=== PATIENT | female | born 1950 | race Caucasian/White ===

== ENCOUNTER 2022-06-28 12:22 | Emergency (ER) | payer MEDICARE, SELFPAY ==
[2022-06-28 12:37] VITALS: BP 118/82; PULSE 85; RESP 18; TEMP 36.6; O2SAT 97; BMI 29.2
--- NOTE | 2022-06-28 13:34 | ED.ABDPAIN ---
HPI - Abdominal Pain General Time Seen by Provider: 13:35 Date Seen: 06/28/22 Chief Complaint: Flank Pain Stated Complaint: Poss kidney stone, nausea vomiting Time Seen by Provider: 06/28/22 13:34 Source: patient, RN notes reviewed and old records reviewed Mode of arrival: ambulatory Limitations: no limitations History of Present Illness HPI narrative: patient is a very pleasant 72-year-old female with a history of kidney stones and urinary tract infection as well as hypertension, cholecystectomy who comes to the emergency room for evaluation regarding 48 hours of vomiting and diarrhea. Patient states that for 48 hours she has had nonbloody liquid diarrhea that she describes is pouring out of her. This is associated with persistent vomiting and she has been unable to keep anything down. Briefly she ate a sandwich yesterday but vomited up a few hours later. She has not had fever or chills. She has no known ill contacts at this point. She does describe the onset of right flank pain yesterday that eventually went away. It did come back again this morning. Patient did take oxycodone this morning. She states that it is not present at this time. She notes that she does get relief of how she feels when she vomits but no change in discomfort when she has a bowel movement. Patient denies any symptoms of COVID. notes she has not taken her antihypertensives for 2 days which include hydrochlorothiazide and losartan. Patient does have a history of a kidney stone and stated when she had this she also received antibiotics so she felt she also had a coexisting infection. No recent antibiotics or history of C diff. Related Data Home Medications Medication Instructions Recorded Confirmed hydrochlorothiazide 25 mg tablet 25 mg PO DAILY 06/28/22 06/28/22 losartan 50 mg tablet 50 mg PO DAILY 06/28/22 06/28/22 Previous Rx's Medication Instructions Recorded cefdinir 300 mg capsule 300 mg PO BID 7 days #14 caps 06/28/22 Allergies Allergy/AdvReac Type Severity Reaction Status Date / Time No Known Drug Allergies Allergy Verified 06/28/22 16:35 Review of Systems Status of ROS Reports: 10 or more systems reviewed and unremarkable except as noted in History and below Const Denies: fever or chills ENMT Denies: throat pain or difficulty swallowing Cardio Denies: chest pain, edema, swelling of feet/ankles or shortness of breath with exertion Resp Denies: shortness of breath or cough GI Reports: abdominal pain ( Uncomfortable), nausea, vomiting and diarrhea; Denies: difficulty swallowing or blood in stool Denies: painful urination Musculo Reports: back pain ( occasional episodes of right flank pain.) Neuro Denies: headache PFSH PFSH Social History Smoking Status: Never smoker How often do you have a drink containing alcohol: never AUDIT-C Alcohol total score: 0 Non-prescribed substance use: denies use Exam Narrative: Exam Narrative: Patient is currently in the hallway due to high patient volume. She is nontoxic but she is fatigued in appearance. Oral cavity with tacky mucous membranes. Neck is supple without lymphadenopathy. Heart with a regular rate and rhythm. Lungs are clear bilaterally. Abdomen is soft no tenderness. No CVA tenderness with percussion. Lower extremities without edema. Const: Vital Signs, click to edit/add: Vital Signs - 24 hr 06/28/22 12:37 Temperature 97.8 F Pulse Rate [Pulse Oximeter] 85 Respiratory Rate 18 Blood Pressure [Ri ght Upper Arm] 118/82 Pulse Oximetry 97 Oxygen Delivery Me thod Room Air Documenting provider has reviewed patient's vital signs: yes Course Course Hospital Course: Will place IV and give fluids. Will check CBC, comprehensive panel, CRP, urinalysis, amylase, lipase. I do believe that we will need to do a CT scan but given patient's age would prefer to wait on creatinine prior to that. Differential diagnosis does include But is not limited to pyelonephritis, enteritis, C diff, ureteral colic, nephrolithiasis. Reevaluation(s) Reevaluation #1: patient noted to have pain come back. Patient was given morphine 4 mg which did not help her discomfort. She was then given Dilaudid 0.5 mg with moderate improvement. Reevaluation #2: Repeat dose of Dilaudid was given and patient is feels much improved. She has been able to tolerate small amounts of water. Will challenge her with some Sprite at this point. Consultations Consultation #1: [facility] the [facility]. My concern was stones that were noted on a CT. These were nonobstructing stones and therefore Urology does not feel we need to be worried. Certainly she is not septic at this point. Vital Signs Vital signs: Initial Vital Signs Temperature 97.8 F 06/28/22 12:37 Temperature Source Temporal Artery Scan 06/28/22 12:37 Pulse Rate 85 06/28/22 12:37 Respiratory Rate 18 06/28/22 12:37 Blood Pressure 118/82 06/28/22 12:37 Blood Pressure Mean 94 06/28/22 12:37 Blood Pressure Position Sitting 06/28/22 12:37 Pulse Oximetry 97 06/28/22 12:37 Oxygen Delivery Method 06/28/22 12:37 Vital Signs Temperature 97.8 F 06/28/22 12:37 Pulse Rate 85 06/28/22 12:37 Respiratory Rate 18 06/28/22 12:37 Blood Pressure 118/82 06/28/22 12:37 Pulse Oximetry 97 06/28/22 12:37 Oxygen Delivery Method 06/28/22 12:37 Temperature 97.8 F 06/28/22 12:37 Pulse Rate 85 06/28/22 12:37 Respiratory Rate 18 06/28/22 12:37 Blood Pressure 118/82 06/28/22 12:37 Pulse Oximetry 97 06/28/22 12:37 Oxygen Delivery Method 06/28/22 12:37 MDM - Abdominal Pain MDM Narrative Medical decision making narrative: 1. UTI-I do think patient likely has very early pyelonephritis given the appearance of the urine as well as hyperemia of the ureter. Fortunately there is no evidence of perinephric stranding. Patient was given Rocephin 1 g IV. She will continue on Omnicef 300 mg p.o. b.i.d. starting tomorrow morning. Given the severity of her symptoms I did not feel comfortable with Keflex and wanted broader spectrum antibiotic. I would like her to follow up with her primary MD this week so that they can check a culture and ensure correct antibiotic selection. 2. Nausea vomiting diarrhea-I believe this to be viral in nature. Patient has had no further vomiting or diarrhea since she has been here in the emergency room. I advised against the use of Imodium. Return to the emergency room for worsening symptoms. 3. Nephrolithiasis without ureteral obstruction-discussed with Urology. Patient states she lives close to the hospital. I have advised her to return for fever, vomiting, worsening symptoms. 4. Right flank pain-likely related to 1. Recommend [place] 5/325 1-2 tabs p.o. q.4-6 hours p.r.n. 12. With no refills via [facility]. 3. Disposition-return for worsening symptoms. Zofran and [place] via [facility]. Omnicef sent to pharmacy. Medical Records Attestation: I reviewed the patient's medical records. Lab Data Attestation: I reviewed the patient's lab results. Labs: Lab Results 06/28/22 06/28/22 06/28/22 Range/Units 14:02 14:02 14:02 WBC 9.00 (4.50-11.00) K/uL RBC 4.82 (4.00-5.20) m/uL Hgb 14.5 (12.0-16.0) gm/dL Hct 43.2 (33.0-51.0) % MCV 90 (80-100) fL MCH 30 (26-34) pg MCHC 34 (32-36) gm/dL RDW Coeff of Kimber[place] 13.0 (11.5-15.5) % Plt Count 311 (140-440) K/uL Neut % (Auto) 72.4 H (42.0-72.0) % Lymph % (Auto) 16.7 L (20-44) % [place] % (Auto) 10.1 (0.0-11.0) % Eos % (Auto) 0.4 (0.0-7.0) % Baso % (Auto) 0.3 (0.0-3.0) % Neut # (Auto) 6.50 (1.7-7.0) K/uL Lymph # (Auto) 1.50 (0.90-2.90) K/uL [place] # (Auto) 0.90 (0.00-0.90) K/UL Eos # (Auto) 0.04 (0.00-0.50) K/uL Baso # (Auto) 0.03 (0.00-0.30) K/uL Abs Immat Gran (auto) 0.01 (0.00-0.30) K/uL Imm/Tot Granulo (auto) Not Reportable Sodium 139 (135-149) mmol/L Potassium 3.3 L (3.6-5.1) mmol/L Chloride 102 (96-114) mmol/L Carbon Dioxide 23 (20-32) mmol/L BUN 26 (7-30) mg/dL Creatinine 0.9 (0.5-1.5) mg/dL Estimated Creat Clear 42.07 Estimated GFR 68 ml/min Glucose 93 (60-115) mg/dL Calcium 9.0 (8.4-10.6) mg/dL Total Bilirubin 0.6 (0.1-1.5) mg/dL AST 27 (12-35) U/L ALT 25 (4-35) U/L Alkaline Phosphatase 83 (40-150) U/L C-Reactive Protein 2.4 H (0.5-1.0) mg/dL Total Protein 8.3 (6.0-8.3) g/dL Albumin 4.9 (3.3-5.0) g/dL Amylase 75 (18-89) U/L Lipase 38 (23-300) U/L Urine Color (Yellow) Urine Appearance (Clear) Urine pH (5.0-8.5) Ur Specific [place] (1.000-1.030) Urine Protein (Negative) Urine Glucose (UA) (Negative) Urine Ketones (Negative) Urine Blood (Negative) Urine Nitrite (Negative) Urine Bilirubin (Negative) Urine Urobilinogen (0.2-1.0) Ur Leukocyte Esterase (Negative) Urine RBC (0-2) Urine WBC (0-5) Ur Squamous Epith Cells (None-Few) Urine Bacteria (None) Urine Yeast (None) SARS-CoV-2 (PCR) Negative SARS-CoV-2 (Negative) Influenza Type A (PCR) Negative PCR FLU A (Negative) Influenza Type B (PCR) Negative PCR FLU B (Negative) 06/28/22 Range/Units 15:29 WBC (4.50-11.00) K/uL RBC (4.00-5.20) m/uL Hgb (12.0-16.0) gm/dL Hct (33.0-51.0) % MCV (80-100) fL MCH (26-34) pg MCHC (32-36) gm/dL RDW Coeff of Kimberly (11.5-15.5) % Plt Count (140-440) K/uL Neut % (Auto) (42.0-72.0) % Lymph % (Auto) (20-44) % [place] % (Auto) (0.0-11.0) % Eos % (Auto) (0.0-7.0) % Baso % (Auto) (0.0-3.0) % Neut # (Auto) (1.7-7.0) K/uL Lymph # (Auto) (0.90-2.90) K/uL [place] # (Auto) (0.00-0.90) K/UL Eos # (Auto) (0.00-0.50) K/uL Baso # (Auto) (0.00-0.30) K/uL Abs Immat Gran (auto) (0.00-0.30) K/uL Imm/Tot Granulo (auto) Sodium (135-149) mmol/L Potassium (3.6-5.1) mmol/L Chloride (96-114) mmol/L Carbon Dioxide (20-32) mmol/L BUN (7-30) mg/dL Creatinine (0.5-1.5) mg/dL Estimated Creat Clear Estimated GFR ml/min Glucose (60-115) mg/dL Calcium (8.4-10.6) mg/dL Total Bilirubin (0.1-1.5) mg/dL AST (12-35) U/L ALT (4-35) U/L Alkaline Phosphatase (40-150) U/L C-Reactive Protein (0.5-1.0) mg/dL Total Protein (6.0-8.3) g/dL Albumin (3.3-5.0) g/dL Amylase (18-89) U/L Lipase (23-300) U/L Urine Color Yellow (Yellow) Urine Appearance Clear (Clear) Urine pH 5.5 (5.0-8.5) Ur Specific [place] 1.025 (1.000-1.030) Urine Protein Trace A (Negative) Urine Glucose (UA) Negative (Negative) Urine Ketones 2+ A (Negative) Urine Blood Trace-intact A (Negative) Urine Nitrite Negative (Negative) Urine Bilirubin Negative (Negative) Urine Urobilinogen 0.2 (0.2-1.0) Ur Leukocyte Esterase 1+ A (Negative) Urine RBC 5-10 A (0-2) Urine WBC 5-10 A (0-5) Ur Squamous Epith Cells Many A (None-Few) Urine Bacteria Few A (None) Urine Yeast Few A (None) SARS-CoV-2 (PCR) (Negative) Influenza Type A (PCR) (Negative) Influenza Type B (PCR) (Negative) Imaging Data CT scan - abdomen: Attestation: I have reviewed the pertinent imaging results. My impression: multiple air-fluid levels Radiologist's impression: Liver: Unremarkable. Gallbladder and bile ducts: Surgically absent gallbladder. Normal caliber bile ducts. Spleen: Unremarkable. Pancreas: Unremarkable. Adrenal glands: Unremarkable. No nodules. Kidneys and Ureters: Symmetric cortical enhancement. Dependent high density in the right renal pelvis could be pooling of contrast or small stone. Additional density in the interpolar region of the right kidney (65) could be a stone or contrast excretion. Mild bilateral hydronephrosis, with hyperemia of the right renal pelvis and proximal ureter. Lymph Nodes and Retroperitoneum: Unremarkable. Vasculature: Incidentally noted retroaortic left renal vein, a normal variant. GI tract: Unremarkable. Normal in caliber. Normal appendix. Peritoneum/Abdominal Wall: Unremarkable. No free air or free fluid. Pelvic Viscera: Surgically absent. Bladder: Laxity of the pelvic floor. Otherwise normal bladder. Bones: Unremarkable for age. IMPRESSION: 1. Questionable right interpolar and pelvic stone versus excretion of contrast. 2. Mild bilateral hydronephrosis. Hyperemia of the proximal right ureter could be inflammatory or infectious changes. 3. No other significant CT abnormality. Discharge Plan Discharge Clinical Impression: Nausea vomiting and diarrhea, Acute UTI Patient Disposition: Home, Self-Care Condition: Improved Additional Instructions: Zofran as needed for nausea. Push fluids as much as possible. For low potassium recommend increasing banana intake. For pain [place] as needed. [place] also known as hydrocodone and Tylenol or Vicodin. Cautious use as this can be addicting but may be used for discomfort. For antibiotic will use Omnicef also known as cefdinir. This is a cephalosporin. We will have to wait until the urine culture returns to ensure that we picked the right antibiotic. You have tested negative for COVID and influenza today. Follow-up with your primary MD at later this week for recheck to ensure that you are improving and to check the urine culture. Return to the emergency room for fever, persistent vomiting, worsening symptoms and as needed. Prescriptions: New cefdinir 300 mg capsule 300 mg PO BID 7 Days Qty: 14 0RF No Action losartan 50 mg tablet 50 mg PO DAILY Label Comments: TAKE 1 TABLET (50 MG) BY MOUTH ONCE DAILY. hydrochlorothiazide 25 mg tablet 25 mg PO DAILY Label Comments: TAKE 1 TABLET (25 MG) BY MOUTH ONCE DAILY. Stand Alone Forms: [employer] Info Instructions
[2022-06-28] MEDS: 0.9 % SODIUM CHLORIDE 1000 ml 1,000 ML IV ×2 (14:12→14:52)
[2022-06-28] MEDS: ONDANSETRON 2 MG/ML inj 4 MG IVP (14:12)
[2022-06-28] MEDS: MORPHINE 4 MG/ML INJ IVP (14:15)
[2022-06-28] MEDS: HYDROmorphone 0.5 mg/0.5 ml inj IVP ×2 (14:30→17:00)
[2022-06-28 14:40] LABS: Basophils Absolute Auto 0.03 K/uL (0.00-0.30); Basophils Percent Auto 0.3 % (0.0-3.0); Eosinophils Absolute Auto 0.04 K/uL (0.00-0.50); Eosinophils Percent Auto 0.4 % (0.0-7.0); Hematocrit 43.2 % (33.0-51.0); Hemoglobin* 14.5 gm/dL (12.0-16.0); Immature Granulocytes Abs Auto 0.01 K/uL (0.00-0.30); Lymphocytes Percent Auto 16.7 % (20-44); Mean Corpuscular HGB Conc 34 gm/dL (32-36); Mean Corpuscular Hemoglobin 30 pg (26-34); Mean Corpuscular Volume 90 fL (80-100); Monocytes Percent Auto 10.1 % (0.0-11.0); Neutrophils Percent Auto 72.4 % (42.0-72.0); Platelet Count* 311 K/uL (140-440); Red Blood Count 4.82 m/uL (4.00-5.20)
[2022-06-28 14:45] LABS: Albumin* 4.9 g/dL (3.3-5.0); Chloride* 102 mmol/L (96-114)
[2022-06-28 14:46] LABS: Potassium* 3.3 mmol/L (3.6-5.1); Sodium* 139 mmol/L (135-149)
[2022-06-28 14:47] LABS: Slide Review Reflex No
[2022-06-28 14:48] LABS: Amylase* 75 U/L (18-89); Creatinine* 0.9 mg/dL (0.5-1.5); Est. Creatinine Clearance* 42.07; Estimated Glomerular Filt Rate 68 ml/min
[2022-06-28 14:49] LABS: Alanine Aminotransferase* 25 U/L (4-35); Alkaline Phosphatase* 83 U/L (40-150); Aspartate Amino Transferase* 27 U/L (12-35); Bilirubin Total* 0.6 mg/dL (0.1-1.5); Blood Urea Nitrogen* 26 mg/dL (7-30); Carbon Dioxide* 23 mmol/L (20-32); Glucose* 93 mg/dL (60-115); Lipase* 38 U/L (23-300); Total Protein* 8.3 g/dL (6.0-8.3)
[2022-06-28 14:52] LABS: C Reactive Protein* 2.4 mg/dL (0.5-1.0)
[2022-06-28 15:11] LABS: PCR FLU A Negative PCR FLU A (Negative); PCR FLU B Negative PCR FLU B (Negative)
[2022-06-28 15:16] LABS: SARS PCR* Negative SARS-CoV-2 (Negative)
[2022-06-28 15:36] LABS: Appearance Urine Clear (Clear); Bilirubin Urine Negative (Negative); Blood Urine Trace-intact (Negative); Color Urine Yellow (Yellow); Glucose Urine Negative (Negative); Ketones Urine 2+ (Negative); Leukocyte Esterase Urine 1+ (Negative); Nitrite Urine Negative (Negative); Protein Urine Trace (Negative); Specific Gravity Urine 1.025 (1.000-1.030); Urobilinogen Urine 0.2 (0.2-1.0); pH Urine 5.5 (5.0-8.5)
[2022-06-28 15:47] LABS: Bacteria Urine Few; Squamous Epithelial Cell Urine Many (None-Few)
--- NOTE | 2022-06-28 15:55 | CRLHL7_ITS ---
For Patients: As a result of the Century Cures Act, medical imaging exams and procedure reports are released immediately into your electronic medical record. You may view this report before your referring provider. If you have questions, please contact your health care provider. INDICATION: Vomiting, diarrhea, occasional flank pain. History of kidney stones. TECHNIQUE: CT abdomen and pelvis acquired with 81 mL Isovue 370 IV contrast. Coronal and sagittal reformats were generated. COMPARISON: None. FINDINGS: Lower chest: Linear bibasilar opacities are likely scarring. Liver: Unremarkable. Gallbladder and bile ducts: Surgically absent gallbladder. Normal caliber bile ducts. Spleen: Unremarkable. Pancreas: Unremarkable. Adrenal glands: Unremarkable. No nodules. Kidneys and Ureters: Symmetric cortical enhancement. Dependent high density in the right renal pelvis could be pooling of contrast or small stone. Additional density in the interpolar region of the right kidney (2/65) could be a stone or contrast excretion. Mild bilateral hydronephrosis, with hyperemia of the right renal pelvis and proximal ureter. Lymph Nodes and Retroperitoneum: Unremarkable. Vasculature: Incidentally noted retroaortic left renal vein, a normal variant. GI tract: Unremarkable. Normal in caliber. Normal appendix. Peritoneum/Abdominal Wall: Unremarkable. No free air or free fluid. Pelvic Viscera: Surgically absent. Bladder: Laxity of the pelvic floor. Otherwise normal bladder. Bones: Unremarkable for age. IMPRESSION: 1. Questionable right interpolar and pelvic stone versus excretion of contrast. 2. Mild bilateral hydronephrosis. Hyperemia of the proximal right ureter could be inflammatory or infectious changes. 3. No other significant CT abnormality. Please note that all CT scans at this facility use dose modulation, iterative reconstruction, and/or weight-based dosing when appropriate to reduce radiation dose to as low as reasonably achievable. Dictated by Colt Guerrero MD @ 06/28/2022 5:19:13 PM (Electronically Signed)
[2022-06-28 17:30] VITALS: BP 126/66; PULSE 72; RESP 14; O2SAT 97
[2022-06-28] MEDS: cefTRIAXone 1 GM in 0.9 % SODIUM CHLORIDE Mini-bag 100 ML IVPB (17:50)
[2022-06-28 18:30] VITALS: BP 130/81; PULSE 68; RESP 14; O2SAT 96
[2022-06-28 19:03] VITALS: BP 118/82; PULSE 85; RESP 18; TEMP 36.6
--- NOTE | 2022-06-30 09:01 | ED.NURSE ---
chart accessed due to concerns about her pain and wanted to know about urine culture. may return due to the pain and is worried about having sepsis, as the doctor had told her that when she was here on 06/28/22. denies fever.
== END 2022-06-28 19:04 | disposition home or self-care (01) ==
PROVIDERS: Emergency Provider Family Medicine; PCP Family Medicine
DX: N39.0 Urinary tract infection, site not specified (principal); N11.0 Nonobstructive reflux-associated chronic pyelonephritis; R11.2 Nausea with vomiting, unspecified; R19.7 Diarrhea, unspecified; I10 Essential (primary) hypertension; Z87.442 Personal history of urinary calculi; Z20.822 Contact with and (suspected) exposure to COVID-19; Z79.899 Other long term (current) drug therapy; N20.0 Calculus of kidney; N28.89 Other specified disorders of kidney and ureter
CPT/HCPCS: 36415; 74177; 80053; 81001; 82150; 83690; 85025; 86140; 87086; 87493; 87631; 96361; 96365; 96374; 96375; 96376; 99284; 99285; J0696; J1170; J2270; J2405; J7030; Q9967

== ENCOUNTER 2022-06-30 11:40 | Emergency (ER) | payer MEDICARE, SELFPAY ==
[2022-06-30 12:01] VITALS: BP 119/73; PULSE 76; RESP 20; TEMP 36.7; O2SAT 97; BMI 29.1
[2022-06-30 13:08] VITALS: BP 125/68; PULSE 72; RESP 20; O2SAT 95
--- OUTSIDE RECORDS SUMMARY | 2022-06-30 13:50 | XMS_ITS | Encounter Summary ---
:1950 Author Organization [facility] Address [address] [place] [address] Care Team Providers Name Role Phone Irma Chin MD Primary Care Provider Reason for Visit Auth/Cert Specialty Diagnoses / Procedures Referred By Contact Refer red To Contact Gastroenterology Diagnoses personal history of polyps, family history of colon cancer Rh Endoscopy Procedures COLONOSCOPY [address] [place] [address] Phone: Fax: Referral ID Status Reason Start Date Expiration Date Visits Requ ested Visits Authorized [id number] 1 1 Encounter Details Date Type Department Care Team Description 01/01/2018 Hospital Encounter [facility] Carlene Mendezah Endoscopy Pat Masters MD [address] COLON RECTAL [place], [place] SURGERY [id number] [facility] [phone] [address] [place], [place] [id number] (Wo rk) Social History Tobacco Use Types Packs/Day Years Used Date Smoking Tobacco: Never Smokeless Tobacco: Never Alcohol Use Standard Drinks/Week Comments Yes 0 (1 standard drink = 0.6 oz pure alcoho l) Occas Sex Assigned at Date Recorded Not on file documented as of this encounter Last Filed Vital Signs Vital Sign Reading Time Taken Comments Blood Pressure 117/72 01/01/2018 11:11 AM CDT Pulse - - Temperature - - Respiratory Rate 16 01/01/2018 11:11 AM CDT Oxygen Saturation 98% 01/01/2018 11:11 AM CDT Inhaled Oxygen Concentration - - Weight 72.6 kg (160 lb) 01/01/2018 9:25 AM CDT Height 160 cm (5' 3) 01/01/2018 9:25 AM CDT Body Mass Index 28.34 01/01/2018 9:25 AM CDT documented in this encounter Discharge Instructions Discharge InstructionsBridgette Patel RN - 01/01/2018 10:54 AM CDT Images from the original note were not included. Understanding Colon and Rectal Polyps The colon has a smooth lining composed of millions of cells. The colon (also called the large intestine) is a muscular tube that forms the last part of the digestive tract. It absorbs water and stores food waste. The colon is about 4 to 6 feet long. The rectum is the last 6 inches of the colon. The colon and rectum have a smooth lining composed of millions of cells. Changes in these cells can lead to growths in the colon that can become cancerous and should beremoved. When the Colon Lining Changes Changes that occur in the cells that line the colon or rectum can lead to growths called polyps. Over a period of years, polyps can turn cancerous. Removing polyps early may prevent cancer from ever forming. Polyps Polyps are fleshy clumps of tissue that form on the lining of the colon or rectum. Small polyps are usually benign (not cancerous). However, over time, cells in a polyp can change and become cancerous.The larger a polyp grows, the more likely this is to happen. Also, certain types of polyps known as a denomatous polyps are considered premalignant. This means that they will almost always become cancerous if they???re not removed. Cancer Almost all colorectal cancers start when polyp cells begin growing abnormally. As a cancerous tumor grows, it may involve more and more of the colon or rectum. In time, cancer can also grow beyond the colon or rectum and spread to nearby organs or to glands called lymph nodes. The cells can also travel to other parts of the body. This is known as metastasis. The earlier a cancerous tumor is removed, the better the chance of preventing its spread. ?? [id number] [employer], [address] [place] [address], [place] [address]. All rights reserved. This information is not intended as a substitute for professional medical care. Always follow your healthcare professional's instructions. Understanding Diverticulosis and Diverticulitis Pouches or diverticula usually occur in the lower part of the colon called the sigmoid. Diverticulitis occurs when the pouches become inflamed. The colon (large intestine) is the last part of the digestive tract. It absorbs water from stool andchanges it from a liquid to a solid. In certain cases, small pouches called diverticula can form in the colon wall. This condition is called diverticulosis. The pouches can become infected. If this happens, it becomes a more serious problem called diverticulitis. These problems can be painful. But they can be managed. Managing Your Condition Diet changes or taking medications are often tried first. These may be enough to bring relief. If the case is bad, surgery may be done. You and your doctor can discuss the plan that is best for you. If You Have Diverticulosis Diet changes are often enough to control symptoms. The main changes are adding fiber (roughage) and drinking more water. Fiber absorbs water as it travels through your colon. This helps your stool staysoft and move smoothly. Water helps this process. If needed, you may be told to take [id number]-[id number] stool softeners. To help relieve pain, antispasmodic medications may be prescribed. If You Have Diverticulitis Treatment depends on how bad your symptoms are. For mild symptoms: You may be put on a liquid diet for a short time. You may also be prescribed antibiotics. If these two steps relieve your symptoms, you may then be prescribed a high-fiber diet. If you still have symptoms, your doctor will discuss further treatment options with you. For severe symptoms: You may need to be admitted to the hospital. There, you can be given IV antibiotics and fluids. Once symptoms are under control, the above treatments may be tried. If these don???tcontrol your condition, your doctor may discuss the option of having surgery with you. [place] to Colon Health Help keep your colon healthy with a diet that includes plenty of high-fiber fruits, vegetables, and whole grains. Drink plenty of liquids like water and juice. Your doctor may also recommend avoiding seeds and nuts. ?? [phone] [employer], [address] [place] [address], [place] [address]. All rights reserved. This information is not intended as a substitute for professional medical care. Always follow your healthcare professional's instructions. HIGH FIBER DIET Fiber is present in all fruits, vegetables, cereals and grains. Fiber passes through the body undigested. A high fiber diet helps food move through the intestinal tract. The added bulk is helpful in preventing constipation. In people with diverticulosis it serves to clean out the pouches along the colon wall while preventing new ones from forming. A high fiber diet also reduces the risk of colon cancer, decreases blood cholesterol and prevents high blood sugar in people with diabetes. The foods listed below are high in fiber and should be included in your diet. If you are not used tohigh fiber foods, start with 1 or 2 foods from this list. Every 3-4 days add a new one to your diet until you are eating 4 high fiber foods per day. This should give you 20-35 Gm of fiber/day. It is also important to drink a lot of water when you are on this diet (6-8 glasses a day). Water causes the fiber to swell and increases the benefit. FOODS HIGH IN DIETARY FIBER: BREADS: Made with 100% whole wheat flour; jessica, wheat or rye crackers; tortillas, bran muffins CEREALS: Whole grain cereal with bran (Chex, Raisin Bran, Cinebar Bran), oatmeal, rolled oats, granola,wheat flakes, brown rice NUTS: Any nuts FRUITS: All fresh fruits along with edible skins, (bananas, citrus fruit, mangoes, pears, prunes, raisins, apples, pineapple, apricot, melon, jams and marmalades), fruit juices (especially prune juice) VEGETABLES: All types, preferably raw or lightly cooked: especially, celery, eggplant, potatoes, spinach, broccoli, brussel sprouts, winter squash, carrots, cauliflower, soybeans, lentils, fresh and dried beans of all kinds OTHER: Popcorn, any spices ?? [id number] [facility], [address] [place] [address], [place] [address]. All rights reserved. This information is not intended as a substitute for professional medical care. Always follow your healthcare professional's instructions. documented in this encounter Medications at Time of Discharge Medication Sig Dispensed Refills Start Date End Date ASPIRIN PO Take 81 mg by 0 mouth daily HYDROCHLOROTHIAZIDE PO Take 25 mg by 0 mouth daily Losartan Potassium (COZAAR PO) Take 50 mg by 0 mouth daily multivitamin, therapeutic with Take 1 tablet by 0 minerals (MULTI-VITAMIN) TABS mouth daily documented as of this encounter H&P Notes Faustina Mendez MD - 01/01/2018 9:29 AM CDT Pre-Endoscopy History and Physical Genoveva Bosch Date of : 1950 Age: [age] year old Date of Procedure: 01/01/2018 Primary care provider: Irma Chin Type of Endoscopy: colonoscopy Reason for Procedure: surveillance Type of Anesthesia Anticipated: Moderate Sedation HPI: Genoveva is a 67 year old female who will be undergoing the above procedure. A history and physical has been performed. The patient's medications and allergies have been reviewed. The risks and benefits of the procedure and the sedation options and risks were discussed with thepatient. All questions were answered and informed consent was obtained. She denies a personal or family history of anesthesia complications or bleeding disorders. Allergies Allergen Reactions ??? Lisinopril Cough Prior to Admission Medications Prescriptions Last Dose Informant Patient Reported? Taking? ASPIRIN PO Past Week at Unknown time Yes Yes Sig: Take 81 mg by mouth daily HYDROCHLOROTHIAZIDE PO 12/31/2017 at Unknown time Yes Yes Sig: Take 25 mg by mouth daily Losartan Potassium (COZAAR PO) 12/31/2017 at Unknown time Yes Yes Sig: Take 50 mg by mouth daily multivitamin, therapeutic with minerals (MULTI-VITAMIN) TABS Past Week at Unknown time Yes Yes Sig: Take 1 tablet by mouth daily Facility-Administered Medications: None There is no problem list on file for this patient. Past Medical History: Diagnosis Date ??? FH: colon cancer ??? Hyperlipidemia ??? Hypertension ??? Kidney stones ??? Melanoma (H) ??? Motion sickness ??? PONV (postoperative nausea and vomiting) ??? Skin melanoma (H) Past Surgical History: Procedure Laterality Date ??? ABDOMEN SURGERY GABI/BSO ??? CHOLECYSTECTOMY ??? COLONOSCOPY ??? CYSTOSCOPY, RETROGRADES, COMBINED 08/04/2013 Procedure: COMBINED CYSTOSCOPY, RETROGRADES;; Surgeon: Saurav Kelsey MD; Location: [facility] OR ??? DACRYOCYSTORHINOSTOMY Right 12/19/2016 Procedure: DACRYOCYSTORHINOSTOMY; RIGHT DACRYOCYSTORHINOSTOMY ; Surgeon: Sandra Cochran MD; Location: [facility] ??? GENITOURINARY SURGERY bladder repair, kidney stone ??? DECK STEWARD SURGERY ??? LASER HOLMIUM LITHOTRIPSY URETER(S), INSERT STENT, COMBINED 08/04/2013 Procedure: COMBINED CYSTOSCOPY, URETEROSCOPY, LASER HOLMIUM LITHOTRIPSY URETER(S), INSERT STENT; CYSTOSCOPY, LEFT RETROGRADES, LEFT URETEROSCOPY, LEFT DOUBLE J STENT PLACEMENT, stone extraction; Surgeon: Saurav Kelsey MD; Location: [facility] OR ??? RECTOCELE REPAIR ??? WISDOM TEETH Social History Substance Use Topics ??? Smoking status: Never Smoker ??? Smokeless tobacco: Never Used ??? Alcohol use Yes Comment: Occas Family History Problem Relation Age of Onset ??? Colon Cancer Mother ??? Colon Cancer Father REVIEW OF SYSTEMS: 5 point ROS negative except as noted above in HPI, including Gen., Resp., CV, GI & system review. PHYSICAL EXAM: Ht 1.6 m (5' 3) Wt 72.6 kg (160 lb) BMI 28.34 kg/m2 Estimated body mass index is 28.34 kg/(m^2)as calculated from the following: Height as of this encounter: 1.6 m (5' 3). Weight as of this encounter: 72.6 kg (160 lb). GENERAL APPEARANCE: healthy and alert MENTAL STATUS: alert AIRWAY EXAM: Mallampatti Class II (visualization of the soft palate, fauces, and uvula) RESP: lungs clear to auscultation - no rales, rhonchi or wheezes CV: regular rates and rhythm DIAGNOSTICS: Not indicated IMPRESSION ASA Class 2 - Mild systemic disease PLAN: Plan for colonoscopy. We discussed the risks, benefits and alternatives and the patient wished to proceed. The above has been forwarded to the consulting provider. Signed Electronically by: Faustina Mendez MD January 01, 2018 documented in this encounter Miscellaneous Notes Op Note - Faustina Mendez MD - 01/01/2018 10:42 AM CDT See Provation Note In Chart Faustina Mendez MD [facility] Office documented in this encounter Plan of Treatment Not on filedocumented as of this encounter Procedures Procedure Name Priority Date/Time Associated Comments Diagnosis SURGICAL PATHOLOGY Routine 01/01/2018 10:34 Resul ts for this EXAM AM CDT procedure are i n the results section. COLONOSCOPY Routine 01/01/2018 10:04 Results for this AM CDT procedure are i n the results section. COLONOSCOPY, 01/01/2018 10:02 small transverse FLEXIBLE, WITH LESION AM CDT colon polyp REMOVAL USING SNARE documented in this encounter Results Surgical pathology exam (01/01/2018 10:34 AM CDT) Component Value Ref Test Analysis Performed At [facility] Enable Injections Range Method Time Signature Copath Report Patient Name: GENOVEVA BOSCH MR#: [id number] Specimen #: [id number] Collected: 01/01/2018 Received: 01/01/2018 Reported: 01/02/2018 14:31 Ordering Phy(s): FAUSTINA MENDEZ For improved result formatting, select 'View Enhanced Report Format' under Linked Documents section. SPECIMEN(S): Colon polyp, transverse FINAL DIAGNOSIS: Transverse colon, polyp, biopsy/polypectomy- - Tubular adenoma; negative for high-grade dysplasia and mal ignancy. Electronically signed out by: Jimena Roth M.D. CLINICAL HISTORY: History of polyps, family history of colon cancer. GROSS: The specimen is received in formalin labeled with the patien t's name, identifying information and designated transverse polyp. ??It consists of a 0.2 cm bosch chidi te tissue fragment. ?? Submitted entirely in one block. (Dictated by: CRISTOFER Qiu 01/01/2018 12:23 PM) MICROSCOPIC: Microscopic examination is performed. CPT Codes: A: 54344-TM0 TESTING LAB LOCATION: [address] ??[id number] COLLECTION SITE: Client: [facility] Location: [facility] (R) Specimen (Source) Anatomical Collection Method Collection Time Re ceived Time Location / / Volume Laterality Polyp LARGE INTESTINE 01/01/2018 10:34 (morphologic PART / Unknown AM CDT abnormality) Faustina [facility] Performing Organization Address City/State/ZIP Code Phon e Number CÉSAR COLONOSCOPY (01/01/2018 10:04 AM CDT) [facility] Method Time Signature COLONOSCOPY [facility] RAD IOLOGY RESULTS Patient Name: Genoveva Bosch ?Procedure D ate: 01/01/2018 10:04 AM ? Accou nt Number: [id number] Date of : 1950 ? Admit Type: Outp atient Age: 67 ? Gender: Female Attending MD: Faustina Mendez MD ?Total Sedati on Time: 29 minutes of continuous bedside 1:1. IT:11, WDT:16m Instrument Name: 139 ? Procedure: ?Colonoscopy Indications: ?Screening for colorec laurita malignant neoplasm Providers: ?Faustina Mendez MD (Doctor) Referring MD: ? Irma Chin (Referrin ella TAYLOR) Medicines: ?Fentanyl 100 micrograms IV, Midazolam 3 mg IV Complications: ?No immediate complications. Procedure: ?Pre-Anesthesia Assessment: ?- Prior to the procedure, a History and Physical ?was performed, and patient medications and ?allergies were reviewed. The patient is competent. ?The risks and benefits of the procedure and the ?sedation options and risks were discussed with the ?patient. All questions were answered and informed ?consent was obtained. Patient identification and ?proposed procedure were verified by the physician ?and the nurse in the endoscopy suite. Mental Status ?E xamination: alert and oriented. Airway ?Examination: normal oropharyngeal airway and neck ?mobility. Respiratory Examination: clear to ?auscultation. CV Examination: normal. Prophylactic ?Antibiotics: The patient does not require ?prophylactic antibiotics. Prior Anticoagulants: The ?patient has taken no previous anticoagulant or ?antiplatelet agents. ASA Grade Assessment: II - A ?patient with mild systemic disease. After reviewing ?the risks and benefits, the patient was deemed in ?satisfactory condition to undergo the procedure. ?The anesthesia plan was to use moderate sedation / ?analgesia (conscious sedation). Immediately prior ?to administration of medications, the patient was ?re-assessed for adequacy to receive sedatives. The ?heart rate, respiratory rate, oxygen saturations, ?blood pressure, adequacy of pulmonary ventilation, ?and response to care were monitored throughout the ?procedure. The physical status of the patient was ?re-assessed after the procedure. ?After obtaining informed consent, the colonoscope ?was passed under direct vision. Throughout the ?procedure, the patient's blood pressure, pulse, and ?oxygen saturations were monitored continuously. The ?[employer] Colonoscope Model #[id number]-H190L, ?[place]#139, SN#[id number] was introduced through the ?anus and advanced to 5 cm into the ileum. The ?colonoscopy was performed without difficulty. The ?patient tolerated the procedure well. The quality ?of the bowel preparat ion was good. ? Findings: ? The perianal and digital rectal examinations were nor mal. Pertinent ? negatives include normal sphincte r tone and no palpable rectal lesions. ? The terminal ileum appeared normal. ? A 2 mm polyp was found in the transverse colon. The polyp was sessile. ? The polyp was removed with a cold snare. Resect ion and retrieval were ? complete. ? A few small-mouthed diverticula were found in the sig moid colon. ? The retroflexed view of the dista l rectum and anal verge was normal and ? showed no anal or rectal abnormalities. ? Impression: ? - The examined portion of the ileum was normal. ?- One 2 mm polyp in the transverse colon, removed ?with a cold snare. Resected and retrieved. ?- Diverti culosis in the sigmoid colon. ?- The distal rectum and anal verge are normal on ?retroflexion view. Recommendation: ? - Repeat colonoscopy in 5 years for surveillance. ? Procedure Code(s): ? --- Professional --- ? 57439, Colonoscopy, flexible; with removal of tumor (s), polyp(s), or ? other lesion(s) by snare technique Diagnosis Code(s): ? --- Professional --- ? Z12.11, Encounter for screening for malignant neoplas m of colon ? D12.3, Benign neoplasm of transverse colo n (hepatic flexure or splenic ? flexure) ? K57.30, Diverticulosi s of large intestine without perforation or abscess ? without bleeding CPT copyright 2016 [employer]. All rights reserved. The codes documented in this report are prelimin maru and upon job putter up and ticket preparer review may be revised to meet current compliance requirements. Faustina Mendez MD 01/01/2018 10:49:10 AM I was physically present for the entire viewing portion of t he exam. Faustina Mendez MD Number of Addenda: 0 Note Initiated On: 01/01/2018 10:04 AM MRN: ?[id number] Procedure Date: ? 01/01/2018 10:04:55 AM Scope Withdrawal Time: 0 hours 16 minutes 2 seconds Total Procedure Duration: 0 hours 27 minutes 55 seconds Estimated Blood Loss: ? Scope In: 10:12:00 AM Scope Out: 10:39:55 AM Specimen (Source) Anatomical Collection Method Collection Time Re ceived Time Location / / Volume Laterality 01/01/2018 10:04 AM CDT Irma Chin MD PROCEDURES Performing Organization Address City/State/ZIP Code Phon e Number RADIOLOGY RESULTS documented in this encounter Visit Diagnoses Not on filedocumented in this encounter Administered Medications Inactive Administered Medications - up to 3 most recent administrations Medication Order MAR Action Action Date Dose Rate Site fentaNYL (PF) (SUBLIMAZE) Given 01/01/2018 10:10 AM CDT 100 mcg injection PRN, Administer over 3-5 Minutes, Starting on Sun01/01/18 at 1010, Intra-procedure midazolam (VERSED) injection Given 01/01/2018 10:18 AM CDT 1 mg Administer over 2 Minutes, PRN, Starting on Sun01/01/18 at 1010, Intra-procedure Given 01/01/2018 10:10 AM CDT 2 mg ondansetron (ZOFRAN) injection 4 mg 4 mg, Intravenous, EVERY 6 HOURS PRN, nausea, vomiting , Administer over 2-5 Minutes, Starting on Sun01/01/18 at 1049, This is Step 1 of nausea and vomiting management. If nausea not resolved in 15 minutes, go t o Step 2 prochlorperazine (COMPAZINE). Irritant. For ordered doses up to 4 mg, give IV Push undiluted over 2-5 minutes., Post-procedure ondansetron (ZOFRAN-ODT) ODT tab 4 mg 4 mg, Oral, EVERY 6 HOURS PRN, nausea, v omiting, Starting on Sun01/01/18 at 1049, This is Step 1 of nausea and vomiting management. If n ausea not resolved in 15 minutes, go to Step 2 prochlorperazine (COMPAZINE). Do not push through foil backing. Peel back foil and gently remove. Place on to ngue immediately. Administration with liquid unnecessary W ith dry hands, peel back foil backing and gently remove tablet; do not push oral d isintegrating tablet through foil backing; administer immediately on tongue and oral disintegrati ng tablet dissolves in seconds; then swallow with saliva; liquid not required ., Post-procedure sodium chloride (PF) 0.9% PF flush 3 mL Given 01/01/2018 10:19 AM CDT 3 mLs 3 mL, Intracatheter, EVERY 1 HOUR PRN, line flush, for peripheral IV flush post IV meds, Starting on Sun01/01/18 at 1006, Pre-procedure Given 01/01/2018 10:11 AM CDT 3 mLs documented in this encounter Active and Recently Administered Medications Times are shown in CDT. Scheduled Medication Order 12/30/2017 12/31/2017 01/01/2018 sodium chloride (PF) 0.9% PF flush 3 mL 1015 (Canceled Entry - Provider: Orders Generic Provider - Comment: Automatically canceled at discontinue of medication order) 3 mL, Intracatheter, EVERY 8 HOURS, Firs t dose on Sun01/01/18 at 1015, And Q1H PRN, to lock peripheral IV dormant line., Pre-procedure PRN Medication Order 12/30/2017 12/31/2017 01/01/2018 fentaNYL (PF) (SUBLIMAZE) injection 1010 (Given - Provider: Eileen Colon RN - Comment: vorb) Administer over 3-5 Minutes, PRN, Starting Sun01/01/18 at 101 0, Intra-procedure flumazenil (ROMAZICON) injection 0.2 mg 0.2 mg, Intravenous, EVERY 1 MIN PRN, be nzodiazepine reversal, over sedation, Administer over 1 Minutes, Starting Sun01/01/18 at 1049, For 12 hours, Give over 15 seconds. If inadequate response after 45 seconds, may repeat up to a MAX total do se of 1 mg. Continue monitoring until discharge criteria are met for a minimum of 2 hours Irritant. For ordered doses up to 1 mg, give IV Push undiluted. Administer each 0.2mg over 15 seconds., Post-procedure lidocaine (LMX4) kit Topical, EVERY 1 HOUR PRN, pain, with VA D insertion or accessing implanted port., Starting Sun01/01/18 at 1006, Do NOT give if patient has a history of allergy to any local anesthetic or any ran prod uct. Apply 30 minutes prior to VAD inser tion or port access. MAX Dose: 2.5 g (?? of 5 g tube), Pre-procedure lidocaine 1 % 1 mL 1 mL, Other, EVERY 1 HOUR PRN, mild pain with VAD insertion or accessing implanted port, Starting 01/01/18 at 1006, Do NOT give if patient has a history of allergy to any local anesthetic or any medrano e product. MAX dose 1 mL subcutaneous O R intradermal in divided doses., Pre-procedure May continue current IV fluid if patient has IV fluids infusing until discharge. CONTINUOUS PRN, Starting 01/01/18 at 1 049, Until 01/01/18 at 1319, Post-procedure midazolam (VERSED) injection 101 0 (Given - Provider: Eileen Colon RN - Comment: fredi)1018 (Given - Provider: Eileen Colon RN - Comment: fredi) Administer over 2 Minutes, PRN, Starting 01/01/18 at 1010, Int ra-procedure naloxone (NARCAN) injection 0.1-0.4 mg 0.1-0.4 mg, Intravenous, EVERY 2 MIN PRN , opioid reversal, Starting 01/01/18 at 1049, For 24 hours, For apnea or imminent respiratory arrest: give 0.4 mg IV undiluted Q 2 minutes PRN until desired deg ree of reversal is obtained, stop opioid and notify provider. Continue monitoring until discharge criteria are met for a minimum of 2 hours. For severe sedation, decrease in respiratory depth, quality o r Respiratory Rate less than 8: give 0.1 mg IV Q 2 minutes x 3 doses, stop opioid and notify provider. Try to minimize reversal of analgesia especially in end-of-life patients. Continue monitoring until discharge criteria are met for a minimu m of 2 hours For ordered doses up to 2mg give IVP. Give each 0.4mg over 15 seconds in emergency situations. For non- emergent situations further dilute in 9mL of N S to facilitate titration of response., Post-procedure ondansetron (ZOFRAN) injection 4 mg 4 mg, Intravenous, ONCE PRN, nausea, vom iting, Administer over 2-5 Minutes, Starting 01/01/18 at 1006, For 1 dose, Give in ENDO pre procedure prep area. Irritant. For ordered doses up to 4 mg, give IV Push undiluted over 2-5 minutes., Pre-procedure ondansetron (ZOFRAN) injection 4 mg(Linked Group 1) 4 mg, Intravenous, EVERY 6 HOURS PRN, na usea, vomiting, Administer over 2-5 Minutes, Starting 01/01/18 at 1049, This is Step 1 of nausea and vomiting management. If nausea not resolved in 15 minutes, go to Step 2 prochlorperazine (COMPAZINE ). Irritant. For ordered doses up to 4 mg, give IV Push undiluted over 2-5 minutes., Post-procedure ondansetron (ZOFRAN-ODT) ODT tab 4 mg(Linked Group 1) 4 mg, Oral, EVERY 6 HOURS PRN, nausea, v omiting, Starting 01/01/18 at 1049, This is Step 1 of nausea and vomiting management. If nausea not resolved in 15 minutes, go to Step 2 prochlorperazine (TREVON ZINE). Do not push through foil backing. Peel back foil and gently remove. Place on tongue immediately. Administration with liquid unnecessary With dry hands, peel back foil backing and gently remove ta blet; do not push oral disintegrating ta blet through foil backing; administer immediately on tongue and oral disintegrating tablet dissolves in seconds; then swallow with saliva; liquid not required., Post-procedure sodium chloride (PF) 0.9% PF flush 3 mL 1011 (Given - Provider: Eileen Colon RN)1019 (Given - Provider: Eileen Colon RN) 3 mL, Intracatheter, EVERY 1 HOUR PRN, l ine flush, for peripheral IV flush post IV meds, Starting 01/01/18 at 1006, Pre-procedure sodium chloride (PF) 0.9% PF flush 3 mL 3 mL, Intravenous, EVERY 1 MIN PRN, line flush, after medication administration. For peripheral IV flush post IV meds, Starting 01/01/18 at 1049, Post-procedure Linked Groups Order Group 1: ondansetron (ZOFRAN-ODT) ODT tab 4 mgJump to med 4 mg, Oral, EVERY 6 HOURS PRN, nausea, v omiting, Starting 01/01/18 at 1049
This is Step 1 of nausea and vomiting management. If nausea not resolved in 15 minutes, go to Rolando p 2 prochlorperazine (COMPAZINE). Do not push through foil backing. Peel back foil and gently remove. Place on tongue immediately. Administration with liquid unnecessary With dry hands, peel ba ck foil backing and gently remove tablet ; do not push oral disintegrating tablet through foil backing; administer immediately on tongue and oral disintegrating tablet dissolves in seconds; then swallow with saliva; liquid not required.
Pos t-procedure Or ondansetron (ZOFRAN) injection 4 mgJump to med 4 mg, Intravenous, EVERY 6 HOURS PRN, na usea, vomiting, Administer over 2-5 Minutes, Starting 01/01/18 at 1049
This is Step 1 of nausea and vomiting management. If nausea n ot resolved in 15 minutes, go to Step 2 prochlorperazine (COMPAZINE). Irritant. For ordered doses up to 4 mg, give IV Push undiluted over 2-5 minutes.
Post-procedure documented in this encounter Care Teams Resident Physician In Radiology Relationship Specialty Start Date End Date Irma Chin, PCP - General Family Practice documented as of this encounter
--- OUTSIDE RECORDS SUMMARY | 2022-06-30 13:50 | XMS_ITS | Clinical Summary ---
:1950 Author Organization [facility] Address [address] [place] [address] Care Team Providers Name Role Phone Irma Chin MD Primary Care Provider Allergies Active Allergy Reactions Severity Noted Date Comments Lisinopril Cough 12/18/2016 Medications Medication Sig Dispensed Refills Start Date End Date Status ASPIRIN PO Take 81 mg by 0 Activ e mouth daily multivitamin, therapeutic Take 1 tablet 0 Active with minerals by mouth (MULTI-VITAMIN) TABS daily Losartan Potassium (COZAAR Take 50 mg by 0 Active PO) mouth daily HYDROCHLOROTHIAZIDE PO Take 25 mg by 0 Active mouth daily Active Problems No known active problems Family History Medical History Relation Comments Colon Cancer Father Colon Cancer Mother Relation Status Comments Father Mother Alive Social History Tobacco Use Types Packs/Day Years Used Date Smoking Tobacco: Never Smokeless Tobacco: Never Alcohol Use Standard Drinks/Week Comments Yes 0 (1 standard drink = 0.6 oz pure alcoho l) Occas Sex Assigned at Date Recorded Not on file Last Filed Vital Signs Vital Sign Reading Time Taken Comments Blood Pressure 117/72 01/01/2018 11:11 AM CDT Pulse - - Temperature 36.3 ??C (97.4 ??F) 12/19/2016 9:45 AM CDT Respiratory Rate 16 01/01/2018 11:11 AM CDT Oxygen Saturation 98% 01/01/2018 11:11 AM CDT Inhaled Oxygen Concentration - - Weight 72.6 kg (160 lb) 01/01/2018 9:25 AM CDT Height 160 cm (5' 3) 01/01/2018 9:25 AM CDT Body Mass Index 28.34 01/01/2018 9:25 AM CDT Plan of Treatment Health Maintenance Due Date Last Done Comments ADVANCE CARE PLANNING 1950 ANNUAL REVIEW OF HM ORDERS 1950 CT COLONOGRAPHY 1950 DEXA 1950 FIT-DNA (Cologuard) 1950 FIT 1950 FLEX SIG 1950 HEPATITIS B IMMUNIZATION (1 1950 of 3 - 3-dose series) MAMMO SCREENING 1950 COVID-19 Vaccine (#1) 1950 HEPATITIS C SCREENING 1968 DTAP/TDAP/TD IMMUNIZATION 1975 (1 - Tdap) LIPID 1995 ZOSTER IMMUNIZATION (2 of 05/20/2012 03/25/2012 3) FALL RISK ASSESSMENT 2015 MEDICARE ANNUAL WELLNESS 2015 VISIT PHQ-2 (once per calendar 08/27/2021 year) INFLUENZA VACCINE (#1) 2022 05/29/2017, 05/25/2017, 2016, Additional history exists COLONOSCOPY 01/02/2028 01/01/2018, 09/25/2007 COLORECTAL CANCER SCREENING 01/02/2028 Pneumococcal Vaccine: 65+ Completed 05/25/2017, 05/09/2016 Years IPV IMMUNIZATION Aged Out No longer eligi ble based on patient 's age to complete this topic MENINGITIS IMMUNIZATION Aged Out No longe r eligible based on patient 's age to complete this topic Medical Devices Implanted Type Area Snow Plow Tractor Operator Device Shelf Model / Identifier Expiration Serial / Date Lot Eye Imp Kit Lacrimal Intubation [place] [id number] Lens/Eye Right: Ey edil GILMANDMED 09/26/2019 [id number] / Implanted: Qty: 1 on 12/19/2016 by Sandra Cochran MD at [facility] Implant [id number] / Stent Ureteral Dbl Pigtail Inlay [id number] Left: Nickolas Ocasio BARD 12/24/2017 [id number] / Implanted: Qty: 1 on 08/04/2013 by Saurav Matthews MD at [facility] Ureter INC-UROLOGIC / [id number] Insurance Payer Benefit Plan / Subscriber ID Effective Phone Address T ype Group Dates MEDICARE MEDICARE FOR HB [id number] 2015-Pres [phone] ATTN CLAIMS Medicare SUPPLEMENT ent [address] [facility] [place] [address] BCBS BCBS JENA [id number] 2016-Prese [phone] [address] [address] PPO BLUE nt [address] [place] [address] Care Teams Drone Operator Relationship Specialty Start Date End Date Irma Chin, PCP - General Family Practice
--- OUTSIDE RECORDS SUMMARY | 2022-06-30 13:50 | XMS_ITS | Encounter Summary ---
:1950 Author Organization [facility] Address [address] [facility] [place] [address] Care Team Providers Name Role Phone Irma Chin MD Primary Care Provider Reason for Visit Auth/Cert Specialty Diagnoses / Procedures Referred By Contact Refer red To Contact Surgery Diagnoses RIGHT NASAL LACRIMAL DUCT OBSTRUCTION Sh Periop Servic es Procedures DACRYOCYSTORHINOSTOMY [address] [place] [address] Phone: Referral ID Status Reason Start Date Expiration Date Visits Requ ested Visits Authorized [id number] 1 1 Encounter Details Date Type Department Care Team Description 12/19/2016 Anesthesia Event [facility] Hollis Davidson MD [facility] [address] [place] [address] [place] [facility] KimberlyMargi khan, MERCHANDISE ADJUSTMENT CLERK MINGLER OPERATOR [address] [place] [id number] Services [address] [place] [address] Anesthesia Record Procedure Summary Procedure Name Responsible Anesthesia Start Anesthesia Stop Anesthesiologist Time Time RIGHT DACRYOCYSTORHINOSTOMY Hollis Davidson, 12/19/16 0724 12/19/16 0838 (Right: Eye) Events Date Time Event Comment 12/19/2016 0655 0724 An Start 0724 An Start Data 0724 Present 0728 An Induction 0730 An LMA 0731 Present 0743 AN INCISION 0831 LMA Removed 0832 MD Present 0834 an stop data 0838 An Stop Electronically s igned by Margi Harris on December 19, 2016 8:38 AM Name Total dexamethasone 4mg/mL 4 mg ePHEDrine 5 mg/mL 20 mg fentaNYL (SUBLIMAZE) injection 50 mcg lidocaine 2% 100 mg midazolam 1mg/mL 2 mg ondansetron 2mg/mL 4 mg phenylephrine (ALVIN-SYNEPHRINE) injection 1 mg 400 mcg propofol (DIPRIVAN) injection 10 mg/mL vial 200 mg propofol infusion (mcg/kg/min) 509.84 mg ceFAZolin vial 1 gm 2 g LR 1,300 mL Agents Name NO HELIOX O2 N2O Air Exp Sevoflurane Exp Isoflurane Exp Desflurane Exp N2O O2 Delivery Device Ins Sevoflurane Ins Isoflurane Ins Desflurane O2 Auxiliary Blood No blood administrations on file. Lines, Drains, and Airways Type Details Placement Removal Incision/Surgical Site 12/19/16; 0745; Face 12/19/16 0745 by Lexi Moy RN Peripheral IV 12/19/16; 0726; 20 G; 12/19/16 0726 by 12/19/16 1115 by Left; Hand; Alcohol; Margi Harris Elizabeth Injectable; Tolerated DougieSHANNA roy CRNA, RN well Retired Non-Surgical 12/19/16; 0730; Easy; 12/19/16 0730 by 11/26 01/10 0834 by Airway Intravenous; Easy; 4; Margi Harris om, Margi mm; laryngeal mask Dougie, MERCHANDISE ADJUSTMENT CLERK MINGLER OPERATOR SHANNA Constantino MINGLER OPERATOR airway; center of mouth; Equal, clear and bilateral; MINGLER OPERATOR; TS; Spontaneous ventilation, Adequate tidal volume, Purposeful movement documented in this encounter Social History Tobacco Use Types Packs/Day Years Used Date Smoking Tobacco: Never Alcohol Use Standard Drinks/Week Comments Yes 0 (1 standard drink = 0.6 oz pure alcoho l) Occas Sex Assigned at Date Recorded Not on file documented as of this encounter OR Notes Anesthesia Postprocedure Evaluation - Hollis Davidson MD - 12/19/2016 1:23 PM CDT Patient: Genoveva Bosch Procedure(s): RIGHT DACRYOCYSTORHINOSTOMY - Wound Class: I-Clean Diagnosis:RIGHT NASAL LACRIMAL DUCT OBSTRUCTION Diagnosis Additional Information: No value filed. Anesthesia Type: General Note: Anesthesia Post Evaluation Patient location during evaluation: PACU Patient participation: Able to fully participate in evaluation Level of consciousness: awake and alert Pain management: adequate Airway patency: patent Cardiovascular status: acceptable Respiratory status: acceptable Hydration status: acceptable PONV: none Anesthetic complications: None Last vitals: Vitals: 12/19/16 1000 12/19/16 1015 12/19/16 1115 BP: 94/58 110/67 Resp: 14 12 Temp: SpO2: 93% 92% 94% Electronically Signed By: Hollis Davidson MD December 19, 2016 1:23 PM Anesthesia Preprocedure Evaluation - Hollis Davidson MD - 12/19/2016 6:39 AM CDT Anesthesia Evaluation . Pt has had prior anesthetic. Type: General History of anesthetic complications - PONV and motion sickness ROS/MED HX ENT/Pulmonary: (-) tobacco use, asthma, COPD and sleep apnea Neurologic: Cardiovascular: (+) Dyslipidemia, hypertension----. : . . . :. . (-) CAD METS/Exercise Tolerance: Hematologic: Musculoskeletal: GI/Hepatic: (-) GERD and liver disease Renal/Genitourinary: (+) Nephrolithiasis , (-) renal disease Endo: (-) Type I DM and Type II DM Psychiatric: Infectious Disease: Malignancy: Other: Physical Exam Normal systems: cardiovascular, pulmonary and dental Airway Mallampati: III TM distance: >3 FB Neck ROM: full Dental Cardiovascular Pulmonary Anesthesia Plan History & Physical Review History and physical reviewed and following examination; no interval change. ASA Status: 2 . NPO Status: > 8 hours Plan for General with Intravenous induction. Maintenance will be TIVA. PONV prophylaxis: Ondansetron (or other 5HT-3) and Dexamethasone or Solumedrol Postoperative Care Postoperative pain management: Multi-modal analgesia. Consents Anesthetic plan, risks, benefits and alternatives discussed with: Patient.. . documented in this encounter Miscellaneous Notes Anesthesia Care Transfer Note - Margi Harris APRN MINGLER OPERATOR - 12/19/2016 8:38 AM CDT Patient: Genoveva Bosch Procedure(s): RIGHT DACRYOCYSTORHINOSTOMY - Wound Class: I-Clean Diagnosis: RIGHT NASAL LACRIMAL DUCT OBSTRUCTION Diagnosis Additional Information: No value filed. Anesthesia Type: General Note: Airway :Face Mask Patient transferred to:PACU Comments: Spontaneous respirations, airway patent, LMA removed atraumatically. Oxygen via face mask at 10 LPM to PACU, connected to wall O2 in PACU. All monitors and alarms on and functioning. Report given to MOTION PICTURE CAMERA OPERATOR and questions answered. Vitals: (Last set prior to Anesthesia Care Transfer) MINGLER OPERATOR VITALS 12/19/2016 0804 - 12/19/2016 0838 12/19/2016 NIBP: (!) 113/100 NIBP Mean: 106 Resp Rate (observed): (!) 1 Resp Rate (set): 10 Electronically Signed By: Margi Harris APRN CRNA December 19, 2016 8:38 AM documented in this encounter Plan of Treatment Not on filedocumented as of this encounter Visit Diagnoses Not on filedocumented in this encounter Administered Medications Inactive Administered Medications - up to 3 most recent administrations Medication Order MAR Action Action Date Dose Rate Site ceFAZolin (ANCEF) 1 g vial to attach Given 12/19/2016 7:39 AM CD T 2 g to NS 100 ml bag for ADULT or 50 ml bag for PEDS Routine, PRN, Starting on Sun12/19/16 at 0739, Anesthesia Intra-op dexamethasone (DECADRON) injection Given 12/19/2016 7:36 AM CDT 4 mg PRN, Administer over 1-4 Minutes, Starting on Sun12/19/16 at 0736, Anesthesia Intra-op ePHEDrine injection Given 12/19/2016 7:55 AM CDT 5 mg PRN, Starting on Sun12/19/16 at 0732, Anesthesia Intra-op Given 12/19/2016 7:41 AM CDT 5 mg Given 12/19/2016 7:35 AM CDT 5 mg fentaNYL Citrate (PF) (SUBLIMAZE) inject ion Given 12/19/2016 7:28 AM CDT 50 mcg PRN, moderate to severe pain, Starting on Sun12/19/16 at 0724, Anesthesia Intra-op lactated ringers infusion New Bag 12/19/2016 8:08 AM CDT Intravenous, CONTINUOUS PRN, Anesthesia Intra-op, Starting on Sun12/19/16 at 0726, Until Sun12/19/16 at 0838 New Bag 12/19/2016 7:26 AM CDT lidocaine injection 2% (MDV) Given 12/19/2016 7:28 AM CDT 100 mg PRN, Starting on Sun12/19/16 at 0724, Anesthesia Intra-op midazolam (VERSED) injection Given 12/19/2016 7:26 AM CDT 2 mg PRN, anxiety, Starting on Sun12/19/16 at 0726, Anesthesia Intra-op ondansetron (ZOFRAN) injection Given 12/19/2016 7:45 AM CDT 4 mg PRN, nausea, vomiting, Administer over 2-5 Minutes, Starting on Sun12/19/16 at 0745, Anesthesia Intra-op phenylephrine (ALVIN-SYNEPHRINE) injection 1 mg Bolus 12/19/2016 8:17 AM CDT 50 mcg 1 mg, CONTINUOUS PRN, Starting on Sun12/19/16 at 0732, Anesthesia Intra-op Bolus 12/19/2016 7:55 AM CDT 50 mcg Bolus 12/19/2016 7:41 AM CDT 100 mcg propofol (DIPRIVAN) infusion Rate/Dose 12/19/2016 8:07 80 mcg/kg/min 38.2 mL/hr Intravenous, CONTINUOUS PRN, Change AM CDT Starting on Sun12/19/16 at 0728, Anesthesia Intra-op Rate/Dose Change 12/19/2016 7:59 AM CDT 100 mcg/kg/min 47.8 mL/hr Rate/Dose Change 12/19/2016 7:46 AM CDT 110 mcg/kg/min 52.5 mL/hr propofol (DIPRIVAN) injection 10 mg/mL v ial Given 12/19/2016 7:28 AM CDT 200 mg PRN, Starting on Sun12/19/16 at 0715, Anesthesia Intra-op documented in this encounter Care Teams Transition Of Care Specialist Relationship Specialty Start Date End Date Irma Chin, PCP - General Family Practice documented as of this encounter
--- OUTSIDE RECORDS SUMMARY | 2022-06-30 13:50 | XMS_ITS | Encounter Summary ---
:1950 Author Organization [facility] Address [address] [place] [address] Care Team Providers Name Role Phone Irma Chin MD Primary Care Provider Reason for Visit Auth/Cert Specialty Diagnoses / Procedures Referred By Contact Refer red To Contact Gastroenterology Diagnoses personal history of polyps, family history of colon cancer Rh Endoscopy Procedures COLONOSCOPY [address] [place] [address] Phone: Fax: Referral ID Status Reason Start Date Expiration Date Visits Requ ested Visits Authorized [id number] 1 1 Encounter Details Date Type Department Care Team Description 01/01/2018 Surgery [facility] Faustina Mendez Colonoscop y with Endoscopy Pat Masters MD polypectomy by cold [address] COLON RECTAL snare [place], [place] [address] [address] [facility] [phone] [address] [place] [address] (Wo rk) Surgery Details Date/Time Status Location OR Service Patient Class Case Case Trauma Class Type Case? 01/01/18 9:15 Posted [facility] [place] AM Panel 1 Procedure [facility]RB Anes Op Region Wound Class Commen ts Colonoscopy with N/A Conscious Rectum II-Clean Colonosc opy with polypectomy by Sedation Contaminated polypect carole by cold snare cold snare Surgeon Surgeon Role Service Panel Faustina Mendez MD Primary [place] 1 documented in this encounter Social History Tobacco Use Types Packs/Day Years Used Date Smoking Tobacco: Never Smokeless Tobacco: Never Alcohol Use Standard Drinks/Week Comments Yes 0 (1 standard drink = 0.6 oz pure alcoho l) Occas Sex Assigned at Date Recorded Not on file documented as of this encounter Last Filed Vital Signs Vital Sign Reading Time Taken Comments Blood Pressure - - Pulse - - Temperature - - Respiratory Rate - - Oxygen Saturation - - Inhaled Oxygen Concentration - - Weight 72.6 [...] the chance of preventing its spread. ?? 4069-1323 Lilly Woodard, [address] [facility], [place] [address]. All rights reserved. This information is not [...] needed, you may be told to take skga-lyp-voaslld stool softeners. To help relieve pain, antispasmodic [...] the option of having surgery with you. [facility] Help keep your colon healthy with a diet that includes plenty of high-fiber fruits, vegetables, and whole grains. Drink plenty of liquids like water and juice. Your doctor may also recommend avoiding seeds and nuts. ?? 4624-3852 Lilly Woodard, [address] [place] [address], [place] [address]. All rights reserved. This information is not [...] grain cereal with bran (Chex, Raisin Bran, [place] Bran), oatmeal, rolled oats, granola,wheat flakes, brown [...] all kinds OTHER: Popcorn, any spices ?? 7187-0813 [facility], [address] [place] [address]. All rights reserved. This information is not [...] DACRYOCYSTORHINOSTOMY ; Surgeon: Sandra Cochran MD; Location: [facility] ??? GENITOURINARY SURGERY bladder repair, kidney stone ??? [facility] ??? LASER HOLMIUM LITHOTRIPSY URETER(S), INSERT [...] Component Value Ref Test Analysis Performed At [facility] [place] gist Range Method Time Signature Copath Report Patient Name: GENOVEVA BOSCH MR#: [id number] Specimen #: [id number] Collected: 01/01/2018 Received: 01/01/2018 Reported: 01/02/2018 14:31 [...] Microscopic examination is performed. CPT Codes: A: 26304-SF1 TESTING LAB LOCATION: [facility] [address] [place], [place] ??[address] COLLECTION SITE: Client: [facility] Location: RHENDO (R) Specimen (Source) Anatomical Collection Method Collection Time Re ceived Time Location / / Volume Laterality Polyp LARGE INTESTINE 01/01/2018 10:34 (morphologic PART / Unknown AM CDT abnormality) Faustina Mendez MD LAB - [facility] Performing Organization Address City/State/ZIP Code Phon e Number COPATH COLONOSCOPY (01/01/2018 10:04 AM CDT) [facility] [place] gist Method Time Signature COLONOSCOPY [facility] RAD IOLOGY RESULTS Patient Name: Genoveva Bosch ?Procedure D ate: 01/01/2018 10:04 AM ? Accou nt Number: [id number] Date of : 1950 ? Admit Type: [...] and ?oxygen saturations were monitored continuously. The ?[employer] Peds Colonoscope Model #PCF-H190L, ?[place]#139, SN#[id number] was introduced through the ?anus and advanced [...] Procedure Code(s): ? --- Professional --- ? 54838, Colonoscopy, flexible; with removal of tumor (s), polyp(s), or ? other lesion(s) by snare technique Diagnosis Code(s): ? --- Professional --- ? Z12.11, Encounter for screening for malignant neoplas m of colon ? D12.3, Benign neoplasm of transverse colo n (hepatic flexure or splenic ? flexure) ? K57.30, Diverticulosi s of large intestine without perforation or abscess ? without bleeding CPT copyright 2016 [employer]. All rights reserved. The codes documented in this report are prelimin maru and upon security system engineer review may be revised to meet current compliance requirements. Faustina Mendez MD 01/01/2018 10:49:10 AM I was physically present for the entire viewing portion of t he exam. Faustina Mendez MD Number of Addenda: 0 Note Initiated On: 01/01/2018 10:04 AM MRN: ?[id number] Procedure Date: ? 01/01/2018 10:04:55 AM Scope [...] D insertion or accessing implanted port., Starting e 01/01/18 at 1006, Do NOT give if [...] fluids infusing until discharge. CONTINUOUS PRN, Starting Sun01/01/18 at 1 049, Until Sun01/01/18 at 1319, Post-procedure midazolam (VERSED) injection 101 0 (Given - Provider: Eileen Colon RN - Comment: vorstar)1018 (Given - Provider: Eileen Colon RN - Comment: fredi) Administer over 2 Minutes, PRN, Starting e 01/01/18 at 1010, Int ra-procedure naloxone (NARCAN) injection 0.1-0.4 mg 0.1-0.4 mg, Intravenous, EVERY 2 MIN PRN , opioid reversal, Starting Sun01/01/18 at 1049, For 24 hours, For apnea [...]
Post-procedure documented in this encounter Care Teams Buckle Stapler Relationship Specialty Start Date End Date Irma Chin, PCP - General Family Practice documented as of this encounter
--- OUTSIDE RECORDS SUMMARY | 2022-06-30 13:50 | XMS_ITS | Encounter Summary ---
:1950 Author Organization [place] Address [address] [facility] [place] [address] Care Team Providers Name Role Phone Irma Chin MD Primary Care Provider Reason for Visit Auth/Cert Specialty Diagnoses / Procedures Referred By Contact Refer red To Contact Surgery Diagnoses RIGHT NASAL LACRIMAL DUCT OBSTRUCTION Sh Periop Servic es Procedures DACRYOCYSTORHINOSTOMY [address] [place] [phone] Phone: Referral ID Status Reason Start Date Expiration Date Visits Requ ested Visits Authorized [id number] 1 1 Encounter Details Date Type Department Care Team Description 12/19/2016 Surgery [facility] Sandra Cochran D ACRYOCYSTORHINOSTOMY Southda PeriOP MD [facility] [place] [facility] [address] PLASTIC SURGER [address] [place] [facility] [address] [id number] [place] [id number] (Wo rk) Surgery Details Date/Time Status Location OR Service Patient Case Case Traum a Class Class Type Case? 12/19/16 7:30 Posted Z SH SD SD 16 Ophthalmology Same Day AM Surgery Panel 1 Procedure LRB Anes Op Region Wound Comment s Class RIGHT Right General Eye I-Clean RIGHT DACRYOCYSTORHINOSTOMY DAC RYOCYSTORHINOSTOMY Surgeon Surgeon Role Service Panel Sandra Cochran MD Primary Ophthalmology 1 documented in this encounter Social History Tobacco Use Types Packs/Day Years Used Date Smoking Tobacco: Never Alcohol Use Standard Drinks/Week Comments Yes 0 (1 standard drink = 0.6 oz pure alcoho l) Occas Sex Assigned at Date Recorded Not on file documented as of this encounter Last Filed Vital Signs Vital Sign Reading Time Taken Comments Blood Pressure 110/67 12/19/2016 11:15 AM CDT Pulse - - Temperature 36.3 ??C (97.4 ??F) 12/19/2016 9:45 AM CDT Respiratory Rate 12 12/19/2016 11:15 AM CDT Oxygen Saturation 94% 12/19/2016 11:15 AM CDT Inhaled Oxygen Concentration - - Weight 79.6 kg (175 lb 9 oz) 12/19/2016 6:11 AM CDT Height 160 cm (5' 3) 12/19/2016 6:11 AM CDT Body Mass Index 31.1 12/19/2016 6:11 AM CDT documented in this encounter Discharge Instructions Discharge InstructionsMandie Stevenson RN - 12/19/2016 9:05 AM CDT Same Day Surgery Discharge Instructions for Sedation and General Anesthesia ?? It's not unusual to feel dizzy, light-headed or faint for up to 24 hours after surgery or while taking pain medication. If you have these symptoms: sit for a few minutes before standing and have someone assist you when you get up to walk or use the bathroom. ?? You should rest and relax for the next 24 hours. We recommend you make arrangements to have an adult stay with you for at least 24 hours after your discharge. Avoid hazardous and strenuous activity. ?? DO NOT DRIVE any vehicle or operate mechanical equipment for 24 hours following the end of your surgery. Even though you may feel normal, your reactions may be affected by the medication you have received. ?? Do not drink alcoholic beverages for 24 hours following surgery. ?? Slowly progress to your regular diet as you feel able. It's not unusual to feel nauseated and/or vomit after receiving anesthesia. If you develop these symptoms, drink clear liquids (apple juice, mikael ceci, broth, 7-up, etc. ) until you feel better. If your nausea and vomiting persists for 24 hours, please notify your surgeon. ?? All narcotic pain medications, along with inactivity and anesthesia, can cause constipation. Drinking plenty of liquids and increasing fiber intake will help. ?? For any questions of a medical nature, call your surgeon. ?? Do not make important decisions for 24 hours. ?? If you had general anesthesia, you may have a sore throat for a couple of days related to the breathing tube used during surgery. You may use Cepacol lozenges to help with this discomfort. If it worsens or if you develop a fever, contact your surgeon. ?? If you feel your pain is not well managed with the pain medications prescribed by your surgeon, please contact your surgeon's office to let them know so they can address your concerns. Dacryocystorhinostomy Discharge Instructions [employer] Dr. Sandra Cochran [address] [facility] [address] [place], [place] [address] Things to avoid: You should avoid blowing the nose forcefully or heavy sneezing while any tubing is in place to keep the tubes from coming loose or displacing. The inside of the nose should not be disturbed if at all possible. If you have any drying or discomfort following your DCR on the inside of the nose, it is okay to apply a small amount of Vaseline gently to the area. Additionally, saline nasal spray may be helpful. If you feel any stuffiness or congestion while any tubing is in place, we recommend nasal strips that can be bought at any drugstore and worn at night. You will see a tiny (1/4 inch) loop of the silicone tubing extruding from the corner of your operated eye(s). Be careful not to disturb this area. If the silicone tubing does dislodge and extend into the eye, tape the tube using medical adhesive, to the side of the nose. Call our office to set up an ap pointment to have the tube repositioned or removed. The rubber tube inside your nose should fall out on its own in about 4-6 weeks. If it does not, callthe office and the doctor can remove it in the office. If the tube loosens or falls out sooner, it is okay because this tube was in place only to add extra bulk while the natural passage is forming andwon???t severely affect the overall outcome of the surgery. Activity: Please avoid heavy lifting or strenuous exercise for seven days after surgery. You may resume regular activities as tolerated. Air travel should also be avoided during this period of time. You may carefully shower on the second day after surgery. At night, sleep with your head elevated on 2-3 pillows.Using ice packs will help reduce bruising and swelling. Continue this until the swelling subsides. Medication: If the doctor has given you some medications to take after surgery, please take these according to the instructions on the bottle. Pain medications may make you drowsy so do not drive, operate heavy machinery, or use alcohol while taking pain medications. If you were taking Aspirin prior to your surgery, you may resume this medication tomorrow. If you were taking Coumadin (warfarin) prior to your surgery, you may resume this medication with your next scheduled dose. Bleeding: After a DCR, it is normal to have some bloody discharge from the nose that may empty into the back of the throat. This will subside over the first one to two days after surgery. Please contact the doctor if there is excessive bleeding which does not respond to simple pressure on the nose. Questions: Please feel free to contact the office should any questions come up which are not answered above. The phone number is [phone]. documented in this encounter Medications at Time of Discharge Medication Sig Dispensed Refills Start Date End Date ASPIRIN PO Take 81 mg by 0 mouth daily HYDROCHLOROTHIAZIDE PO Take 25 mg by 0 mouth daily Losartan Potassium (COZAAR Take 50 mg by 0 PO) mouth daily multivitamin, therapeutic Take 1 tablet by 0 with minerals mouth daily (MULTI-VITAMIN) TABS erythromycin (ROMYCIN) Apply 1 2 Tube 1 12/19/2016 ophthalmic Application ointmentIndications: topically 3 times Nasolacrimal duct daily Apply thin obstruction, right ribbon to incision along right nasal bridge three times per day for 10 days HYDROcodone-acetaminophen Take 1 tablet by 20 tablet 0 11/2612/31/2017 (NORCO) 5-325 MG per mouth every 6 tabletIndications: hours as needed Nasolacrimal duct obstruction, right kiamaisj-zufmwahfy-rultnimh Place 1 drop into 1 Bottle 0 0 12/19/2016 12/31/2017 asone (MAXITROL) the right eye 3 [id number] SUSP times daily ophthalmic suspIndications: Nasolacrimal duct obstruction, right documented as of this encounter Nursing Notes Radha Joyner RN - 12/19/2016 10:28 AM CDT O2 sat running 88-94. Given an Incentive Spirometer and instructed on using it at home. Radha Joyner RN - 12/19/2016 10:27 AM CDT PNDS met, po per I&O sheet. Pt dressed, up in recliner and transported to Phase 2. documented in this encounter Miscellaneous Notes Op Note - Sandra Cochran MD - 12/19/2016 8:40 AM CDT Pre-operative Diagnosis: ?? 1. Right nasolacrimal duct obstruction ? Post-operative Diagnosis: Same as above ? Procedure(s): ?1. External dacryocystorhinostomy with stents, right side ? Surgeon: Sandra Cochran MD ? Anesthesia: General anesthesia with local anesthetic ? Blood loss: <5 cc ? Complications: None ? Specimens: None? Operative Procedure: Prior to bringing the patient to the operating room, the risks, benefits and alternatives to the procedure were discussed with the patient.? The patient's nose was packed with Afrin soaked neurosurgical cottonoids. A rogelio was made at the medial canthus extending from medial canthal tendon inferiorly toward the alaof the nose for 1.5 cm. Local anesthetic was injected (purulent drainage was noted from the lacrimalsac). The patient was prepped and draped in sterile fashion. ??A 15 blade was used to make an incision along the marking. Singleton scissors were then used to bluntly dissect to the underlying periosteum. 4-0 Silk sutures were then placed through the edges of the incision. Four sutures were placed around the incision. The freer periosteal elevator was then used to expose and make an incision through the periosteum. The periosteum was then elevated to the level of the anterior lacrimal crest. The lacrimal sac as then elevated from the lacrimal sac fossa. The posterior portion of the lacrimalsac fossa was identified where the thin bone resides. A Sierra sella punch was then used to remove the bone of the posterior lacrimal sac fossa. An adequate ostium was performed and the underlying nasal mucosa was identified. A Fanrock blade was then used to make an incision along the lacrimal sac with vertical anterior incisions superiorly and inferiorly. The inside of the lacrimal sac was then visualized. The Mclean probe was placed though the canalicular system and visualized. The posterior flap of the lacrimal sac was then constructed with Tamar scissors. The flaps for the nasal mucosa were then made with the blade. The anterior flapwas developed, and the posterior flap was then developed with the blade and Tamar scissors. A 5-0 vicryl suture on half manchester needle was then used to suture together the posterior flaps. The Mims stents were then placed through the system. This was retrieved from the nose in this case with a Mims hook. The other arm of the stent was placed and retrieved from the nose in the same fashion. The anterior flaps were then sutured together over the Mims stent with the same 5-0 vicryl suture on a half manchester needle. The skin incision was then closed with deep interrupted 5-0 Vicryl sutures placed in a buried fashion. Superficial sutures were then placed with the 6-0 fast absorbing gut suture in an interrupted fashion. The patient will use antibiotic ointment three times a day and the patient will return in one week for reevaluation. The patient was extubated and transferred to recovery in stable position. Sandra Cochran documented in this encounter Plan of Treatment Not on filedocumented as of this encounter Procedures Procedure Name Priority Date/Time Associated Diagnosis Comme nts DACRYOCYSTORHINOSTOMY 12/19/2016 7:24 AM RIGHT NASAL L ACRIMAL CDT DUCT OBSTRUCTION EKG CARDIAC - HIM SCAN 12/12/2016 12:00 AM CDT documented in this encounter Results EKG CARDIAC - HIM SCAN (12/12/2016 12:00 AM CDT) Specimen (Source) Anatomical Location Collection Method / Collectio n Time Received Time / Laterality Volume 12/12/2016 Narrative This result has an attachment that is no t available. Provider Outside ECG ORDERABLES documented in this encounter Visit Diagnoses Not on filedocumented in this encounter Administered Medications Inactive Administered Medications - up to 3 most recent administrations Medication Order MAR Action Action Date Dose Rate Site bupivacaine 0.5% w/EPI 20mL + Given 12/19/2016 7:35 AM CDT 3 mLs lidocaine 2% w/EPI 1:100,000 20mL PRN, Starting on Sun12/19/16 at 0735, Intra-procedure dimenhyDRINATE (DRAMAMINE) tablet 50 mg Given 12/19/2016 7:00 AM CDT 50 mg 50 mg, Oral, ONCE, On Sun12/19/16 at 0700, For 1 dose, Pre-procedure erythromycin (ROMYCIN) ophthalmic ointme nt Given 12/19/2016 7:36 AM CDT 1 g PRN, Starting on Sun12/19/16 at 0736, Intra-procedure fentaNYL Citrate (PF) (SUBLIMAZE) inject ion 25-50 mcg 25-50 mcg, Intravenous, EVERY 2 MIN PRN, other, acute pain while in PACU., Starting on Sun12/19/16 at 0840, MAX cumulative d ose = 250 mcg. Use Fentanyl initially, as a short acting agent for acute pain control. If insuffic ient, or a longer acting agent is needed, begin Morphine or Hydromorphone if or dered., PACU fentaNYL Citrate (PF) (SUBLIMAZE) inject ion 25-50 mcg 25-50 mcg, Intravenous, EVERY 15 MIN PRN, other, acute pain while in Phase II, Starting on Sun12/19/16 at 0840, MAX cumulative dose = 250 mcg. Use Fentanyl initially, as a short acting agent for a cute pain control. If insufficient, or a longer acting agent is needed, begin Mor phine or Hydromorphone if ordered., Phase ll HYDROcodone-acetaminophen (NORCO) 5-325 MG Given 12/19 9:38 AM CDT 1 tablet per tablet 1 tablet 1 tablet, Oral, ONCE, On Sun12/19/16 at 0945, For 1 dose, Maximum acetaminophen dose from all sources= 75 mg/kg/day not to exceed 4 grams, PACU/Phase II HYDROmorphone (PF) (DILAUDID) injection 0.3-0.5 mg 0.3-0.5 mg, Intravenous, EVERY 10 MIN WA N, other, acute pain.?May administer if Respiratory Rate is greater than 10, Sta rting on Sun12/19/16 at 0840, If fentanyl is also ordered, use HYDROmorphone if pa in control insufficient with fentanyl or a longer acting agent is needed. Max cumulative dose = 2 mg, PACU/Phase II lactated ringers infusion at 100 mL/hr, Intravenous, CONTINUOUS, Continue until IV catheter is weaned, PACU/Phase II, Starting on Sun12/19/16 at 0845, Until Sun12/19/16 at 1322 meperidine (DEMEROL) injection 12.5 mg 12.5 mg, Intravenous, EVERY 15 MIN PRN, post anesthesia shivering, Starting on Sun12/19/16 at 0840, For 2 doses, PACU/Phase II naloxone (NARCAN) injection 0.1-0.4 mg 0.1-0.4 mg, Intravenous, EVERY 2 MIN PRN , opioid reversal, Starting on Sun12/19/16 at 0840, For 24 hours, For apnea or imminent respirato ry arrest: give 0.4 mg IV undiluted Q 2 minutes PRN until desired degree of reversal is obtained, stop opioid and notify provider. Continue monitoring until dischar ge are criteria met for a minimum of 2 hours. For severe sedation, decrease in respiratory depth, quality or Respiratory Rate greater than 8: give 0. 1 mg IV Q 2 minutes x 3 doses, stop opioid and notify provider. Try to minimize reversal of analg esia especially in end-of-life patients. Continue monitorin g until discharge criteria are met for a minimum of 2 hours., PACU/Phase II ondansetron (ZOFRAN) injection 4 mg Given 12/19/2016 9:40 AM CDT 4 mg 4 mg, Intravenous, EVERY 30 MIN PRN, nausea, vomiting, Administer over 2-5 Minutes, Starting on Sun12/19/16 at 0840, For 2 doses, MAX total dose = 8 mg, including OR dosing. This is step 1 of the nausea and vomiting protocol. If not resolved in 15 minutes, then go to step 2 (Prochlorperazine if ordered). Irritant., PACU/Phase II ondansetron (ZOFRAN-ODT) ODT tab 4 mg 4 mg, Oral, EVERY 30 MIN PRN, nausea, vo miting, Starting on Sun12/19/16 at 0840, For 2 doses, MAX total dose = 8 mg, including OR dosin g. This is step 1 of the nausea and vomiting protocol. If not resolved in 15 mi nutes, then go to step 2 (Prochlorperazine if ordered)., PACU/Phase II ORAL Pain Medications - may administer a s ordered by surgeon for take home use CONTINUOUS PRN, Starting on Sun12/19/16 at 0840, Until Sun12/19/16 at 1322, May administer oral pain medications as ordered by surgeon for take home use. Discontinue IV pain medication prior to administration of oral pain medication., PACU/Phase II oxymetazoline (AFRIN) 0.05 % spray Given 12/19/2016 7:39 AM CDT 1 spray PRN, Starting on Sun12/19/16 at 0739, Intra-procedure prochlorperazine (COMPAZINE) injection 5 mg 5 mg, Intravenous, EVERY 6 HOURS PRN, na usea, vomiting, Starting on Sun12/19/16 at 0840, This is Step 2 of the nausea and v omiting protocol. If nausea not resolved in 15 minutes, give Metoclopramide if order ed (step 3 of nausea and vomiting protocol) , PACU/Phase II documented in this encounter Active and Recently Administered Medications Times are shown in CDT. Scheduled Medication Order 12/17/2016 12/18/2016 12/19/2016 dimenhyDRINATE (DRAMAMINE) tablet 50 mg (COMPLETED) 0700 (Given - Provider: Carmen Strong RN) 50 mg, Oral, ONCE, On Sun12/19/16 at 0700, For 1 dose, Pre-proce dure HYDROcodone-acetaminophen (NORCO) 5-325 MG per tablet 1 tablet ( COMPLETED) 0938 (Given - Provider: Radha Joyner RN) 1 tablet, Oral, ONCE, On Sun12/19/16 at 0945, For 1 dose, Maximum acetaminophen dose from all sources= 75 mg/kg/day not to exceed 4 grams, PACU/Phase II Continuous Medication Order 12/17/2016 12/18/2016 12/19/2016 lactated ringers infusion 0845 ( Canceled Entry - Provider: Orders Generic Provider - Comment: Automatically canceled at discontinue of medication order) at 100 mL/hr, Intravenous, CONTINUOUS, C ontinue until IV catheter is weaned, PACU/Phase II, Starting Sun12/19/16 at 0845, Until Sun12/19/16 at 1322 PRN Medication Order 12/17/2016 12/18/2016 12/19/2016 bupivacaine 0.5% w/EPI 20mL + lidocaine 2% w/EPI 1:100,000 20mL (CANCELED) 0735 (Given - Provider: Sandra Cochran MD) PRN, Starting Sun12/19/16 at 0735, Intra-procedure erythromycin (ROMYCIN) ophthalmic ointment (CANCELED) 0736 (Given - Provider: Sandra Cochran MD) PRN, Starting e 12/19/16 at 0736, Intra-procedure fentaNYL Citrate (PF) (SUBLIMAZE) injection 25-50 mcg 25-50 mcg, Intravenous, EVERY 2 MIN PRN, Starting e 12/19/16 at 0840, other, acute pain while in PACU., MAX cumulative dose = 250 mcg. Use Fentanyl initially, as a short acting agent for acute pain con trol. If insufficient, or a longer actin g agent is needed, begin Morphine or Hydromorphone if ordered., PACU fentaNYL Citrate (PF) (SUBLIMAZE) injection 25-50 mcg 25-50 mcg, Intravenous, EVERY 15 MIN PRN , Starting e 12/19/16 at 0840, other, acute pain while in Phase II, MAX cumulative dose = 250 mcg. Use Fentanyl initially, as a short acting agent for acute pain control. If insufficient, or a longer a cting agent is needed, begin Morphine or Hydromorphone if ordered., Phase ll HYDROmorphone (PF) (DILAUDID) injection 0.3-0.5 mg 0.3-0.5 mg, Intravenous, EVERY 10 MIN WA N, Starting 12/19/16 at 0840, Until 12/19/16 at 1322, other, acute pain.?May administer if Respiratory Rate is greater than 10, PACU/Phase II, If fentany l is also ordered, use HYDROmorphone if pain control insufficient with fentanyl or a longer acting agent is needed. Max cumulative dose = 2 mg meperidine (DEMEROL) injection 12.5 mg 12.5 mg, Intravenous, EVERY 15 MIN PRN, 2 doses, Starting 12/19/16 at 0840, Until 12/19/16 at 1322, post anesthesia shivering, PACU/Phase II naloxone (NARCAN) injection 0.1-0.4 mg 0.1-0.4 mg, Intravenous, EVERY 2 MIN PRN , opioid reversal, Starting e 12/19/16 at 0840, For 24 hours, For apnea or imminent respiratory arrest: give 0.4 mg IV undiluted Q 2 minutes PRN until desired de gree of reversal is obtained, stop opioi d and notify provider. Continue monitoring until discharge are criteria met for a minimum of 2 hours. For severe sedation, decrease in respiratory depth, quality or Respiratory Rate greater than 8: give 0.1 mg IV Q 2 minutes x 3 doses, stop opioid and notify provider. Try to minimize reversal of analgesia especially in end-of-life patients. Continue monitoring u ntil discharge criteria are met for a minimum of 2 hours., PACU/ Phase II ondansetron (ZOFRAN) injection 4 mg(Linked Group 1) 0940 (Given - Provider: Radha Joyner RN) 4 mg, Intravenous, EVERY 30 MIN PRN, steven sea, vomiting, Administer over 2-5 Minutes, Starting e 12/19/16 at 0840, For 2 doses, MAX total dose = 8 mg, including OR dosing. This is step 1 of the nausea an d vomiting protocol. If not resolved in 15 minutes, then go to step 2 (Prochlorperazine if ordered). Irritant., PACU/Phase II ondansetron (ZOFRAN-ODT) ODT tab 4 mg(Linked Group 1) 0940 (See Alternative - Provider: Radha Joyner RN) 4 mg, Oral, EVERY 30 MIN PRN, nausea, vo miting, Starting 12/19/16 at 0840, For 2 doses, MAX total dose = 8 mg, including OR dosing. This is step 1 of the nausea and vomiting protocol. If not resolved in 15 minutes, then go to step 2 (Prochlorperazine if ordered)., PACU/Phase II ORAL Pain Medications - may administer as ordered by surgeon for take home use CONTINUOUS PRN, Starting 12/19/16 at 0840, Until 12/19/16 at 1322, May administer oral pain medications as ordered by surgeon for take home use. Discontinue IV pain medication prior to administration of oral pain medication., PACU/Phase II oxymetazoline (AFRIN) 0.05 % spray (CANCELED) 0739 (Given - Provider: Sandra Cochran MD) PRN, Starting 12/19/16 at 0739, Intra-procedure prochlorperazine (COMPAZINE) injection 5 mg 5 mg, Intravenous, EVERY 6 HOURS PRN, na usea, vomiting, Starting 12/19/16 at 0840, This is Step 2 of the nausea and vomiting protocol. If nausea not resolved in 15 minutes, give Metoclopramide if ord ered (step 3 of nausea and vomiting protocol) , PACU/Phase II Linked Groups Order Group 1: ondansetron (ZOFRAN-ODT) ODT tab 4 mgJump to med 4 mg, Oral, EVERY 30 MIN PRN, nausea, vo miting, Starting 12/19/16 at 0840, For 2 doses
MAX total dose = 8 mg, including OR dosing. This is step 1 of the nausea and vomiting protocol.&nbs p; If not resolved in 15 minutes, t hen go to step 2 (Prochlorperazine if ordered).
PACU/Phase II Or ondansetron (ZOFRAN) injection 4 mgJump to med 4 mg, Intravenous, EVERY 30 MIN PRN, steven sea, vomiting, Administer over 2-5 Minutes, Starting 12/19/16 at 0840, For 2 doses
MAX total dose = 8 mg, including OR dosing. This is step 1 of the n ausea and vomiting protocol. If not resolved in 15 minutes, then go to step 2 (Prochlorperazine if ordered). Irritant.
PACU/Phase II documented in this encounter Care Teams Security Systems Engineer Relationship Specialty Start Date End Date Irma Chin, PCP - General Family Practice documented as of this encounter
--- OUTSIDE RECORDS SUMMARY | 2022-06-30 13:51 | XMS_ITS | Encounter Summary ---
:1950 Author Organization [place] Address [address] [facility] [place] [address] Care Team Providers Name Role Phone Yolanda Stephenson Primary Care Provider Reason for Visit Auth/Cert - Closed Specialty Diagnoses / Procedures Referred By Contact Refer red To Contact Surgery Diagnoses LEFT URETERAL STONE Sh Periop Services Procedures COMBINED CYSTOSCOPY, URETEROSCOPY, LASER HOLMIUM LITHOTRIPSY URETER(S), INSERT STENT COMBINED CYSTOSCOPY, RETROGRADES [address] [place] [address] Phone: Referral ID Status Reason Start Date Expiration Date Visits Requ ested Visits Authorized [id number] Closed 1 1 Encounter Details Date Type Department Care Team Description 08/04/2013 Surgery [facility] Pari Cast CYSTOS COPY, LEFT [place] [facility] Devang RETROGRADES, LEFT Services [facility] URETEROSCOPY, LEFT [id number]ACEMENT, [place] [address] [place] [address] extraction [phone] (Wo rk) Surgery Details Date/Time Status Location OR Service Patient Case Case Traum a Class Class Type Case? 08/04/13 12:10 Posted SH OR OR M Laser Same Day PM 18 Urology Surgery Panel 1 Procedure LRB Anes Op Region Wound Class Commen ts CYSTOSCOPY, LEFT Left General Urethra II-Clean Contaminat ed CYSTOSCOPY, LEFT RETROGRADES, LEFT RETROGR ADES, LEFT URETEROSCOPY, LEFT URETER OSCOPY, LEFT DOUBLE J STENT DOUBLE J S TENT PLACEMENT, stone PLACEMEN T, stone extraction extraction Panel 2 Procedure LRB Anes Op Region Wound Class Commen ts CYSTOSCOPY, WITH RETROGRADE Left General Urethra II-Clean Contaminated PYELOGRAM Surgeon Surgeon Role Service Panel Pari Cast MD Primary Laser Urology 1 Pari Csat MD Primary Urology 2 documented in this encounter Social History Tobacco Use Types Packs/Day Years Used Date Smoking Tobacco: Never Alcohol Use Standard Drinks/Week Comments Yes 0 (1 standard drink = 0.6 oz pure alcoho l) Occas Sex Assigned at Date Recorded Not on file documented as of this encounter Last Filed Vital Signs Vital Sign Reading Time Taken Comments Blood Pressure 136/67 08/04/2013 11:58 AM STRETCHING PRESS OPERATOR Pulse - - Temperature 35.8 ??C (96.5 ??F) 08/04/2013 11:58 AM STRETCHING PRESS OPERATOR Respiratory Rate 16 08/04/2013 11:58 AM STRETCHING PRESS OPERATOR Oxygen Saturation 97% 08/04/2013 11:58 AM STRETCHING PRESS OPERATOR Inhaled Oxygen Concentration - - Weight 78.2 kg (172 lb 4.8 oz) 08/04/2013 11:58 AM STRETCHING PRESS OPERATOR Height 160 cm (5' 3) 08/04/2013 11:58 AM STRETCHING PRESS OPERATOR Body Mass Index 30.52 08/04/2013 11:58 AM STRETCHING PRESS OPERATOR documented in this encounter Discharge Instructions Discharge InstructionsRenee White RN - 08/04/2013 2:15 PM CST Same Day Surgery Discharge Instructions For Sedation and General Anesthesia 1. It is not unusual to feel dizzy, light-headed, or faint, up to 24 hours after surgery or while taking pain medication. If you have these symptoms; sit for a few minutes before standing and have someone assist you when you get up to walk or use bathroom. 2. You should rest and relax for the next 24 hours and must make arrangements to have someone stay with you for at least 24 hours after your discharge. Avoid hazardous and strenuous activities. 3. DO NOT DRIVE any vehicle or operate mechanical equipment for 24 hours following the end of your surgery. Even though you feel normal, your reactions may be affected by the medication you have received. 4. Do not drink alcoholic beverages for 24 hours following your surgery. 5. It is not unusual to feel nauseated and/or vomit after receiving anesthesia. If you develop thesesymptoms, drink clear liquids (apple juice, mikael ceci, broth, 7-up etc.) until you feel better. Slowly progress to your regular diet as you feel able. If your nausea and vomiting persists for 24 hours, please notify your surgeon. 6. All narcotic pain medications, along with inactivity and anesthesia, can cause constipation. Drinking plenty of liquids and increasing fiber intake will help. 7. Any questions of a medical nature, call your physician. 8. Do not make important decisions for 24 hours. 9. You may have a sore throat for a couple of days related to the breathing tube used during surgery. You may use Cepacol lozenges to help with this discomfort. If it worsens or if you develop a fever, contact your surgeon. Cystoscopy and Stent Placement Discharge Instructions Diet: Return to the diet that you were on before the procedure, unless you are given specific diet instructions. It is important to drink 6-8 glasses of fluids per day at home - at least 3-4 glasses should be water. Activity: Walk short distances and increase as your strength allows. You may climb stairs. Do not do strenuous exercise or heavy lifting until approved by surgeon. Do not drive while taking narcotic pain medications. Bathing: You may take a shower. While the stent is in place you may experience the following symptoms: Blood and/or small blood clots in urine. Bladder spasm (frequency and urgency of urination). Discomfort or aching in the back or side where the stent is. Burning or discomfort at the end of urine stream. To decrease these symptoms you should: Take pain medication as prescribed. Drink plenty of fluids. If you experience pain at the end of urination try not emptying your bladder completely. If having discomfort in back or side, decrease activity. Call your physician if these signs/symptoms are present: Pain that is not relieved by a short rest or ordered pain medications. Temperature at or above 101.0??F or chills. Inability or difficulty urinating. Excessive blood in urine. Any questions or concerns. During surgery, a stent was placed in the ureter. The ureter is the tube that drains urine from the kidney to the bladder. The stent is placed to dilate (open) the ureter so the stone fragments can pass easily through the ureter or to decrease ureteral swelling after surgery, or to relieve an obstruction. The stent is made of rubber. The upper end of the stent curls in the kidney while the lower end rests in the bladder. TCHING PRESS OPERATOR documented in this encounter Medications at Time of Discharge Medication Sig Dispensed Refills Start Date End Date ASPIRIN PO Take 81 mg by mouth 0 daily multivitamin, therapeutic Take 1 tablet by 0 with minerals mouth daily (MULTI-VITAMIN) TABS cefUROXime (CEFTIN) 500 Take 1 tablet (500 20 tablet 0 04/201312/19/2016 MG tabletIndications: mg) by mouth 2 times Ureteral stone daily HYDROcodone-acetaminophen Take 1 tablet by 40 tablet 0 04/201312/19/2016 (NORCO) 5-325 MG per mouth every 6 hours tabletIndications: as needed for pain Ureteral stone HydrOXYzine Pamoate Take 25 mg by mouth 0 12/19/2016 (VISTARIL PO) every 6 hours as needed losartan-hydrochlorothiaz Take 1 tablet by 0 12/19/2016 flor (HYZAAR) 50-12.5 MG mouth daily per tablet [place]-3 Fatty Acids Take 300 mg by mouth 0 12/19/2016 (OMEGA-3 FISH OIL PO) daily oxyCODONE-acetaminophen Take 1-2 tablets by 0 12/19/2016 (PERCOCET) 5-325 MG per mouth every 4 hours tablet as needed documented as of this encounter Progress Notes Christine Carey-Provider - 08/14/2013 3:24 PM CST TCHING PRESS OPERATOR Aurelio Provider - 08/07/2013 10:22 AM CST TCHING PRESS OPERATOR documented in this encounter H&P Notes Tashia Carey - 08/04/2013 6:27 AM CST TCHING PRESS OPERATOR documented in this encounter Nursing Notes Violetta Hernandez - 08/04/2013 3:30 PM CST Pt is unable to void on bedpan. BLadder scanned: volume 559ml. Pt ambulated with assist to restroom,voided a little. Pt returned to bay, bladder scanned again, now 253ml. Pt states urge to urinate is resolved. Denies pain. TCHING PRESS OPERATOR Renee White RN - 08/04/2013 2:21 PM CST Assumed cares while primary nurse went on lunch break from 1408 to 1440. TCHING PRESS OPERATOR documented in this encounter Miscellaneous Notes Op Note - Pari Cast MD - 08/04/2013 5:04 PM CST SURGEON: Pari Cast MD INDICATIONS FOR PROCEDURE: Genoveva Arteaga is a 63-year-old lady who has been evaluated as an outpatient, and she was found to have a distal left ureteral stone with hydronephrosis. She continued to have hydronephrosis despite conservative management, with follow-up renal ultrasounds demonstrating hydro nephrosis. She has a known distal left ureteral stone. The risks and benefits and expected outcomes of the procedure were discussed with the patient. The patient wished to proceed and signed consent. PREOPERATIVE DIAGNOSIS: Left ureteral stone. POSTOPERATIVE DIAGNOSIS: Left ureteral stone. PROCEDURE PERFORMED: Cystoscopy, left retrograde pyelogram, left ureteroscopy with stone extraction,left double-J stent. ANESTHESIA: General. COMPLICATIONS: None. FINDINGS: There is a stone which was removed from the ureter and was noted to migrate up to the proximal ureter. A stent was placed after the stone was removed. This was 6 x 26. This stent will be removed at a later date in the office via cystoscopy. DRAINS: Double-J stent, 6 x 26. Please see nurses note. OPERATIVE PROCEDURE: After proper identification of the patient, the patient was taken to the operating room and placed supine on the operating room table. Next, after adequate anesthesia, the patient was prepped and draped in standard fashion in dorsal lithotomy position. A cystoscopy demonstrated noevidence of tumor mass or stone. There was no evidence of urethral pathology. The left ureteral orifice was intubated with an open-ended ureteral catheter. Retrograde pyelograms were performed, demonstrating a filling defect in the distal ureter. A 0.035 Super Stiff wire was placed up to the left collecting system, and then semirigid ureteroscopy was performed, demonstrating this was in the ureter, de monstrating no evidence of stone in the distal ureter; however, in the proximal ureter there was noted to be a stone. The wire which had been placed was only noted to be able to be placed to the proximal ureter. Therefore, a second wire was placed through the ureteroscope and coiled into the left renal pelvis as noted by fluoroscopy. The ureteroscope was removed, and then the ureteroscope was replaced and then placed into the ureter. Direct vision of the entire ureter was performed, and the stone which had been noted close to the UPJ was noted to fragment. The scope was able to be placed into the renal pelvis. There were no stones noted there. Then a 0 tipped nitinol basket was placed and then opened, and then the scope was pulled out of the renal pelvis, down the ureter, noting a stone, and thiswas then grasped and removed in its entirety. This was the stone that was thought to cause the hydronephrosis. The wire which was in place was then backloaded onto the cystoscope, and then a 6 x 26 double-J stent was placed with a good coil in the collecting system and good coil in the bladder. The bj dder was emptied. The patient received perioperative antibiotics. She also received a B&O suppository. She was taken to the recovery room in stable condition. The stent which was placed today will be removed at a later date in the office via cystoscopy. PARI CAST MD MT: [id number] Name: GENOVEVA ARTEAGA MRN: [id number] Account: [id number] : 1950 Procedure Date: 08/04/2013 Document: [id number] TCHING PRESS OPERATOR Brief Op Note - Pari Cast MD - 08/04/2013 1:58 PM CST [facility] Brief Operative Note Pre-operative diagnosis: LEFT URETERAL STONE Post-operative diagnosis Same Procedure: Procedure(s) with comments: COMBINED CYSTOSCOPY, URETEROSCOPY, LASER HOLMIUM LITHOTRIPSY URETER(S), INSERT STENT - CYSTOSCOPY, LEFT RETROGRADES, LEFT URETEROSCOPY, LEFT DOUBLE J STENT PLACEMENT, stone extraction COMBINED CYSTOSCOPY, RETROGRADES Surgeon(s): Surgeon(s) and Role: Panel 1: Pari Cast MD - Primary Panel 2: Pari Cast MD - Primary Estimated blood loss: 0cc Specimens: ID Type Source Tests Collected by Time Destination A : left ureteral stone Calculus/Stone STONE ANALYSIS Pari Cast MD 08/04/2013 1:52 PM Pathology Findings: Left Ureteral stone removed-stent will be removed as out pt in office Pari Cast MD,M.D. F.A.C.S. TCHING PRESS OPERATOR documented in this encounter Plan of Treatment Not on filedocumented as of this encounter Procedures Procedure Name Priority Date/Time Associated Comments Diagnosis XR PYELOGRAM RETRO Routine 08/04/2013 2:00 PM Res ults for this SURGERY G/E 1 FILMS STRETCHING PRESS OPERATOR procedur e are in the results section. SURGICAL PATHOLOGY Routine 08/04/2013 1:52 PM Res ults for this EXAM STRETCHING PRESS OPERATOR procedure are i n the results section. STONE ANALYSIS Routine 08/04/2013 1:52 PM Results for this STRETCHING PRESS OPERATOR procedure are i n the results section. CYSTOSCOPY, WITH 08/04/2013 12:43 LEFT URETERAL STONE RETROGRADE PYELOGRAM PM STRETCHING PRESS OPERATOR CYSTOURETEROSCOPY, 08/04/2013 12:43 LEFT URETERAL STON E WITH LITHOTRIPSY PM STRETCHING PRESS OPERATOR USING LASER AND URETERAL STENT INSERTION documented in this encounter Results XR Pyelogram Retro Surgery G/E 1 Films (08/04/2013 2:00 PM STRETCHING PRESS OPERATOR) Anatomical Region Laterality Modality Abdomen/Pelvis Computed Radiography Specimen (Source) Anatomical Location Collection Method / Collectio n Time Received Time / Laterality Volume Impressions 08/05/2013 2:17 PM STRETCHING PRESS OPERATOR IMPRESSION: Four images obtained during placement of double-J stent from the left renal pelvis to the urinar y bladder. SCARLETT BHATT MD Narrative 08/05/2013 2:17 PM STRETCHING PRESS OPERATOR RETROGRADE PYELOGRAM ??08/04/2013 2:00 PM HISTORY: ??Left retrograde, left uretera l stone. COMPARISON: None. Procedure Note Scarlett Bhatt MD - 08/05/2013Formatt ing of this note might be different from the original. RETROGRADE PYELOGRAM 08/04/2013 2:00 PM HISTORY: Left retrograde, left ureteral stone. COMPARISON: None. IMPRESSION IMPRESSION: Four images obtained during placement of double-J stent from the left renal pelvis to the urinar y bladder. SCARLETT BHATT MD Pari Cast MD IMG DIAGNOSTIC IMAGING ORDER BENEDICTO Surgical pathology exam (08/04/2013 1:52 PM STRETCHING PRESS OPERATOR) Component Value Ref Test Analysis Performed At [facility] Range Method Time Signature Copath Report Patient Name: GENOVEVA ARTEAGA MR#: [id number] Specimen #: [id number] Collected: 08/04/2013 Received: 08/05/2013 Reported: 08/05/2013 14:59 Ordering Phy(s): PARI CAST SPECIMEN(S): Stone, left ureteral FINAL DIAGNOSIS: Left ureter, stone - Calculus (see separate report for chemi patricia analysis). Electronically signed out by: Smooth Lainez M.D. CLINICAL HISTORY: Left ureteral stone. GROSS: The specimen is labeled left ureteral stone. ??The specime n consists of a bosch hard stone measuring up to 0.1 cm. ??The specimen is s ent out to a reference lab for calculus (stone) analysis. ??Gross only. SD ??TRS/tw 08/05/2013 TESTING LAB LOCATION: [address] ??[address] COLLECTION SITE: Client: [facility] Location: [facility] (S) Specimen Anatomical Collection Method Collection Time Receive d Time (Source) Location / / Volume Laterality 08/04/2013 1:52 PM 3 9:04 STRETCHING PRESS OPERATOR AM STRETCHING PRESS OPERATOR Pari WADDELL - JULIAN HOLLAND Performing Organization Address City/State/ZIP Code Phon e Number [place] Stone analysis (08/04/2013 1:52 PM STRETCHING PRESS OPERATOR) Component Value Ref Test Analysis Performed At [facility] gist Range Method Time Signature Stone SEE NOTE [place] Composition (Note) [facility] Calculi composed primarily of: HOSPITAL LAB 40% calcium oxalate monohydrate, and 60% calcium oxalate dihydrate. INTERPRETIVE INFORMATION: Calculi (Stone) analysis Calculi are the products of physiological processes that yield crystalline compounds in a matrix of biological compounds and blood. ??Matrix components are not reported. The clinically significant crystalline components identified in calculi specimens are reported. ??Gross description may not be consistent with composition determined by FTIR analysis. Performed by [facility], [address] [place] [id number] [email or web address], Jasbir Irby MD, Lab. Director Calculi Number Not Applicable [facility] Calculi Size Not Applicable [place] Unit: mm [facility] Calculi Not Applicable [place] Description [facility] Stone Mass SEE NOTE mg [place] (Note) [facility] Sample mass < 2 mg. Accurate measurement of weight, size, HOSPITAL LAB number and description of the sample cannot be determined. Specimen Anatomical Collection Method Collection Time Receive d Time (Source) Location / / Volume Laterality 08/04/2013 1:52 PM 3 9:04 STRETCHING PRESS OPERATOR AM STRETCHING PRESS OPERATOR Pari Devang Cast MD LAB - BODY FLUIDS ORDERABLES Performing Organization Address City/State/ZIP Code [facility] e Number M [facility] [address] [place] [address] [phone] [facility] documented in this encounter Visit Diagnoses Not on filedocumented in this encounter Administered Medications Inactive Administered Medications - up to 3 most recent administrations Medication Order MAR Action Action Date Dose Rate Site opium-belladonna (B&O Given 08/04/2013 1:55 PM 30 mg Other (see SUPPRETTES) 60-16.2 MG STRETCHING PRESS OPERATOR co mments) suppository PRN, moderate pain, Starting on 08/04/13 at 1355, Intra-procedure sterile water (bottle) irrigation Given 08/04/2013 1:27 PM STRETCHING PRESS OPERATOR 1,000 mLs PRN, Intra-procedure, Starting on Sun08/04/13 at 1327, Until Sun08/04/13 at 1843 sterile water irrigation (bag) Given 08/04/2013 1:27 PM STRETCHING PRESS OPERATOR 3,000 mLs PRN, Intra-procedure, Starting on 08/04/13 at 1327, Until 08/04/13 at 1843 documented in this encounter Active and Recently Administered Medications Times are shown in STRETCHING PRESS OPERATOR. Scheduled Medication Order 08/02/2013 08/03/2013 08/04/2013 ciprofloxacin (CIPRO) 400 mg in dextrose 5% 200 mL IVPB (COMPLET ED) 1315 (Given - Provider: Radha Joya, AGENCY MANAGER TOWER WATCHMAN) 400 mg, Intravenous, PRE-OP/PRE-PROCEDUR E, For 1 dose, Indications: Surgical Prophylaxis, Pre-procedure PRN Medication Order 08/02/2013 08/03/2013 08/04/2013 opium-belladonna (B&O SUPPRETTES) 60-16.2 MG suppository (CANCEL ED) 1355 (Given - Provider: Pari Cast MD) PRN, Starting 08/04/13 at 1355, moderate pain, Intra-procedur e sterile water (bottle) irrigation (CANCELED) 1327 (Given - Provider: Pari Cast MD) PRN, Intra-procedure sterile water irrigation (bag) (CANCELED) 1327 (Given - Provider: Pari Cast MD) PRN, Intra-procedure documented in this encounter Care Teams Laminated Plastics Assembler And Gluer Relationship Specialty Start Date End Date Yolanda Stephenson PCP - General Family Practice 07/30/13 11/22/[address] [facility] [address] [place] [address] documented as of this encounter
--- OUTSIDE RECORDS SUMMARY | 2022-06-30 13:51 | XMS_ITS | Encounter Summary ---
:1950 Author Organization [place] Address [address] [facility] [place] [address] Care Team Providers Name Role Phone Unavailable Primary Care Provider Unavailable Encounter Details Date Type Department Care Team Description 09/25/2007 GI Procedure [facility] Endoscopy Michael Lyon None Gianna [address] [place] [phone] Social History Tobacco Use Types Packs/Day Years Used Date Smoking Tobacco: Never Assessed Sex Assigned at Date Recorded Not on file documented as of this encounter Plan of Treatment Not on filedocumented as of this encounter Procedures Procedure Name Priority Date/Time Associated Diagnosis Comme nts COLONOSCOPY Routine 09/25/2007 10:40 AM Results for this RESIZER OPERATOR procedure are i n the results section . documented in this encounter Results COLONOSCOPY (09/25/2007 10:40 AM RESIZER OPERATOR) [facility] Method Time Signature COLONOSCOPY [facility] RADIOLOGY [facility] Endoscopy Department RESULTS Patient Name: Genoveva Bosch ? Gender: F ? Procedure Date: 09/25/2007 10 :40 AM ? Date of : 1950 ? Age: 57 ? Admit Type: Outpatient ?Room: 3 ? Note Status: Finalized ? Attending MD: Svitlana Negron MD ?Pause For The Cause: Pause for the cause Procedure: ? Colonoscopy Indications: ? High risk colon CA scre ening: Colon cancer in mother ? before age 60, Colon cancer in father before age 60, ? paternal uncle and paternal grandmother. Two of her ? siblings have had colon polyp s. Providers: ? Svitlana Negron MD, Tri Bettencourt, RN Referring MD: ?Michael Lyon MD Medicines: ? Fentanyl 100 micrograms IV, Midazo aguirre 4 mg IV Complications: ? No immediate complications Procedure: ? - Prior to the procedure, a History and Physical was ? performed, and patient medication allergies were ? reviewed. The patient is competent. The risks and ? benefits of the procedure and the sedation options and ? risks were discussed with the patient. All questions ? were answered and informed consent was obtained. Patient ? identification and proposed procedure were verified by ? the physician and the nurse in the endoscopy suite. ? Mental Status Examination: alert and oriented. Airway ? Examination: normal oropharyngeal airway and neck ? mobility. Respiratory Examina tion: clear to ? auscultation. CV Examination: normal. Prophylactic ? Antibiotics: The patient does not require prophylactic ? antibiotics. Prior Anticoagulants: The patient has taken ? no previous anticoagulant or antiplatelet agents. ASA ? Grade Assessment: II - A patient with mild systemic ? disease. After reviewing the risks and benefits, the ? patient was deemed in satisfactory condition to undergo ? the procedure. The anesthesia plan was to use moderate ? sedation / analgesia (conscious sedation). Immediately ? prior to administration of medications, the patient was ? re-assessed for adequacy to receive sedatives. The heart ? rate, respiratory rate, oxygen saturations, blood ? pressure, adequacy of pulmonary ventilation, and ? response to care were monitored throughout the ? procedure. The physical status of the patient was ? re-assessed after the procedu re. ? After obtaining informed consent, the colonoscope was ? passed under direct vision. Throughout the procedure, ? the patie nt's blood pressure, pulse, and oxygen ? saturations were monitored continuously. The ? [facility]-[id number] was introduced through the anus ? and advanced to the cecum, identified by appendiceal ? orifice & IC valve. The quality of the prep was ? excellent. The prep was adequate to identify polyps. ? Findings: ? The perianal exam revealed a small external hemorrhoi d. The entire ? examined colon appeared normal. ? Impression: ?- Small external hemorrhoids. ? - The colon is normal. Recommendation: ?- High fiber diet. ? - Return to endoscopist in 3 years. ? Dez Negron M.D. Svitlana Negron MD Signed Date: 09/25/2007 11:16 AM Number of Addenda: 0 I was physically present for the entire viewing portion of t lowell exam. Note initiated on 09/25/2007 10:41 AM COLONOSCOPY RADIOLOGY RESULTS Specimen (Source) Anatomical Collection Method Collection Time Re ceived Time Location / / Volume Laterality 09/25/2007 10:40 AM RESIZER OPERATOR Michael Lyon PROCEDURES Performing Organization Address City/State/ZIP Code Phon e Number RADIOLOGY RESULTS documented in this encounter Visit Diagnoses Not on filedocumented in this encounter
--- OUTSIDE RECORDS SUMMARY | 2022-06-30 13:51 | XMS_ITS | Clinical Summary ---
:1950 Author Organization [facility] [place] [address] Care Team Providers Name Role Phone Marisa Kovacs MD Primary Care Provider [phone] Allergies Active Allergy Reactions Severity Noted Date Comments Lisinopril Cough 05/01/2007 intol cough Medications Medication Sig Dispensed Refills Start Date End Date Status multivitamin (MVI) tablet Take 1 tablet 0 03/20/2011 Active by mouth once daily. hydroCHLOROthiazide (HCTZ) Take 1 Tablet 90 tablet. 4 07/07/20 Active 25 mg tabletIndications: (25 mg) by Essential hypertension mouth once daily. losartan (COZAAR) 50 mg Take 1 Tablet 90 tablet. 4 07/07/2021 Active tabletIndications: (50 mg) by Essential hypertension mouth once daily. Active Problems Problem Noted Date Agatston coronary artery calcium score less than 100 0 02/14/2017 Overview: Scan 02/06/2017. Score of 0. See scanned document. Obstruction of right tear duct 04/27/2015 Cystocele 04/21/2014 Nephrolithiasis 05/15/2012 Melanoma of skin, site unspecified 03/20/2011 Overview: Left forearm. Excision by Dr. Norwood. Osito cedeño 2010 Yolanda Stephenson M.D. 03/20/2011 1: 40 PM FH: colon cancer 03/22/2010 Overview: Colonoscopy by Dr. Svitlana Negron every 3 yea rs. Last one 2013 Routine general medical examination at [facility] 03/22/2010 Overview: Dexa, mild osteopenia. Recheck 5 years. Yolanda Stephenson M.D. 04/27/2012 10:56 PM Unspecified essential hypertension 05/01/2007 Mixed hyperlipidemia 05/01/2007 Resolved Problems Problem Noted Date Resolved Date Pyelonephritis, unspecified 05/15/2012 03/31/2013 Encounters Date Type Specialty Care Team Description 06/19/2022 Nurse/Clinic Staff Only Immu nization/Injection 06/19/2022 Travel 06/15/2022 Travel from Last 3 Months Immunizations Name Administration Dates Next Due AMB Influenza, IIV3 (Age >=3 years)(Flu 06/24/2013, 06/17/20 12 Clinic Only) AMB Influenza, IIV4 PF (=>6 mos 06/18/2014 Flulaval,Fluzone Fluarix)(Flu Clinic Only) Amb Influenza, Inact (High-dose) (Flu 2016 Clinic Only) Influenza, High-dose Inactivated 05/25/2017, 06/22/2015 Influenza, Inactivated AIIV4 (Age 65+ 06/19/2022, 06/01/2021 , 06/17/2020 Years) Preserv Free Influenza, Inactivated IIV3 (Age 65+ 06/16/2019, 06/24/2018, 05/29/2017 Years) Preserv Free Pneumococcal Poly,23-Valent (Pneumovax) 05/25/2017 Pneumococcal conj 13-Valent (Prevnar 13) 05/09/2016 Td (Age >=7 Years) 07/16/1997 Tdap 12/12/2016, 05/01/2007 Zoster (Shingrix-RZV, recombinant) 12/12/2018, 09/25/2018 Zoster (Zostavax-ZVL, live) 03/25/2012 Family History Medical History Relation Name Comments Heart failure Brother 1 Stroke Brother 1 Cancer Brother 2 age 52 pancreati c ca Heart attack Brother 3 [place] age 49 Other Brother 3 brain aneurysm a ge 49 Stroke Brother 3 in eye and lost vision Liver disease Brother 4 [place] Cancer-colon Father age 68 Hypertension Father Diabetes Maternal Aunt Cancer-colon Mother age 48 Diabetes Mother Hypertension Mother Cancer-colon Paternal Uncle age 60 Cancer-breast Sister 1 age 61 Diabetes type II Sister 2 Good Health Sister 3 Cancer-breast Son age 20 Anesthesia Problem No Family History Blood Disease No Family History Relation Name Status Comments Brother 1 Alive pancreatic ca Brother 2 Brother 3 Brother 4 Father (Age 68) colon ca Maternal Aunt Mother Alive Paternal Uncle Sister 1 Sister 2 Sister 3 Son Social History Tobacco Use Types Packs/Day Years Used Date Never Smoker Smokeless Tobacco: Never Used Tobacco Cessation: Counseling Given: Yes Alcohol Use Standard Drinks/Week Comments Yes 0 (1 standard drink = 0.6 oz pure alcoho l) wine Alcohol Habits Answer Date Recorded How often do you have a drink containing alcohol? 2-3 times a week 06/17/2020 How many drinks containing alcohol do you have on a 1 or 2 06/17/2020 typical day when you are drinking? How often do you have six or more drinks on one Never 06/17/2020 occasion? Comment: wine 06/17/2020 Sex Assigned at Date Recorded Not on file COVID-19 Exposure Response Date Recorded In the last 10 days, have you been in contact No / Unsure 06/19/2022 10:35 AM CDT with someone who was confirmed or suspected to have Coronavirus/COVID-19? Obstetrics History Para Term AB IAB SAB Ectopic Multiple Living Live Births 3 3 3 3 Date Outcome GA Total Labor/2nd/3rd Weight Sex Delivery Anes PTL Corie A 1 A5 Name Clin Labor Term Term Term Last Filed Vital Signs Vital Sign Reading Time Taken Comments Blood Pressure 118/78 07/07/2021 10:26 AM BRIDAL SALES CONSULTANT Pulse 78 07/07/2021 10:26 AM BRIDAL SALES CONSULTANT Temperature 36.8 ??C (98.3 ??F) 07/15/2020 10:10 AM BRIDAL SALES CONSULTANT Respiratory Rate 14 07/29/2019 10:18 AM BRIDAL SALES CONSULTANT Oxygen Saturation 98% 07/07/2021 10:26 AM BRIDAL SALES CONSULTANT Inhaled Oxygen Concentration - - Weight 77 kg (169 lb 12.8 oz) 07/07/2021 10:26 AM BRIDAL SALES CONSULTANT Height 159.9 cm (5' 2.95) 07/07/2021 10:26 AM BRIDAL SALES CONSULTANT Body Mass Index 30.12 07/07/2021 10:26 AM BRIDAL SALES CONSULTANT Plan of Treatment Upcoming Encounters Date Type Specialty Care Team Description 07/03/2022 Office Visit Brittany Avery MD [address] [facility] [place] [address] (Wo rk) 07/24/2022 Office Visit Diamond Kovacs MD [address] [address] (Wo rk) 07/31/2022 Ancillary Procedure Health Maintenance Due Date Last Done Comments BMI (ht and wt on same day) for 07/07/2022 07/07/2021, 06/27, age 18+ 06/17/2020, Additional history exists Depression screening for age 12+ 07/07/2022 07/07/2021, , 06/17/2019, Additional history exists Medicare Wellness for age 65+ 07/07/2022 07/07/2021, 2018, 06/11/2018, Additional history exists Mammogram for age 45-75 07/27/2022 07/27/2021, 07/20/2020, 07/17/2019, Additional history exists Lipids for age 45-75 07/07/2026 07/07/2021, 06/17/2020, 06/16/2019, Additional history exists Tetanus booster 12/12/2026 12/12/2016, 05/01/2007, 07/16/1997 Colonoscopy through age 75 01/02/2028 01/01/2018, 8, 07/16/2014, Additional history exists DEXA/DXA scan for age 65+ Completed 05/09/2016, 04/18/2012 Tdap Completed 12/12/2016, 05/01/2007 Pneumococcal series for age 65+ Completed 05/25/2017, 04/27 Zoster (shingles) series for age Completed 12/12/2018, , 50+ 03/25/2012 Hepatitis C screening for age Completed 08/02/2020 (Comple nayely outside 18-79 of [place]) COVID-19 vaccine series Completed 05/23/2022, 11/29/2021, 06/26/2021, Additional history exists Influenza for age 65+ Completed 06/19/2022, 06/01/2021, 06/17/2020, Additional history exists Results Not on filefrom Last 3 Months Insurance Payer Benefit Plan / Subscriber ID Effective Dates Phone Addre ss Type Group MEDICARE PART B - MEDICARE PART B [id number] 2015-Prese ATTN: CLAIMS HB USE ONLY HB ONLY nt [address] [place] [address] [facility] MR [id number] 2019-Presen [address] [address] [place] [address] Advance Directives Documents on File Type Date Recorded Patient Clinical Resource Manager Explanati on Healthcare Directive 06/16/2019 2:55 PM healthca re directive 06/11/18 Care Teams Optician Relationship Specialty Start Date End Date Marisa Kovacs MD PCP - General Family Practice 06/11/18 [address] [place] [address]
--- OUTSIDE RECORDS SUMMARY | 2022-06-30 13:51 | XMS_ITS | Encounter Summary ---
:1950 Author Organization [facility] Address [address] [facility] [address] Care Team Providers Name Role Phone Yolanda Stephenson Primary Care Provider Reason for Visit Auth/Cert - Closed Specialty Diagnoses / Procedures Referred By Contact Refer red To Contact Surgery Diagnoses LEFT URETERAL STONE Sh Periop Services Procedures COMBINED CYSTOSCOPY, URETEROSCOPY, LASER HOLMIUM LITHOTRIPSY URETER(S), INSERT STENT COMBINED CYSTOSCOPY, RETROGRADES [address] [place] [address] Phone: Referral ID Status Reason Start Date Expiration Date Visits Requ ested Visits Authorized [id number] Closed 1 1 Encounter Details Date Type Department Care Team Description 08/04/2013 Hospital Encounter [facility] Pari Cast Ureteral stone Ritika Siddiqi MD (Primary Dx) [address] [facility] [id number] [address] [facility] [phone] [id number] [id number] Social History Tobacco Use Types Packs/Day Years Used Date Smoking Tobacco: Never Alcohol Use Standard Drinks/Week Comments Yes 0 (1 standard drink = 0.6 oz pure alcoho l) Occas Sex Assigned at Date Recorded Not on file documented as of this encounter Last Filed Vital Signs Vital Sign Reading Time Taken Comments Blood Pressure 121/74 08/04/2013 2:40 PM PUBLIC SPEAKER Pulse - - Temperature 36.3 ??C (97.3 ??F) 08/04/2013 2:08 PM PUBLIC SPEAKER Respiratory Rate 16 08/04/2013 2:40 PM PUBLIC SPEAKER Oxygen Saturation 94% 08/04/2013 2:40 PM PUBLIC SPEAKER Inhaled Oxygen Concentration - - Weight 78.2 kg (172 lb 4.8 oz) 08/04/2013 11:58 AM PUBLIC SPEAKER Height 160 cm (5' 3) 08/04/2013 11:58 AM PUBLIC SPEAKER Body Mass Index 30.52 08/04/2013 11:58 AM PUBLIC SPEAKER documented in this encounter Discharge Instructions Discharge [...] thesesymptoms, drink clear liquids (apple juice, mikael ormi, broth, 7-up etc.) until you feel better. [...] the lower end rests in the bladder. IC SPEAKER documented in this encounter Medications at Time [...] (HYZAAR) 50-12.5 MG mouth daily per tablet [place]-3 Fatty Acids Take 300 mg by mouth 0 12/19/2016 (OMEGA-3 FISH OIL PO) daily oxyCODONE-acetaminophen Take 1-2 tablets by 0 12/19/2016 (PERCOCET) 5-325 MG per mouth every 4 hours tablet as needed documented as of this encounter Progress Notes Aurelio Non-Provider - 08/14/2013 3:24 PM CST IC SPEAKER Aurelio Provider - 08/07/2013 10:22 AM CST IC SPEAKER documented in this encounter H&P Notes Aurelio Provider - 08/04/2013 6:27 AM CST IC SPEAKER documented in this encounter Nursing Notes Violetta Hernandez - 08/04/2013 3:30 PM CST Pt is unable to void on bedpan. BLadder scanned: volume 559ml. Pt ambulated with assist to restroom,voided a little. Pt returned to bay, bladder scanned again, now 253ml. Pt states urge to urinate is resolved. Denies pain. IC SPEAKER Renee White RN - 08/04/2013 2:21 PM CST Assumed cares while primary nurse went on lunch break from 1408 to 1440. IC SPEAKER documented in this encounter Miscellaneous Notes Op [...] office via cystoscopy. PARI CAST MD MT: #[id number] Name: GENOVEVA ARTEAGA MRN: [id number] Account: [id number] : 1950 Procedure Date: 08/04/2013 Document: [id number] IC SPEAKER Brief Op Note - Pari Cast MD - 08/04/2013 1:58 PM CST [facility] Brief Operative Note Pre-operative diagnosis: LEFT [...] pt in office Pari Cast MD,M.D. F.A.C.S. IC SPEAKER documented in this encounter Plan of Treatment Not on filedocumented as of this encounter Procedures Procedure Name Priority Date/Time Associated Comments Diagnosis XR PYELOGRAM RETRO Routine 08/04/2013 2:00 PM Res ults for this SURGERY G/E 1 FILMS PUBLIC SPEAKER procedur e are in the results section. SURGICAL PATHOLOGY Routine 08/04/2013 1:52 PM Res ults for this EXAM PUBLIC SPEAKER procedure are i n the results section. STONE ANALYSIS Routine 08/04/2013 1:52 PM Results for this PUBLIC SPEAKER procedure are i n the results section. CYSTOSCOPY, WITH 08/04/2013 12:43 LEFT URETERAL STONE RETROGRADE PYELOGRAM PM PUBLIC SPEAKER CYSTOURETEROSCOPY, 08/04/2013 12:43 LEFT URETERAL STON E WITH LITHOTRIPSY PM PUBLIC SPEAKER USING LASER AND URETERAL STENT INSERTION documented in this encounter Results XR Pyelogram Retro Surgery G/E 1 Films (08/04/2013 2:00 PM PUBLIC SPEAKER) Anatomical Region Laterality Modality Abdomen/Pelvis Computed Radiography Specimen (Source) Anatomical Location Collection Method / Collectio n Time Received Time / Laterality Volume Impressions 08/05/2013 2:17 PM PUBLIC SPEAKER IMPRESSION: Four images obtained during placement of double-J stent from the left renal pelvis to the urinar y bladder. SCARLETT BHATT MD Narrative 08/05/2013 2:17 PM PUBLIC SPEAKER RETROGRADE PYELOGRAM ??08/04/2013 2:00 PM HISTORY: ??Left [...] BENEDICTO Surgical pathology exam (08/04/2013 1:52 PM PUBLIC SPEAKER) Component Value Ref Test Analysis Performed At [facility] Range Method Time Signature Copath Report Patient Name: GENOVEVA ARTEAGA MR#: [id number] Specimen #: [id number] Collected: 08/04/2013 Received: 08/05/2013 Reported: 08/05/2013 14:59 [...] only. SD ??TRS/tw 08/05/2013 TESTING LAB LOCATION: [address] ??[address] COLLECTION SITE: Client: [facility] Location: [facility] (S) Specimen Anatomical Collection Method Collection Time Receive d Time (Source) Location / / Volume Laterality 08/04/2013 1:52 PM 3 9:04 PUBLIC SPEAKER AM PUBLIC SPEAKER [facility]ari Cast [facility] Performing Organization Address City/State/ZIP Code Phon e Number [place] Stone analysis (08/04/2013 1:52 PM PUBLIC SPEAKER) Component Value Ref Test Analysis Performed At [facility] Range Method Time Signature Stone SEE NOTE [facility] Composition (Note) [facility] Calculi composed primarily of: HOSPITAL LAB 40% [...] composition determined by FTIR analysis. Performed by [facility], [address] [place] [id number] [email or web address], Jasbir Irby MD, Lab. Director Calculi Number Not Applicable [facility] LAB Calculi Size Not Applicable [facility] Unit: mm [facility] LAB Calculi Not Applicable [place] Description [facility] LAB Stone Mass SEE NOTE mg [facility] (Note) [facility] Sample mass < 2 mg. Accurate measurement of weight, size, HOSPITAL LAB number and description of the sample cannot be determined. Specimen Anatomical Collection Method Collection Time Receive d Time (Source) Location / / Volume Laterality 08/04/2013 1:52 PM 3 9:04 PUBLIC SPEAKER AM PUBLIC SPEAKER Pari Cast MD LAB - BODY FLUIDS ORDERABLES Performing Organization Address City/State/ZIP Code Phon e Number [facility] [address] [id number] [facility] LAB documented in this encounter Visit Diagnoses Diagnosis Ureteral stone - Primary Calculus of ureter documented in this encounter Active and Recently Administered Medications Times are shown in PUBLIC SPEAKER. Scheduled Medication Order 08/02/2013 08/03/2013 08/04/2013 ciprofloxacin (CIPRO) 400 mg in dextrose 5% 200 mL IVPB (COMPLET ED) 1315 (Given - Provider: Radha Joya, STATE WILDLIFE OFFICER SERVICE UNIT OPERATOR [employer]IL [employer]LL) 400 mg, Intravenous, PRE-OP/PRE-PROCEDUR E, For 1 [...] Intra-procedure documented in this encounter Care Teams Rewinder Relationship Specialty Start Date End Date Yolanda Stephenson PCP - General Family Practice 07/30/13 11/22/16 [facility] [address] [place] [address] documented as of this encounter
--- OUTSIDE RECORDS SUMMARY | 2022-06-30 13:51 | XMS_ITS | Encounter Summary ---
:1950 Author Organization [place] Address [address] [facility] [place] [address] Care Team Providers Name Role Phone Irma Chin MD Primary Care Provider Reason for Visit Auth/Cert Specialty Diagnoses / Procedures Referred By Contact Refer red To Contact Surgery Diagnoses RIGHT NASAL LACRIMAL DUCT OBSTRUCTION Sh Periop Servic es Procedures DACRYOCYSTORHINOSTOMY [address] [place] [address] Phone: Referral ID Status Reason Start Date Expiration Date Visits Requ ested Visits Authorized [id number] 1 1 Encounter Details Date Type Department Care Team Description 12/19/2016 Hospital Encounter [facility] Sandra Cochran asolacrimal duct [place] Phase II MD Juli[place] obstruction, right [address] OPHTHALMIC (Primary Dx) [place] [facility] [address] [address] [phone] [address] [place] [id number] Social History Tobacco Use Types Packs/Day Years [...] in this encounter Discharge Instructions Discharge InstructionsMandie Setvenson RN - 12/19/2016 9:05 AM CDT Same [...] can address your concerns. Dacryocystorhinostomy Discharge Instructions [place] [facility] Manager Dr. Sandra Cochran [address] [place], [place] [address] Things to avoid: You should avoid blowing [...] not answered above. The phone number is [phone]. documented in this encounter Medications at Time [...] hours as needed Nasolacrimal duct obstruction, right lykeuqho-khxhmznlv-wspylasx Place 1 drop into 1 Bottle 0 0 12/19/2016 12/31/2017 asone (MAXITROL) the right eye 3 [id number] SUSP times daily ophthalmic suspIndications: Nasolacrimal duct [...] the underlying nasal mucosa was identified. A [place] blade was then used to make an [...] scissors. A 5-0 vicryl suture on half chitina needle was then used to suture together [...] same 5-0 vicryl suture on a half chitina needle. The skin incision was then closed [...] ORDERABLES documented in this encounter Visit Diagnoses Diagnosis Nasolacrimal duct obstruction, right - P rimary Stenosis of nasolacrimal duct, acquired documented in this encounter Administered Medications Inactive Administered Medications - up to 3 most recent administrations Medication Order MAR Action Action Date Dose Rate Site dimenhyDRINATE (DRAMAMINE) tablet Given 12/19/2016 7:00 AM CDT 5 0 mg 50 mg 50 mg, Oral, ONCE, On Sun12/19/16 at 0700, For 1 dose, Pre-procedure fentaNYL Citrate (PF) (SUBLIMAZE) inject ion 25-50 [...] mg 0.3-0.5 mg, Intravenous, EVERY 10 MIN IL N, other, acute pain.?May administer if Respiratory [...] administration of oral pain medication., PACU/Phase II prochlorperazine (COMPAZINE) injection 5 mg 5 mg, [...] Sandra Cochran MD) PRN, Starting Sun12/19/16 at 0736, Intra-procedure fentaNYL Citrate (PF) [...] Intravenous, EVERY 15 MIN PRN , Starting Sun12/19/16 at 0840, other, acute pain while in Phase II, MAX cumulative dose = 250 mcg. Use Fentanyl initially, as a short acting agent for acute pain control. If insufficient, or a longer a cting agent is needed, begin Morphine or Hydromorphone if ordered., Phase ll HYDROmorphone (PF) (DILAUDID) injection 0.3-0.5 mg 0.3-0.5 mg, Intravenous, EVERY 10 MIN IL N, Starting Sun12/19/16 at 0840, Until Sun12/19/16 at 1322, other, acute pain.?May administer if Respiratory Rate is greater than 10, PACU/Phase II, If fentany l is also ordered, use HYDROmorphone if pain control insufficient with fentanyl or a longer acting agent is needed. Max cumulative dose = 2 mg meperidine (DEMEROL) injection 12.5 mg 12.5 mg, Intravenous, EVERY 15 MIN PRN, 2 doses, Starting Sun12/19/16 at 0840, Until Sun12/19/16 at 1322, post anesthesia shivering, PACU/Phase II naloxone (NARCAN) injection 0.1-0.4 mg 0.1-0.4 mg, Intravenous, EVERY 2 MIN PRN , opioid reversal, Starting Sun12/19/16 at 0840, For 24 hours, For [...] Group 1) 0940 (Given - Provider: Radha Joyner, RN) 4 mg, Intravenous, EVERY 30 MIN PRN, steven sea, vomiting, Administer over 2-5 Minutes, Starting 12/19/16 at 0840, For 2 doses, MAX total dose = 8 mg, including OR dosing. This is step 1 of the nausea an d vomiting protocol. If not resolved in 15 minutes, then go to step 2 (Prochlorperazine if ordered). Irritant., PACU/Phase II ondansetron (ZOFRAN-ODT) ODT tab 4 mg(Linked Group 1) 0940 (See Alternative - Provider: Radha Joyner, HERMANN) 4 mg, Oral, EVERY 30 MIN PRN, [...] II documented in this encounter Care Teams Weight Clerk Relationship Specialty Start Date End Date Irma Chin, PCP - General Family Practice documented as of this encounter
--- OUTSIDE RECORDS SUMMARY | 2022-06-30 13:51 | XMS_ITS | Encounter Summary ---
:1950 Author Organization [facility] Address [address] [facility] [place] [address] Care Team Providers Name Role Phone Yolanda Stephenson Primary Care Provider Reason for Visit Auth/Cert - Closed Specialty Diagnoses / Procedures Referred By Contact Refer red To Contact Surgery Diagnoses LEFT URETERAL STONE Sh Periop Services Procedures COMBINED CYSTOSCOPY, URETEROSCOPY, LASER HOLMIUM LITHOTRIPSY URETER(S), INSERT STENT COMBINED CYSTOSCOPY, RETROGRADES [address] [place] [address] Phone: Referral ID Status Reason Start Date Expiration Date Visits Requ ested Visits Authorized [id number] Closed 1 1 Encounter Details Date Type Department Care Team Description 08/04/2013 Anesthesia Event [facility] Swathi Mclaughlin MD [address] [address] [place] Radha Joya R, [employer] CUTTER PLASTER MODEL AND MOLD MAKER [address] [place] [address] [place] [address] Anesthesia Record Procedure Summary Procedure Name Responsible Anesthesia Start Anesthesia Stop Anesthesiologist Time Time CYSTOSCOPY, LEFT Natalio Mclaughlin MD 08/04/13 1303 08/04/13 1411 RETROGRADES, LEFT URETEROSCOPY, LEFT DOUBLE J STENT PLACEMENT, stone extraction (Left: Urethra) Events Date Time Event Comment 08/04/2013 1256 1303 An Start 1305 An Start Data 1310 An Induction 1311 An LMA 1312 AN START SEVO 1327 AN INCISION 1400 AN END SEVO 1400 An Emergence 1405 LMA Removed 1405 an stop data 1411 An Stop Electronically s igned by Radha Joya on August 04, 2013 2:11 PM Name Total dexamethasone 4 mg/mL 4 mg fentaNYL 50 mcg/mL 100 mcg midazolam 1 mg/mL 2 mg ondansetron 2 mg/mL 4 mg propofol 10 mg/mL 140 mg propofol infusion (mcg/kg/min) 406.25 mg ciprofloxacin (CIPRO) 400 mg in dextrose 5% 200 mL IVP B 400 mg acetaminophen (OFIRMEV) IV 10 mg/mL 1,000 mg LR 900 mL Agents Name O2 Air Exp Sevoflurane Ins Sevoflurane Blood No blood administrations on file. Lines, Drains, and Airways Type Details Placement Removal Retired Non-Surgical 4; laryngeal mask 08/04/13 1333 by 08/04/13 1405 by Airway airway; center of [place], Leidy y R, mouth; WS PLASTER MODEL AND MOLD MAKER; End of [employer] PLASTER MODEL AND MOLD MAKER therapy Peripheral IV 20 G; Left; Lower 08/04/13 1333 by 08/04/13 1551 by forearm; Alcohol; Luna Gipp, S arah Injectable; Tolerated well documented in this encounter Social History Tobacco Use Types Packs/Day Years Used Date Smoking Tobacco: Never Alcohol Use Standard Drinks/Week Comments Yes 0 (1 standard drink = 0.6 oz pure alcoho l) Occas Sex Assigned at Date Recorded Not on file documented as of this encounter OR Notes Anesthesia Postprocedure Evaluation - Natalio Mclaughlin MD - 08/04/2013 5:48 PM CST Anesthesia Post-Evaluation Note Patient: Genoveva Bosch Patient location: PACU Procedure(s) Performed: Procedure(s) with comments: COMBINED CYSTOSCOPY, URETEROSCOPY, LASER HOLMIUM LITHOTRIPSY URETER(S), INSERT STENT - CYSTOSCOPY, LEFT RETROGRADES, LEFT URETEROSCOPY, LEFT DOUBLE J STENT PLACEMENT, stone extraction COMBINED CYSTOSCOPY, RETROGRADES Anesthesia type: General, ETT Post Op Diagnosis: * No post-op diagnosis entered *. Post Op Diagnosis Additional Comments:No value filed. Patient Condition Respiratory Function (RR / SpO2 / Airway Patency): Satisfactory Cardiac Function (HR / Rhythm / BP): Satisfactory Mental Status: Satisfactory Temperature: Satisfactory Pain Control: Satisfactory PONV: None Beta-Sigifredo Therapy: None indicated Hydration Status: Satisfactory Last Vitals: Filed Vitals: 08/04/13 1415 08/04/13 1430 08/04/13 1440 BP: 108/75 124/79 121/74 Temp: Resp: 16 16 16 SpO2: 100% 100% 94% Additional Comments: IOVASCULAR TECH Anesthesia Preprocedure Evaluation - Natalio Mclaughlin MD - 08/04/2013 12:55 PM CST Anesthesia Evaluation . Pt has had prior anesthetic. ROS/MED HX ENT/Pulmonary: (-) sleep apnea Neurologic: Cardiovascular: (+) hypertension . : . . . :. . METS/Exercise Tolerance: Hematologic: Musculoskeletal: GI/Hepatic: (-) GERD Renal/Genitourinary: Endo: Psychiatric: Infectious Disease: Malignancy: Other: Physical Exam Normal systems: cardiovascular, pulmonary and dental Airway Mallampati: II TM distance: >3 FB Neck ROM: full Dental Cardiovascular Pulmonary Anesthesia Plan ASA Score: 2 . Plan for General and ETT - with Intravenous induction.Maintenance will be Balanced. Routine analgesia and antiemetics to be used for post-operative care. Anesthetic plan, risks, benefits and alternatives discussed with: patient or merchandiser retail representative. History & Physical Review History and physical reviewed; no interval change. . IOVASCULAR TECH documented in this encounter Miscellaneous Notes Anesthesia Care Transfer Note - Radha Joya APRN CRNA - 08/04/2013 2:10 PM CST Anesthesia Care Transfer Note Patient: Genoveva Bosch Transferred to: PACU Patient vital signs: stable 80, 100%, 126/69, 97.3 Airway: none IOVASCULAR TECH documented in this encounter Plan of Treatment Not on filedocumented as of this encounter Visit Diagnoses Not on filedocumented in this encounter Administered Medications Inactive Administered Medications - up to 3 most recent administrations Medication Order MAR Action Action Date Dose Rate Site acetaminophen (OFIRMEV) 10 mg/mL Given 08/04/2013 1:55 PM CARDIOVASCULAR TECH 1, 000 mg infusion PRN, mild pain, fever, Administer over 15 Minutes, Starting on Sun08/04/13 at 1355, Maximum dose of acetaminophen is 4000 mg from all sources., Anesthesia Intra-op ciprofloxacin (CIPRO) 400 mg in dextrose 5% Given 08/04/2013 1:15 PM CARDIOVASCULAR TECH 400 mg 200 mL IVPB Routine, 400 mg, Intravenous, PRE-OP/PRE-PROCEDURE, Starting on Sun08/04/13 at 1143, For 1 dose, Indications: Perioperative Pharmacoprophylaxis, Pre-procedure dexamethasone (DECADRON) injection Given 08/04/2013 1:31 PM CARDIOVASCULAR TECH 4 mg PRN, Administer over 1-4 Minutes, Starting on Sun08/04/13 at 1331, Anesthesia Intra-op fentaNYL (SUBLIMAZE) injection Given 08/04/2013 2:00 PM CARDIOVASCULAR TECH 25 mcg PRN, moderate to severe pain, Starting on Sun08/04/13 at 1308, Anesthesia Intra-op Given 08/04/2013 1:36 PM CARDIOVASCULAR TECH 25 mcg Given 08/04/2013 1:08 PM CARDIOVASCULAR TECH 50 mcg lactated ringers infusion New Bag 08/04/2013 1:03 PM CARDIOVASCULAR TECH mL Intravenous, CONTINUOUS PRN, Anesthesia Intra-op, Starting on Sun08/04/13 at 1303, Until Sun08/04/13 at 1411 midazolam (VERSED) injection Given 08/04/2013 1:08 PM CARDIOVASCULAR TECH 2 mg PRN, anxiety, Starting on Sun08/04/13 at 1308, Anesthesia Intra-op ondansetron (ZOFRAN) injection Given 08/04/2013 1:31 PM CARDIOVASCULAR TECH 4 mg PRN, nausea, vomiting, Administer over 2-5 Minutes, Starting on Sun08/04/13 at 1331, Anesthesia Intra-op propofol (DIPRIVAN) infusion Rate/Dose 08/04/2013 1:53 75 mcg/kg/min 35.2 mL/hr Intravenous, CONTINUOUS PRN, Change PM CARDIOVASCULAR TECH Starting on Sun08/04/13 at 1315, Range: 5-75mcg/kg/min Titrate by 5-10 mcg/kg/min every 5 minutes., Anesthesia Intra-op Rate/Dose Change 08/04/2013 1:40 PM CARDIOVASCULAR TECH 140 mcg/kg/min 65.7 mL/hr New Bag 08/04/2013 1:15 PM CARDIOVASCULAR TECH 120 mcg/kg/min 56.3 mL/hr propofol (DIPRIVAN) injection Given 08/04/2013 1:10 PM CARDIOVASCULAR TECH 140 mg PRN, Starting on Sun08/04/13 at 1310, Anesthesia Intra-op documented in this encounter Care Teams Lap Welder Relationship Specialty Start Date End Date Yolanda Stephenson PCP - General Family Practice 07/30/13 11/22/16 [facility] [address] [place] [address] documented as of this encounter
--- NOTE | 2022-06-30 13:53 | ED_ITS ---
HPI - General Adult General Chief complaint: Flank Pain Stated complaint: Kidney stones Time Seen by Provider: 06/30/22 12:07 History of Present Illness HPI narrative: 72-year-old woman returning to the emergency department being seen here 2 days ago with right flank area pain. She had a terrible night last night with severe colicky pain. Was taking 5/325 [place] 1 tab every 2 hours or so. Worried about acetaminophen overdose. She has not had any fever. No hematuria. There is que stion of intrarenal/renal pelvis stones versus extravasation of contrast in the right kidney on IV contrasted CT abdomen and pelvis 2 days ago. Urine with some red and white cells along with some hyperemia around the ureter and bilateral mild hydronephrosis prompted concern of infectious etiology as well. Was initiated on Omnicef. This pain was in the same area but maybe a little bit lower on further reflection. She is also feeling bloaty and uncomfortable generally in the low abdomen which she would associate with the diarrhea that had been present 3 days ago. She was to be seen in clinic today but they sent to the emergency department and have arranged for an MD appointment tomorrow. She is particularly worried as in the little less than 2 weeks time has air travel to vacation in [place]. Urine culture has come back essentially negative. Reports a remote history of nephrolithiasis and lithotripsy. They are wondering if maybe she could get lithotripsy. History also of cystocele and rectocele. Later questioning reveals that has removed admittedly helpful pessary during recent illness last 7+ days. Related Data Home Medications Medication Instructions Recorded Confirmed hydrochlorothiazide 25 mg tablet 25 mg PO DAILY 06/28/22 06/30/22 losartan 50 mg tablet 50 mg PO DAILY 06/28/22 06/30/22 Previous Rx's Medication Instructions Recorded cefdinir 300 mg capsule 300 mg PO BID 7 days #14 caps 06/28/22 tamsulosin 0.4 mg capsule (Flomax) 0.4 mg PO DAILY #7 caps 06/30/22 Allergies Allergy/AdvReac Type Severity Reaction Status Date / Time No Known Drug Allergies Allergy Verified 06/28/22 16:35 Review of Systems Status of ROS: Reports: 6 or more systems reviewed and unremarkable except as noted in History and below PFSH PFSH Social History Smoking Status: Never smoker How often do you have a drink containing alcohol: never AUDIT-C Alcohol total score: 0 Non-prescribed substance use: denies use Exam Narrative: Exam Narrative: Pleasant. Calm. No apparent distress beyond mild anxiety. Abdomen is soft normoactive bowel sounds. Protuberant. No peritoneal signs. Mildly tender to palpation across the low abdomen. Tender to percussion in the right flank. Cardiovascular with regular rate and rhythm, no MRG Breathing easily. Const: Vital Signs, click to edit/add: Vital Signs - 24 hr 06/30/22 12:01 06/30/22 13:08 Temperature 98.1 F Pulse Rate [Right Pulse Oximeter] 76 72 Respiratory Rate 20 20 Blood Pressure [Le ft Upper Arm] 119/73 125/68 Pulse Oximetry 97 95 Oxygen Delivery Me thod Room Air Room Air Documenting provider has reviewed patient's vital signs: yes Course Course Hospital Course: Does not initially require anything for pain but shortly again with evolution of severe right flank area pain. Given Dilaudid and Ketorolac IM. Pain eventually settled. also given Flomax Consultations Consultation #1: Prior to departure we did reach out to [facility]; managed to reach Dr. Solomon. He was able to review images and also appreciates relatively distended bladder among hydro and perinephric edema. Agrees that this may be contributing to ureteral colic, possibly in the setting of a now-passed stone. Vital Signs Vital signs: Initial Vital Signs Temperature 98.1 F 06/30/22 12:01 Temperature Source Temporal Artery Scan 06/30/22 12:01 Pulse Rate 76 06/30/22 12:01 Respiratory Rate 20 06/30/22 12:01 Blood Pressure 119/73 06/30/22 12:01 Blood Pressure Mean 88 06/30/22 12:01 Blood Pressure Position Sitting 06/30/22 12:01 Pulse Oximetry 97 06/30/22 12:01 Oxygen Delivery Method 06/30/22 12:01 Vital Signs Temperature 98.1 F 06/30/22 12:01 Pulse Rate 76 06/30/22 12:01 Respiratory Rate 20 06/30/22 12:01 Blood Pressure 119/73 06/30/22 12:01 Pulse Oximetry 97 06/30/22 12:01 Oxygen Delivery Method 06/30/22 12:01 Temperature 98.8 F 06/30/22 16:00 Pulse Rate 69 06/30/22 18:23 Respiratory Rate 18 06/30/22 18:23 Blood Pressure 118/73 06/30/22 18:23 Pulse Oximetry 94 06/30/22 16:00 Oxygen Delivery Method 06/30/22 16:00 Medical Decision Making MDM Narrative Medical decision making narrative: Is not clear to me that the stone was ever documented. Appears that primary concern being infection also does not appear to have been present. I think most efficient way to clarify this history scan without contrast at this time. Clinically I do not think has any evidence of infectious etiology. Reviewing images by my read seems to have rather distended bladder on initial and today's imaging. I wonder if might be retaining some degree of urine in the setting of cystocele and rectocele thereby possibly also resulting in some ureteral colic and/or reflux.. Postvoid bladder scan still at 240- 250 mL. Radiology impression today -- IMPRESSION: Stable mild bilateral hydronephrosis. Interval worsening of right perinephric inflammation/edema. This can be seen with urinary tract infection or an occult obstructive process. No current renal stones evident. Placed cristina and drained of measured amount. Medical Records Medical records reviewed: Yes I reviewed the patient's medical records Lab Data Lab results reviewed: Yes I reviewed the patient's lab results Labs: Lab Results 06/30/22 Range/Units 13:45 Urine Color Yellow (Yellow) Urine Appearance Clear (Clear) Urine pH 7.0 (5.0-8.5) Ur Specific [place] 1.020 (1.000-1.030) Urine Protein Trace A (Negative) Urine Glucose (UA) Negative (Negative) Urine Ketones 1+ A (Negative) Urine Blood Trace-intact A (Negative) Urine Nitrite Negative (Negative) Urine Bilirubin Negative (Negative) Urine Urobilinogen 0.2 (0.2-1.0) Ur Leukocyte Esterase Trace A (Negative) Urine RBC 2-5 A (0-2) Urine WBC 2-5 (0-5) Ur Squamous Epith Cells Moderate A (None-Few) Urine Bacteria None (None) Discharge Plan Discharge Clinical Impression: Ureteral colic, Urinary reflux, Acute urinary retention Patient Disposition: Home w/ Parent or Adult Condition: Improved Additional Instructions: You may have passed a kidney stone and that combined with urinary retention as discussed now with residual ureteral colic. I have not seen that you have had a urinary tract infection here yet but given the degree of urinary congestion so to speak that I think you might have been suffering, I would continue the course of antibiotics. As soon as you get home I would replace your pessary. Might want to attempt somewhat more frequent urinary voids over the next couple of days. If markedly improved/symptom-free, can probably cancel the appointment for Sunday. Return for increasing and persistent pain, fever, repeated vomiting. You might strain your urine over this next week though I think this will be low yield. Would still take Flomax daily over the next 5 days. Percocet from [facility] if needed. Today I spoke with Dr. Solomon with [facility]. Can take between 600-800 mg of ibuprofen per dose. Prescriptions: New tamsulosin [Flomax] 0.4 mg capsule 0.4 mg PO DAILY Qty: 7 0RF No Action losartan 50 mg tablet 50 mg PO DAILY Label Comments: TAKE 1 TABLET (50 MG) BY MOUTH ONCE DAILY. hydrochlorothiazide 25 mg tablet 25 mg PO DAILY Label Comments: TAKE 1 TABLET (25 MG) BY MOUTH ONCE DAILY. cefdinir 300 mg capsule 300 mg PO BID 7 Days Qty: 14 0RF Follow Up/Referrals: Marisa Kovacs MD [Primary Care Provider] - Stand Alone Forms: [employer] [place] Info Instructions
--- NOTE | 2022-06-30 14:01 | CRLHL7_ITS ---
For Patients: As a result of the Century Cures Act, medical imaging exams and procedure reports are released immediately into your electronic medical record. You may view this report before your referring provider. If you have questions, please contact your health care provider. INDICATION: Right-sided flank pain. TECHNIQUE: CT abdomen and pelvis without contrast. COMPARISON: 06/28/2022. FINDINGS: Lower chest: Unremarkable. Liver: Normal in size and attenuation. No suspicious masses. Gallbladder and bile ducts: No stones or inflammation. No biliary dilatation. Pancreas: Unremarkable. No mass or inflammation. Spleen: Normal in size. No masses. Adrenal glands: Normal in size. No nodules. Kidneys: Mild symmetric prominence of both renal collecting systems similar to the prior exam from 2 days ago. Moderate right perinephric inflammation or edema has worsened. No current kidney or ureteral stone. GI tract: Unremarkable. Normal in caliber. No sign of mass or inflammation. Normal appendix. Vasculature: Abdominal aorta is normal in caliber. Lymph nodes: No lymphadenopathy. Peritoneum/Abdominal Wall: Unremarkable. No sign of mass or infiltration. No free air or significant free fluid. Pelvis: Unremarkable. No pelvic masses. Bones: Unremarkable for age. IMPRESSION: Stable mild bilateral hydronephrosis. Interval worsening of right perinephric inflammation/edema. This can be seen with urinary tract infection or an occult obstructive process. No current renal stones evident. Please note that all CT scans at this facility use dose modulation, iterative reconstruction, and/or weight-based dosing when appropriate to reduce radiation dose to as low as reasonably achievable. Dictated by Jose Lundberg MD @ 06/30/2022 2:47:31 PM (Electronically Signed)
--- NOTE | 2022-06-30 14:21 | ED.NURSE ---
Pt to and back from radiology
[2022-06-30 14:24] LABS: Appearance Urine Clear (Clear); Bilirubin Urine Negative (Negative); Color Urine Yellow (Yellow); Glucose Urine Negative (Negative)
[2022-06-30 14:25] LABS: Blood Urine Trace-intact (Negative); Ketones Urine 1+ (Negative); Nitrite Urine Negative (Negative); Protein Urine Trace (Negative); Urobilinogen Urine 0.2 (0.2-1.0)
[2022-06-30 14:26] LABS: Leukocyte Esterase Urine Trace (Negative); Squamous Epithelial Cell Urine Moderate (None-Few)
[2022-06-30] MEDS: HYDROmorphone 0.5 mg/0.5 ml inj 1 MG IM (15:13)
[2022-06-30] MEDS: KETOROLAC 60 MG/2 ML inj 45 MG IM (15:13)
--- NOTE | 2022-06-30 15:24 | ED.NURSE ---
was having severe pain in right lowerl abd area and flank. did get dilaudid 1 mg and toradol 45 mg im.
--- NOTE | 2022-06-30 15:31 | ED.NURSE ---
dr hdez in room explaining some of the results. was able to get to the bathroom and void after the pain meds were given.
[2022-06-30 16:00] VITALS: BP 116/58; PULSE 70; RESP 16; TEMP 37.1; O2SAT 94
[2022-06-30] MEDS: TAMSULOSIN HCL 0.4 MG CAPSULE PO (16:14)
--- NOTE | 2022-06-30 18:00 | ED.NURSE ---
catheter was removed. had 220 ml of straw colored urine in bag. this was dc'd and dr hdez explained plan. does want to go home. will drive and is very attentive.
[2022-06-30 18:23] VITALS: BP 118/73; PULSE 69; RESP 18
== END 2022-06-30 18:27 | disposition home or self-care (01) ==
PROVIDERS: Emergency Provider Family Medicine; PCP Family Medicine
DX: N20.1 Calculus of ureter (principal); R33.9 Retention of urine, unspecified
CPT/HCPCS: 74176; 81001; 96372; 99284; A9270; J1170; J1885

== ENCOUNTER 2025-01-30 18:23 | Emergency (ER) | payer MEDICARE, SELFPAY ==
[2025-01-30] VITALS (12 sets, daily range): BP systolic 115–193; BP diastolic 63–79; PULSE 61–77; RESP 26; TEMP 36.1; O2SAT 93–97; BMI 29.6
--- OUTSIDE RECORDS SUMMARY | 2025-01-30 18:26 | XMS_ITS | Clinical Summary ---
Author Organization [facility] Address [address] [place] [address] Care Team Providers Care Field Auto Appraiser Name Role Phone Unavailable Primary Care Provider Unavailabl e Source Comments PLEASE NOTE, if this patient is a minor, it may be UNLAWFUL to discuss sensitive information that is contained in these records (such as FAMILY PLANNING, MENTAL HEALTH or SUBSTANCE ABUSE) with the minor patient's parent or other person without the patient's specific authorization.[facility] Social History Tobacco Use Types Packs/Day Years Used Date Smoking Tobacco: Never Assessed Comments Unknown Sex and Gender Information Value Date Recorded Sex Assigned at Not on file Legal Sex Female 12:01 PM PST Gender Identity Not on file Sexual Orientation Not on file Plan of Treatment Not on file
--- OUTSIDE RECORDS SUMMARY | 2025-01-30 18:26 | XMS_ITS | Clinical Summary ---
Author Organization [facility] Address [address] [place] [id number] Care Team Providers Care Shredding Specialist Name Role Phone Irma Chin MD Primary Ca re Provider Allergies Active Allergy Reactions Criticality Noted Date Comments Lisinopril Cough 12/18/2016 Medications ASPIRIN PO Take 81 mg by mouth daily Active multivitamin, therapeutic with minerals (MULTI-VITAMIN) TABS Take 1 tablet by mouth daily Active Losartan Potassium (COZAAR PO) Take 50 mg by mouth daily Active HYDROCHLOROTHIAZ JAGDISH PO Take 25 mg by mouth daily Active Active Problems No known active problems Family History Medical History Relation Comments Colon Cancer Father Colon Cancer Mother Relation Status Comments Father Mother Alive Social History Tobacco Use Types Packs/Day Years Used Date Smoking Tobacco: Never Smokeless Tobacco: Never Alcohol Use Standard Drinks/Week Comments Yes 0 (1 standard drink = 0.6 oz pur e alcohol) Occas Adolescent Education Answer Date Record ed Getting School Help Needed Not on file 06/10 Comments No Sex and Gender Information Value Date Recorded Sex Assigned at Not on file 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 Gender Identity Not on file Sexual Orientation Not on file Last Filed Vital Signs Vital Sign Reading Time Taken Comments Blood Pressure 117/72 01/01/2018 11:11 AM CDT Pulse - - Temperature 36.3 C (97.4 F) 12/19/2016 9:45 AM CDT Respiratory Rate 16 01/01/2018 11:11 AM CDT Oxygen Saturation 98% 01/01/2018 11:11 AM CDT Inhaled Oxygen Concentration - - Weight 72.6 kg (160 lb) 01/01/2018 9:25 AM CDT Height 160 cm (5' 3) 01/01/2018 9:25 AM CDT Body Mass Index 28.34 01/01/2018 9:25 AM CDT Plan of Treatment Not on file Medical Devices Implanted Type Area Propagator Laborer Device Identifier Shelf Expiration Date Model / Serial / Lot Eye Imp Kit Lacrimal Intubation Prasanna [id number] Implanted:Qty: 1 on 12/19/2016 by Sandra Cochran MD at [facility] Lens/Eye Implant Right: Eye [employer] 09/26/2019 [id number] / [id number] / Stent Ureteral Dbl Pigtail Inlay [id number] Implanted:Qty: 1 on 08/04/2013 by Saurav Kelsey MD at [facility] Left: Ureter CR [employer] 12/24/2017 [id number] / / [id number] Insurance MEDICARE [facility] Care Teams Shredding Specialist Relationship Specialty Start Date End Date Irma Chin MD PCP - General Family Practice 11/23/16
--- OUTSIDE RECORDS SUMMARY | 2025-01-30 18:26 | XMS_ITS | Clinical Summary ---
Author Organization [facility] Address [address] [place] [id number] Care Team Providers Care Telescope Maintenance Name Role Phone Marisa Kovacs MD Primary Care Prov ider Allergies Active Allergy Reactions Criticality Noted Date Comments Lisinopril Cough 05/01/2007 intol cough Medications multivitamin (MVI) tablet Take 1 tablet by mouth once daily. 0 1 Active hydroCHLOROthiazide 25 mg tabletIndications:E ssential hypertension Take 1 Tablet (25 mg) by mouth once daily. 90 Tablet 5 5 Active losartan 50 mg tabletIndications:E ssential hypertension Take 1 Tablet (50 mg) by mouth once daily. 90 Tablet 5 5 Active rosuvastatin 10 mg tabletIndications:M ixed hyperlipidemia Take 1 Tablet (10 mg) by mouth at bedtime. 90 Tablet 3 5 Active Active Problems Problem Noted Date Diagnosed Date Diverticulitis 11/07/2023 Overview (11/07/2023): Sigmoid colon found on colonoscopy 04/16/2023 see scan if needed Agatston coronary artery calcium score less than 100 02/14/2017 Overview (02/14/2017): Scan 02/06/2017. Score of 0. See scanned document. Obstruction of right tear duct 04/27/2015 Cystocele 04/21/2014 Nephrolithiasis 05/15/2012 Melanoma of skin, site unspecified 03/20/2011 Overview (03/25/2012): Left forearm. Excision by Dr. Norwood. October 2010 Yolanda Stephenson M.D. 03/20/2011 1:40 PM FH: colon cancer 03/22/2010 Overview (04/27/2015): Colonoscopy by Dr. Svitlana Negron every 3 years. Last one 2013 Routine general medical exam ination at a health care facility 03/22/2010 Overview (04/27/2012): Dexa, mild osteopenia. Recheck 5 years. Yolanda Stephenson M.D. 04/27/2012 10:56 PM Unspecified essential hypertension 05/01/2007 Mixed hyperlipidemia 05/01/2007 Resolved Problems Problem Noted Date Diagnosed Date Resolved Date Pyelonephritis, unspecified 05/15/2012 03/31/2013 Encounters Date Type Department Care Team Description 01/30/2025 Travel 01/20/2025 Travel 01/15/2025 Travel 01/15/2025 E-Visit [facility] [address] [place] [address] Marisa Kovacs MD Hemoglobin 11/11/2024 9:05 AM CDT Office Visit [address] [address] Marisa Kovacs MD Medicare ANNUAL (subsequent) Visit (74 yo female) 11/11/2024 Travel 11/08/2024 Travel 11/04/2024 Refill [facility] [address] [place] [address] Marisa Kovacs MD Refill Request (Rosuvastatin, Hydrochlorothiazide, Losartan) from Last 3 Months Immunizations Immunization Administration Dates Next Due AMB Influenza, IIV3 (Age >=3 years)(Flu Clinic Only) 06/24/2013,06/17/2012 AMB Influenza, IIV4 PF (=>6 mos Flulaval,Fluzone Fluarix)(Flu Clinic Only) 06/18/2014 Amb Influenza, Inact (High-d ose) (Flu Clinic Only) 2016 Influenza, High-dose Inactivated 05/25/2017,05/28 Influenza, Inactivated AIIV4 (Age 65+ Years) Preserv Free 06/22/2023,06/19/2022,06/01/2021,06/17 Influenza, Inactivated IIV3 (Age 65+ Years) Preserv Free 06/19/2024,06/16/2019,06/24/2018,05/29 Pneumococcal Poly,23-Valent (Pneumovax) 05/25/2017 Pneumococcal conj 13-Valent (Prevnar 13) 05/09/2016 RSV, Recombinant ADJ Reconst ituted (Arexvy 120MCG/0.5mL) 09/07/2023 Td (Age >=7 Years) 07/16/1997 Tdap 12/12/2016,05/01/2007 Zoster (Shingrix-RZV, recombinant) 12/12/2018, Zoster (Zostavax-ZVL, live) 03/25/2012 Family History Medical History Relation Name Comments Brain Aneurysm Brother 1 Pelon Heart attack Brother 1 Pelon Heart failure Brother 1 Pelon Stroke Brother 1 Pelon eye Cancer-pancreatic Brother 2 Peyman Heart failure Brother 3 Sukhwinder Stroke Brother 3 Sukhwinder Liver disease Brother 4 Kenneth [place] Good Health Daughter 1 Good Health Daughter 2 Cancer-colon Father age 68 Hypertension Father Diabetes Maternal Aunt Cancer-colon Mother age 48 Diabetes Mother Hypertension Mother Cancer-colon Paternal Uncle age 60 Cancer-breast Sister 1 age 61 Diabetes type II Sister 2 Good Health Sister 3 Cancer-breast Son age 20 Anesthesia Problem No Family History Blood Disease No Family History Relation Name Status Comments Brother 1 Pelon Alive Brother 2 Peyman Brother 3 Sukhwinder Alive Brother 4 Kenneth Alive Daughter 1 Alive Daughter 2 Alive Father (Age 68) colon ca Maternal Aunt Maternal Grandmother Alive Mother Alive Paternal Uncle Sister 1 Alive Sister 2 Alive Sister 3 Alive Son Alive Social History Tobacco Use Types Packs/Day Years Used Date Smoking Tobacco: Never Smokeless Tobacco: Never Tobacco Cessation:Counseling Given: Yes Alcohol Use Standard Drinks/Week Comments Not Currently 0 (1 standard drink = 0.6 oz pur e alcohol) wine PHQ-2 Answer Date Recorded PHQ-2 TOTAL SCORE 0 11/11/2024 Social Connections Answer Date Recorded Do you often feel lonely or isolated from those around you? 0 11/08/2024 Financial Resource Strain Answer Date R ecorded Difficulty of Paying Living Expenses 3 11/08/2024 Difficulty of Paying Living Expenses Not on file 11/08/2024 Food Insecurity Answer Date Recorded Do you worry your food will run out before you are able to buy more? 1 11/08/2024 Transportation Needs Answer Date Record ed Does lack of transportation keep you from medica l appointments? 1 11/08/2024 Does lack of transportation keep you from work, meetings or getting things that you need? 1 11/08/2024 Housing Stability Answer Date Recorded What is your housing situation today? 1 11/08/2024 Utilities Answer Date Recorded Do you have trouble paying f or utilities (for example, heat, electricity, water, phone)? 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 Not on file Not on file Not on file Not on file Not on file Not on file Not on file Obstetrics History Para Term AB IAB SAB Ectopic Multiple Livin g Live Births 3 3 3 3 Date Outcome GA Total Labor Labor/2nd/3rd Weight Sex Type Anes PTL Corie A1 A5 Name Clin Term Term Term Last Filed Vital Signs Vital Sign Reading Time Taken Comments Blood Pressure 120/76 11/11/2024 9:09 AM CDT Pulse 79 11/11/2024 9:09 AM CDT Temperature 36.7 C (98 F) 10/20/2022 10:44 AM ELECTRONIC DATA INTERCHANGE SPECIALIST Respiratory Rate 14 07/29/2019 10:1 8 AM ELECTRONIC DATA INTERCHANGE SPECIALIST Oxygen Saturation 96% 11/11/2024 9:09 AM CDT Inhaled Oxygen Concentration - - Weight 76.6 kg (168 lb 12.8 oz) 11/11/2024 9:09 AM CDT Height 159.4 cm (5' 2.75) 11/11/2024 9:09 AM CD T Body Mass Index 30.14 11/11/2024 9:09 AM CDT Plan of Treatment Upcoming Encounters Date Type Department Care Team (Late st Contact Info) Description 02/04/2025 8:15 AM CDT Office Visit [facility] [address] [place] [address] Marisa Kovacs MD [address] [place] [address] Health Maintenance Due Date Last Done Comments COVID-19 vaccine series ( season) 2024 05/13/2024, 06/12/2023, 05/23/2022, Additional history exists Mammogram for age 45-75 08/05/2025 08/05/20 24, 08/01/2023, 07/31/2022, Additional history exists BMI (ht and wt on same day) for age 18+ 11/11/2025 11/11/2024, 11/07/2023, 08/29/2022, Additional history exists Depression screening for age 12+ 11/11/2025 11/11/2024, 11/07/2023, 07/24/2022, Additional history exists Medicare Wellness for age 65+ 11/12/2025 11/11/2024, 11/07/2023, 07/24/2022, Additional history exists Tetanus booster 12/12/2026 12/12/2016, 12/2006, 07/16/1997 Colonoscopy through age 75 04/16/202804/16, 04/16/2023 (Completed outside of [facility]), 01/01/2018, Additional history exists Lipids for age 45-75 11/11/2029 11/11/2024, 01/30/2024, 11/02/2023, Additional history exists Tdap Completed 12/12/2016, 05/01/2007 Pneumococcal series for age 50+ Completed 05/25/2017, 05/09/2016 Zoster (shingles) series for age 50+ Completed 12/12/2018, 09/25/2018, 03/25/2012 Hepatitis C screening for age 18-79 Completed 08/02/2020 (Completed outside of [facility]) RSV vaccine for adults or Completed 09/07/2023 DEXA/DXA scan for age 65+ Completed 2023, 05/09/2016, 04/18/2012 Influenza Vaccine Completed 06/19/2024, , 06/19/2022, Additional history exists Hepatitis B series for 19+ Aged Out N o longer eligible based on patient's age to complete this topic Procedures Procedure Name Priority Date/Time Associated Diagnosis Comments CBC W PLT NO DIFF Routine 01/20/2025 11: 18 AM CDT Weakness LIPID PANEL W REFLEX MEASURED LDL Routine 11/11/2024 10:31 AM CDT Mixed hyperlipidemia BASIC METABOLIC PANEL Routine 11/11/2024 10:31 AM CDT Essential hypertension TSH WITH REFLEX Routine 11/11/2024 10:31 AM CDT Hair thinning XR MAMMO LILLY BILAT SCREEN Routine 08/05/2024 9:04 AM ELECTRONIC DATA INTERCHANGE SPECIALIST Encounter for screening mammogram for malignant neoplasm of breast XR DXA BONE DENSITY 2 SITES AXIAL Routine 01/30/2024 8:51 AM CDT Asymptomatic postmenopausal state SCAN-COLONOSCOPY 04/16/2023 12:0 0 AM CDT from Last 3 Months or Most Recently Relevant to Health Maintenance Results * (ABNORMAL) CBC W PLT NO DIFF (01/20/2025 11:18 AM CDT) WHITE BLOOD CELL COUNT 6.7 3.8 - 10.8 Thousand/u L [facility] RED BLOOD CELL COUNT 3.55(L) 3.80 - 5.10 Million/uL [facility] HEMOGLOBIN 10.9(L) 11.7 - 15.5 g/dL [facility] HEMATOCRIT 32.4(L) 35.0 - 45.0 % [facility] MCV 91.3 80.0 - 100.0 fL [facility] MCH 30.7 27.0 - 33.0 pg [facility] MCHC 33.6 32.0 - 36.0 g/dL [facility] Comment: For adults, a slight decrease in the calculated MCHC value (in the range of 30 to 32 g/dL) is most likely not clinically significant; however, it should be interpreted with caution in correlation with other red cell parameters and the patient's clinical condition. RDW 14.6 11.0 - 15.0 % [facility] PLATELET COUNT 292 140 - 400 Thousand/u L [facility] MPV 9.4 7.5 - 12.5 fL [facility] Blood BLOOD SPECIMEN / Unknown 01/20/2025 11:18 AM CDT 01/20/2025 11:18 AM CDT Narrative [facility] - 01/21/2025 3:53 AM CDT FASTING:NO FASTING: NO Marisa Kovacs MD HEMATOLOGY Fi nal Result Performing Organization Address [facility]/ZIP Co de Phone Number [facility] [address] [address], [facility] [address] [facility] [place] [address] * TSH WITH REFLEX (11/11/2024 10:31 AM CDT) [facility] TSH W/REFLEX TO FT4 1.46 0.40 - 4.50 mIU/L [facility] Blood BLOOD SPECIMEN / Unknown 11/11/2024 10:31 AM CDT 11/11/2024 10:31 AM CDT Marisa Kovacs MD CHEMISTRY Fi nal Result [facility] [address] [place] [address], [facility] [address] [place] [address] * LIPID PANEL W REFLEX MEASURED LDL (11/11/2024 10:31 AM CDT) [facility] CHOLESTEROL, TOTAL 150 <200 mg/dL [facility] HDL CHOLESTEROL 67 > OR = 50 mg/dL [facility] TRIGLYCERIDES 77 <150 mg/dL [facility] LDL-CHOLESTEROL 67 mg/dL (calc) [facility] Comment: Reference range: <100 Desirable range <100 mg/dL for primary prevention; <70 mg/dL for patients with CHD or diabetic patients with > or = 2 CHD risk factors. LDL-C is now calculated using the Jazmin calculation, which is a validated novel method providing better accuracy than the Friedewald equation in the estimation of LDL-C. Alfredo SS et al. MAURICIO. 2013;310(19): 7713-4775 (http://education.[employer]/faq/VNI717) CHOL/HDLC RATIO 2.2 <5.0 (calc) [facility] NON HDL CHOLESTEROL 83 <130 mg/dL (calc) [facility] Comment: For patients with diabetes plus 1 major ASCVD risk factor, treating to a non-HDL-C goal of <100 mg/dL (LDL-C of <70 mg/dL) is considered a therapeutic option. Blood BLOOD SPECIMEN / Unknown 11/11/2024 10:31 AM CDT 11/11/2024 10:31 AM CDT Marisa Kovacs MD CHEMISTRY Fi nal Result [facility] [address] [place] [address], [place] [phone] [facility] [address] [place] [address] * BASIC METABOLIC PANEL (11/11/2024 10:31 AM CDT) [facility] GLUCOSE 94 65 - 99 mg/dL [facility] Comment: Fasting reference interval UREA NITROGEN (BUN) 17 7 - 25 mg/dL [facility] CREATININE 0.67 0.60 - 1.00 mg/dL [facility] EGFR 92 > OR = 60 mL/min/1. 73m2 [facility] BUN/CREATININE RATIO SEE NOTE: 6 - 22 (calc) [facility] Comment: Not Reported: BUN and Creatinine are within reference range. SODIUM 141 135 - 146 mmol/L [facility] POTASSIUM 3.9 3.5 - 5.3 mmol/L [facility] CHLORIDE 104 98 - 110 mmol/L [facility] CARBON DIOXIDE 28 20 - 32 mmol/L [facility] ELECTROLYTE BALANCE 9 7 - 17 mmol/L (calc) [facility] CALCIUM 9.6 8.6 - 10.4 mg/dL [facility] Blood BLOOD SPECIMEN / Unknown 11/11/2024 10:31 AM CDT 11/11/2024 10:31 AM CDT Marisa Kovacs MD CHEMISTRY Fi nal Result [facility] [address] [place] [address], [facility] [address] [place] [address] * XR MAMMO LILLY BILAT SCREEN (08/05/2024 9:04 AM ELECTRONIC DATA INTERCHANGE SPECIALIST) Anatomical Region Laterality Modality BREASTS, Breast Left, Breast Right Bilateral Mammography Impressions 08/05/2024 3:10 PM ELECTRONIC DATA INTERCHANGE SPECIALIST There is no radiographic evidence for malignancy. Recommend annual mammograms. MAMMOGRAM ASSESSMENT: ACR 1 Negative PATIENTS: You will also receive a letter with your examination results in an easy to read format. If you have questions about your results, please contact your referring provider. Narrative 08/05/2024 3:10 PM ELECTRONIC DATA INTERCHANGE SPECIALIST For Patients: As a result of the Cures Act, medical imaging exams and procedure reports are released immediately into your electronic medical record. You may view this report before your referring provider. If you have questions, please contact your health care provider. XR MAMMO LILLY BILAT SCREEN [[id number]] CLINICAL HISTORY: This is an asymptomatic 74 y.o. patient. INDICATION FOR EXAM: Mammogram Screening. TECHNIQUE: CC & MLO views were obtained. This study was evaluated with the assistance of Computer-Aided Detection. Breast Tomosynthesis was used in interpretation. COMPARISON FILM: Yes 08/01/23 [facility] 07/31/22 [facility] FINDINGS: There are scattered areas of fibroglandular density. There are no dominant masses, suspicious micro calcifications or areas of architectural distortion. us Marisa Kovacs MD MAMMO Fi nal Result * (ABNORMAL) XR DXA BONE DENSITY 2 SITES AXIAL (01/30/2024 8:51 AM CDT) Anatomical Region Laterality Modality Spine, HIPS, HIPL, HIPR Other Impressions 02/04/2024 4:00 PM CDT Osteopenia. RECOMMENDATIONS: The National Osteoporosis Foundation recommends pharmacologic treatment for patients with T-scores of -2.5 or less, patients with prior history of fragility fractures, or patients with 10-year probability of greater than 3% at hips or greater than 20% of suffering major osteoporotic fractures. Recommend continued optimization of calcium and vitamin D intake through dietary means and/or supplementation and regular exercise. Repeat scan recommended in 3-5 years. Adriana Coker PA-C [facility] 02/04/2024 Narrative 02/04/2024 4:00 PM CDT For Patients: Results are automatically released to your [facility] ([facility]) account once available, in compliance with federal regulations. This means that you may see your results before your provider has had a chance to review them. Please allow 2-3 business days for your provider to comment on the results. XR DXA Bone Mineral Density (BMD) EXAM LOCATION: [address] [address] PATIENT NAME: Genoveva Bosch DATE OF : 1950 EXAM DATE: 01/30/2024 REQUESTING PROVIDER: Marisa Kovacs MD GENDER AT : female HEIGHT: 5' 3 (11/07/2023) WEIGHT: 170 lb (11/07/2023) MENOPAUSAL STATUS: Postmenopausal RACE/ETHNICITY: White RISK FACTORS: Family History of Osteoporosis and White Race CURRENT MEDICATION FOR BONE LOSS: NONE INDICATION: ASYMPTOMATIC POSTMENOPAUSAL STATE COMPARISON DATE(S): 2015 DXA scans are compared to prior studies for a patient only when the two (or more) studies were performed on the same scanner. It is not possible to compare data generated on one scanner to data from another because there are not standards in DXA equipment. This applies even if the two scanners are made by the same procurement officer. PROCEDURE: Dual-energy x-ray absorptiometry performed with routine technique. Reporting is completed in the form of a T-score. The T-score represents the standard deviation from peak bone mass based on young healthy adult. A Z-score is used for diagnosis in premenopausal women, and for men under the age of 50. FINDINGS: RESULT LUMBAR SPINE L2 - L4 BMD: 1.167 g/cm2 T-Score: - 0.4 Z-Score: + 0.9 Change from prior in 2016: Increase 3.5%. RESULTS FEMUR Left femoral neck BMD: 0.825 g/cm2 T-Score: - 1.5 Z-Score: + 0.1 Change from prior in 2016: Decrease 8.6%. Right femoral neck BMD: 0.786 g/cm2 T-Score: - 1.8 Z-Score: - 0.2 Change from prior in 2016: Decrease 5.0%. Left hip BMD: 0.945 g/cm2 T-Score: - 0.5 Z-Score: + 0.9 Change from prior in 2016: Decrease 4.0%. Right hip BMD: 0.907 g/cm2 T-Score: - 0.8 Z-Score: + 0.6 Change from prior in 2016: Decrease 5.0%. WHO criteria: Normal: T-score at or above -1 SD Osteopenia: T-score between -1.1 and -2.4 SD Osteoporosis: T-score at or below -2.5 SD FRAX RISK CALCULATION (USED FOR OSTEOPENIA ONLY): 10-year probability of major osteoporotic fracture: 11.6%. 10-year probability of hip fracture: 2.5%. us Marisa Kovacs MD DEXA Fi nal Result * SCAN-COLONOSCOPY (04/16/2023 12:00 AM CDT) us Scanner OTHER Final Result from Last 3 Months or Most Recently Relevant to Health Maintenance Insurance MEDICARE PART B HB ONLY [facility] Advance Directives Documents on File Type Date Recorded Patient Stranner Expl anation Healthcare Directive 06/16/2019 2:55 PM h ealthcare directive 06/11/18 Care Teams Telescope Maintenance Relationship Specialty Start Date End Date Marisa Kovacs MD [address] [place] [address] PCP - General Family Practice 06/11/18
--- NOTE | 2025-01-30 18:42 | ED.GENADULT ---
HPI - General Adult General Chief complaint: Flank Pain Stated complaint: possible kidney stone Time Seen by Provider: 01/30/25 18:39 History of Present Illness HPI narrative: Patient presents to the emergency department complaining of left flank pain . Patient states pain has been going on all day however about 1 hour ago became unbearable. Patient states she has a hx of kidney stones and believes this to be one as well. 74-year-old woman presenting to the emergency department with concern of left flank pain. Has been experiencing some pain in the left flank over the course the day but became much more intense an hour ago. Cramping and sharp. She suspects kidney stone as has had them before. No fever. Noted diarrhea. No dysuria. Related Data Home Medications ?Medication ?Instructions ?Recorded ?Confirmed hydrochlorothiazide 25 mg tablet 25 mg PO DAILY 06/28/22 01/30/25 losartan 50 mg tablet 50 mg PO DAILY 06/28/22 01/30/25 Previous Rx's ?Medication ?Instructions ?Recorded hyoscyamine sulfate 0.125 mg 0.125 - 0.25 mg (1 - 2 x 0.125 mg) 01/30/25 disintegrating tablet PO QID PRN ureteral spasm #20 tabs oxycodone-acetaminophen 5 mg-325 1 - 2 tab PO Q4-6H PRN pain #10 01/30/25 mg tablet (Percocet) tabs tamsulosin 0.4 mg capsule (Flomax) 0.4 mg PO DAILY #15 caps 01/30/25 oxycodone-acetaminophen 5 mg-325 1 tab PO Q4-6H PRN pain #10 tabs 01/31/25 mg tablet Allergies Allergy/AdvReac Type Severity Reaction Status Date / Time No Known Drug Allergies Allergy Verified 01/30/25 18:33 Review of Systems Status of ROS: Reports: 6 or more systems reviewed and unremarkable except as noted in History and below PFSH PFS Social History Smoking Status: Never smoker How often do you have a drink containing alcohol: never AUDIT-C Alcohol total score: 0 Non-prescribed substance use: denies use Exam Narrative: Exam Narrative: Is pleasant. Restless apparent discomfort. Mildly labored in her breathing. Blood pressure is noted to be elevated. Lungs clear. Heart in regular rate and rhythm. Abdomen as a soft little overweight. Discomfort is not really in the abdomen be on the flank the left. Images are well perfused without edema. Const: Vital Signs, click to edit/add: Vital Signs - 24 hr 01/30/25 18:29 01/30/25 19:32 01/30/25 19:33 Temperature 97 F L Pulse Rate 66 68 Pulse Rate [Right Pulse Oximeter] 77 Respiratory Rate 26 H Blood Pressure 132/66 Blood Pressure [Ri ght Upper Arm] 193/79 H Pulse Oximetry 97 97 97 Oxygen Delivery Me thod Room Air 01/30/25 19:45 01/30/25 19:55 01/30/25 20:00 Temperature Pulse Rate 66 69 70 Pulse Rate [Right Pulse Oximeter] Respiratory Rate Blood Pressure 129/74 Blood Pressure [Ri ght Upper Arm] Pulse Oximetry 94 93 93 Oxygen Delivery Me thod 01/30/25 20:02 01/30/25 20:15 01/30/25 20:17 Temperature Pulse Rate 68 69 67 Pulse Rate [Right Pulse Oximeter] Respiratory Rate Blood Pressure 119/64 115/63 Blood Pressure [Ri ght Upper Arm] Pulse Oximetry 93 Oxygen Delivery Me thod 01/30/25 20:30 01/30/25 20:31 01/30/25 20:45 Temperature Pulse Rate 66 66 61 Pulse Rate [Right Pulse Oximeter] Respiratory Rate Blood Pressure 123/70 Blood Pressure [Ri ght Upper Arm] Pulse Oximetry 95 95 95 Oxygen Delivery Me thod Documenting provider has reviewed patient's vital signs: yes Course Vital Signs Vital signs: Initial Vital Signs Temperature 97 F L 01/30/25 18:29 Temperature Source Temporal Artery Scan 01/30/25 18:29 Pulse Rate 77 01/30/25 18:29 Pulse Rhythm Regular 01/30/25 18:29 Pulse Strength 3+ Normal 01/30/25 18:29 Respiratory Rate 26 H 01/30/25 18:29 Blood Pressure 193/79 H 01/30/25 18:29 Blood Pressure Mean 117 H 01/30/25 18:29 Pulse Oximetry 97 01/30/25 18:29 Oxygen Delivery Method Room Air 01/30/25 18:29 Vital Signs Temperature 97 F L 01/30/25 18:29 Pulse Rate 77 01/30/25 18:29 Respiratory Rate 26 H 01/30/25 18:29 Blood Pressure 193/79 H 01/30/25 18:29 Pulse Oximetry 97 01/30/25 18:29 Oxygen Delivery Method Room Air 01/30/25 18:29 Temperature 97 F L 01/30/25 18:29 Pulse Rate 61 01/30/25 20:45 Respiratory Rate 26 H 01/30/25 18:29 Blood Pressure 123/70 01/30/25 20:31 Pulse Oximetry 95 01/30/25 20:45 Oxygen Delivery Method Room Air 01/30/25 18:29 Medications Administered Medications: Discontinued Medications Generic Name Dose Route Start Last Admin Trade Name Ritesh PRN Reason Stop Dose Admin Hyoscyamine 0.25 mg 01/30/25 18:56 01/30/25 19:20 Hyoscyamine Sulfate 0.125 Mg Tab SUBLINGUAL 01/30/25 18:57 0.25 mg ONCE ONE Administration Ketorolac Tromethamine 15 mg 01/30/25 18:48 01/30/25 19:22 Ketorolac 15 Mg/Ml Inj IVP 01/30/25 18:49 15 mg ONCE ONE Administration Morphine Sulfate 4 mg 01/30/25 18:48 01/30/25 19:24 Morphine 4 Mg/Ml Inj IVP 01/30/25 18:49 4 mg ONCE ONE Administration Morphine Sulfate 4 mg 01/30/25 20:39 01/30/25 20:44 Morphine 4 Mg/Ml Inj IVP 01/30/25 20:40 4 mg ONCE ONE Administration Ondansetron HCl 4 mg 01/30/25 19:15 01/30/25 19:20 Ondansetron 2 Mg/Ml Inj IVP 01/30/25 19:16 4 mg ONCE ONE Administration Promethazine HCl 12.5 mg 01/30/25 20:59 01/30/25 21:04 Promethazine 25 Mg/Ml Inj IVP 01/30/25 21:00 12.5 mg ONCE ONE Administration Medical Decision Making [facility] Narrative Medical decision making narrative: Given apparent pain and history I also suspect nephrolithiasis with ureteral stone and colic. Will evaluate also for secondary infection. Ordered initially for IV fluids, morphine, ketorolac, Zofran. Sounds like may have vomited up initial Zofran from home. Also had taken 1 of her 's Flomax earlier in the day. Improved. Labs are reassuring with good renal function. CT scan abdomen pelvis noncontrast independently reviewed by me shows about a 5 mm stone at the left ureteropelvic junction. Radiology over-read below INDICATION: Severe left flank pain. TECHNIQUE: CT abdomen and pelvis without contrast. COMPARISON: June 30, 2022. FINDINGS: Lower chest: Scattered atelectasis. Liver: Normal in size and attenuation. No suspicious masses. Gallbladder and bile ducts: Prior cholecystectomy. Pancreas: Unremarkable. No mass or inflammation. Spleen: Normal in size. No masses. Adrenal glands: Normal in size. No nodules. Kidneys: Moderate left-sided hydroureteronephrosis secondary to 5 millimeter obstructing left UPJ stone. GI tract: Colonic diverticulosis. Normal in caliber. No sign of mass or inflammation. Normal appendix. Vasculature: Aortoiliac arterial calcifications. Abdominal aorta is normal in caliber. Lymph nodes: No lymphadenopathy. Peritoneum/Abdominal Wall: Unremarkable. No sign of mass or infiltration. No free air or significant free fluid. Pelvis: Hysterectomy. No pelvic masses. Bones: Unremarkable for age. IMPRESSION: Moderate left-sided hydronephrosis secondary to 5 millimeter obstructing left UPJ stone. Please note that all CT scans at this facility use dose modulation, iterative reconstruction, and/or weight-based dosing when appropriate to reduce radiation dose to as low as reasonably achievable. Dictated by Noah Coburn MD @ 01/30/2025 8:00:04 PM Due to size of stone a KUB might be helpful in follow-up if needed. With return of nausea and pain is further dosed with morphine and promethazine. Discussed options for outpatient as it does appear that we did get control of this pain. Stone should be passable but would monitor closely. INDICATION: Left ureteral stone. TECHNIQUE: Abdomen 1 view. COMPARISON: CT abdomen and pelvis 01/30/2025. FINDINGS: Bowel: Nonobstructive bowel gas pattern. The amount of colonic stool is within normal limits. Other: Supine positioning limits evaluation for free air. Cholecystectomy clips. Faint calcific density projects in the expected region of the left proximal ureter, which may represent the left ureteral stone. Osseous structures are intact. IMPRESSION: Faint calcific density projects in the expected region of the left proximal ureter, which may represent the left ureteral stone versus other calcification. Dictated by Shadi Rosales MD @ 01/30/2025 9:24:14 PM See patient discharge plan for further discussion. Continue to focus on hydration. Consider straining your urine over this next week. Can take Flomax daily until suspect stone passage. Be seen for uncontrolled pain, persistent vomiting, fever or pain lasting 4 - 5 days. I am sending in a prescription of Flomax for you to your pharmacy along with hyoscyamine if you like. Also more Percocet if needed per your concern. From [facility] tonight, ketorolac and Percocet and Zofran. Alternative to the ketorolac could be up to 800 mg of ibuprofen per dose. Lab Data Lab results reviewed: Yes I reviewed the patient's lab results Labs: Lab Results 01/30/25 Range/Units 19:10 WBC 10.28 (4.50-11.00) K/uL RBC 3.65 L (4.00-5.20) m/uL Hgb 11.0 L (12.0-16.0) gm/dL Hct 32.5 L (33.0-51.0) % MCV 89 (80-100) fL MCH 30 (26-34) pg MCHC 34 (32-36) gm/dL RDW Coeff of Kimberly 14.4 (11.5-15.5) % Plt Count 270 (140-440) K/uL Neut % (Auto) 77.7 H (42.0-72.0) % Lymph % (Auto) 13.5 L (20-44) % Falls % (Auto) 7.7 (0.0-11.0) % Eos % (Auto) 0.5 (0.0-7.0) % Baso % (Auto) 0.5 (0.0-3.0) % Neut # (Auto) 8.00 H (1.7-7.0) K/uL Lymph # (Auto) 1.40 (0.90-2.90) K/uL Falls # (Auto) 0.80 (0.00-0.90) K/UL Eos # (Auto) 0.05 (0.00-0.50) K/uL Baso # (Auto) 0.05 (0.00-0.30) K/uL Abs Immat Gran (auto) 0.01 (0.00-0.30) K/uL Imm/Tot Granulo (auto) 0.1 % Sodium 131 L (135-149) mmol/L Potassium 3.6 (3.6-5.1) mmol/L Chloride 98 (96-114) mmol/L Carbon Dioxide 23 (20-32) mmol/L Anion Gap 10 (7-15) mEq/L BUN 14 (7-30) mg/dL Creatinine 0.7 (0.5-1.5) mg/dL Estimated Creat Clear 40.83 Estimated GFR 91 ml/min Glucose 128 H (60-115) mg/dL Calcium 9.1 (8.4-10.6) mg/dL C-Reactive Protein < 0.5 L (0.5-1.0) mg/dL Discharge Plan Discharge Clinical Impression: Left ureteral calculus, Ureteral colic, Nephrolithiasis Patient Disposition: Home w/ Parent or Adult Condition: Improved Additional Instructions: Continue to focus on hydration. Consider straining your urine over this next week. Can take Flomax daily until suspect stone passage. Be seen for uncontrolled pain, persistent vomiting, fever or pain lasting 4 - 5 days. I am sending in a prescription of Flomax for you to your pharmacy along with hyoscyamine if you like. Also more Percocet if needed per your concern. From [facility] tonight, ketorolac and Percocet and Zofran. Alternative to the ketorolac could be up to 800 mg of ibuprofen per dose. Prescriptions: New tamsulosin [Flomax] 0.4 mg capsule 0.4 mg PO DAILY Qty: 15 0RF oxycodone-acetaminophen [Percocet] 5-325 mg tablet 1 - 2 tab PO Q4-6H PRN (Reason: pain) Qty: 10 0RF hyoscyamine sulfate 0.125 mg tablet,disintegrating 0.125 - 0.25 mg PO QID PRN (Reason: ureteral spasm) Qty: 20 0RF oxycodone-acetaminophen 5-325 mg tablet 1 tab PO Q4-6H PRN (Reason: pain) Qty: 10 0RF No Action losartan 50 mg tablet 50 mg PO DAILY Patient Comments: TAKE 1 TABLET (50 MG) BY MOUTH ONCE DAILY. hydrochlorothiazide 25 mg tablet 25 mg PO DAILY Patient Comments: TAKE 1 TABLET (25 MG) BY MOUTH ONCE DAILY. Follow Up/Referrals: Marisa Kovacs MD [Primary Care Provider, Family Practice] Stand Alone Forms: [facility] Info Instructions
--- NOTE | 2025-01-30 18:48 | CRLHL7_ITS ---
For Patients: As a result of the Century Cures Act, medical imaging exams and procedure reports are released immediately into your electronic medical record. You may view this report before your referring provider. If you have questions, please contact your health care provider. INDICATION: Severe left flank pain. TECHNIQUE: CT abdomen and pelvis without contrast. COMPARISON: June 30, 2022. FINDINGS: Lower chest: Scattered atelectasis. Liver: Normal in size and attenuation. No suspicious masses. Gallbladder and bile ducts: Prior cholecystectomy. Pancreas: Unremarkable. No mass or inflammation. Spleen: Normal in size. No masses. Adrenal glands: Normal in size. No nodules. Kidneys: Moderate left-sided hydroureteronephrosis secondary to 5 millimeter obstructing left UPJ stone. GI tract: Colonic diverticulosis. Normal in caliber. No sign of mass or inflammation. Normal appendix. Vasculature: Aortoiliac arterial calcifications. Abdominal aorta is normal in caliber. Lymph nodes: No lymphadenopathy. Peritoneum/Abdominal Wall: Unremarkable. No sign of mass or infiltration. No free air or significant free fluid. Pelvis: Hysterectomy. No pelvic masses. Bones: Unremarkable for age. IMPRESSION: Moderate left-sided hydronephrosis secondary to 5 millimeter obstructing left UPJ stone. Please note that all CT scans at this facility use dose modulation, iterative reconstruction, and/or weight-based dosing when appropriate to reduce radiation dose to as low as reasonably achievable. Dictated by Noah Coburn MD @ 01/30/2025 8:00:04 PM (Electronically Signed)
[2025-01-30 19:19] LABS: Basophils Absolute Auto 0.05 K/uL (0.00-0.30); Basophils Percent Auto 0.5 % (0.0-3.0); Eosinophils Absolute Auto 0.05 K/uL (0.00-0.50); Eosinophils Percent Auto 0.5 % (0.0-7.0); Hematocrit 32.5 % (33.0-51.0); Immature Granulocytes Abs Auto 0.01 K/uL (0.00-0.30); Immature Granulocytes Pct Auto 0.1 %; Lymphocytes Percent Auto 13.5 % (20-44); Mean Corpuscular HGB Conc 34 gm/dL (32-36); Mean Corpuscular Hemoglobin 30 pg (26-34); Mean Corpuscular Volume 89 fL (80-100); Monocytes Percent Auto 7.7 % (0.0-11.0); Neutrophils Percent Auto 77.7 % (42.0-72.0); Platelet Count* 270 K/uL (140-440); RDW Coefficient of Variation % 14.4 % (11.5-15.5); Red Blood Count 3.65 m/uL (4.00-5.20); White Blood Count* 10.28 K/uL (4.50-11.00)
[2025-01-30] MEDS: ONDANSETRON 2 MG/ML inj 4 MG IVP (19:20)
[2025-01-30] MEDS: HYOSCYAMINE SULFATE 0.125 MG TAB 0.25 MG SUBLINGUAL (19:20)
[2025-01-30] MEDS: KETOROLAC 15 MG/ML inj IVP (19:22)
[2025-01-30] MEDS: MORPHINE 4 MG/ML INJ IVP ×2 (19:24→20:44)
[2025-01-30 19:26] LABS: Slide Review Reflex No
[2025-01-30 19:44] LABS: Chloride* 98 mmol/L (96-114); Potassium* 3.6 mmol/L (3.6-5.1); Sodium* 131 mmol/L (135-149)
[2025-01-30 19:47] LABS: Anion Gap 10 mEq/L (7-15); Blood Urea Nitrogen* 14 mg/dL (7-30); Calcium* 9.1 mg/dL (8.4-10.6); Carbon Dioxide* 23 mmol/L (20-32); Creatinine* 0.7 mg/dL (0.5-1.5); Est. Creatinine Clearance* 40.83; Estimated Glomerular Filt Rate 91 ml/min; Glucose* 128 mg/dL (60-115)
[2025-01-30 19:54] LABS: C Reactive Protein* < 0.5 mg/dL (0.5-1.0)
--- NOTE | 2025-01-30 20:33 | CRLHL7_ITS ---
For Patients: As a result of the Century Cures Act, medical imaging exams and procedure reports are released immediately into your electronic medical record. You may view this report before your referring provider. If you have questions, please contact your health care provider. INDICATION: Left ureteral stone. TECHNIQUE: Abdomen 1 view. COMPARISON: CT abdomen and pelvis 01/30/2025. FINDINGS: Bowel: Nonobstructive bowel gas pattern. The amount of colonic stool is within normal limits. Other: Supine positioning limits evaluation for free air. Cholecystectomy clips. Faint calcific density projects in the expected region of the left proximal ureter, which may represent the left ureteral stone. Osseous structures are intact. IMPRESSION: Faint calcific density projects in the expected region of the left proximal ureter, which may represent the left ureteral stone versus other calcification. Dictated by Shdai Rosales MD @ 01/30/2025 9:24:14 PM (Electronically Signed)
[2025-01-30] MEDS: PROMETHAZINE 25 MG/ML INJ 12.5 MG IVP (21:04)
== END 2025-01-30 21:43 | disposition home or self-care (01) ==
PROVIDERS: Emergency Provider Family Medicine; PCP Family Medicine
DX: N20.2 Calculus of kidney with calculus of ureter (principal)
CPT/HCPCS: 36415; 51798; 74018; 74176; 80048; 81001; 85025; 86140; 96374; 96375; 99284; 99285; A9270; J1885; J2270; J2405; J2550